=== PATIENT | female | born 1935 | race Caucasian/White ===

== ENCOUNTER 2020-10-07 11:21 | Outpatient (CLI) | payer MEDICARE | END 2020-10-07 11:22 | disposition home or self-care (01) | LOC: CT 11:21 | PROVIDERS: ATTEND Physician Assistant | DX: I61.9 Nontraumatic intracerebral hemorrhage, unspecified (principal); G93.89 Other specified disorders of brain | CPT/HCPCS: 70450 ==

== ENCOUNTER 2021-04-19 09:22 | Inpatient (IN) | payer MEDICARE ==
[2021-04-19 10:10] LABS: #Basophils 0.1 thou/uL (0.0-0.2); #Eosinphils 0.4 thou/uL (0.0-0.7); #Lymphocytes 1.4 thou/uL (1.20-3.40); #Monocytes 0.5 thou/uL (0.11-0.59); #Neutrophils 3.7 thou/uL (1.40-6.50); %Eosinophils 5.8 % (0.0-10.0); %Lymphocytes 23.4 % (21.0-51.0); %Monocytes 8.5 % (0.0-10.0); %Neutrophils 61.3 % (42.0-75.0); Hemoglobin 10.4 g/dL (12.0-16.0); Mean Corpuscular HGB CONC 32.9 g/dL (32.0-36.0); Mean Corpuscular Hemoglobin 29.3 pg (27.0-31.0); Mean Corpuscular Volume 89.1 fL (78.0-98.0); Mean Platelet Volume 7.8 fL (7.4-10.4); Platelet Count 169 thou/uL (130-400); RBC Distribution Width 14.6 % (11.5-14.5); Red Blood Cell (RBC) Count 3.56 mill/uL (4.20-5.40)
[2021-04-19 11:21] LABS: SARS-CoV-2 NAA Rapid Test Not Detected (NotDetected)
[2021-04-19 11:43] LABS: Anion Gap 13 mmol/L (10-20); BUN (Urea Nitrogen) 14 mg/dL (9.8-20.1); Calc. Creatinine Clearance 0 mL/min (70-130); Calcium 8.6 mg/dL (7.8-10.44); Carbon Dioxide 22 mmol/L (23-31); Chloride 106 mmol/L (98-107); Glucose 89 mg/dL (83-110); Potassium 4.2 mmol/L (3.5-5.1); Sodium 137 mmol/L (136-145)
[2021-04-19 11:44] LABS: ALT (SGPT) 11 U/L (8-55); AST (SGOT) 20 U/L (5-34); Albumin 2.9 g/dL (3.4-4.8); Alkaline Phosphatase 97 U/L (40-110); Bilirubin, Total 0.4 mg/dL (0.2-1.2); Globulin 3.6 g/dL (2.4-3.5); Protein, Total 6.5 g/dL (5.8-8.1)
[2021-04-19] MEDS ORDERED: Furosemide 40 MG/4 ML VIAL ONE (13:58)
[2021-04-19] MEDS ORDERED: Ondansetron PF 4 MG/2 ML Vial IVP PRN (14:40)
[2021-04-19] MEDS: Heparin 5,000 UNITS/ML VIAL SC SCH ×2 (18:04→21:15)
[2021-04-19] MEDS: Ampicillin/Sulbactam 3 GM in Sodium Chloride 0.9% 100 ML IVPB SCH ×2 (18:05→23:34)
[2021-04-19 18:18] LABS: Troponin I 0.038 ng/mL (< 0.028)
[2021-04-19 18:29] VITALS: BMI 25.0
[2021-04-19] MEDS ORDERED: hydrALAZINE 10 MG TAB PO PRN (19:31)
[2021-04-19 20:01] LABS: Bacteria/HPF None Seen HPF (None Seen); Bilirubin Negative (Negative); Blood, Urine Negative (Negative); Clarity Clear (Clear); Glucose, Urine (Dipstick) Normal (Negative); Ketone, Urine Negative (Negative); Leukocyte Negative Leu/uL (Negative); Nitrite Negative (Negative); Protein, Urine (Dipstick) Negative (Neg-Trace); RBC/HPF 0-3 HPF (0-3); Specific Gravity, Urine 1.005 (1.002-1.036); Squamous Epithelial 0-3 HPF (0-3); Urobilinogen Normal mg/dL (Less than 2); WBC/HPF 0-3 HPF (0-3)
[2021-04-19 20:12] LABS: Urine Culture Reflex No No
[2021-04-19] MEDS: Furosemide 40 MG/4 ML VIAL SLOW IVP SCH (21:15)
[2021-04-20] MEDS: Ampicillin/Sulbactam 3 GM in Sodium Chloride 0.9% 100 ML IVPB SCH ×4 (04:46→20:48)
[2021-04-20 05:32] LABS: #Eosinphils 0.4 thou/uL (0.0-0.7); #Lymphocytes 1.2 thou/uL (1.20-3.40); #Monocytes 0.6 thou/uL (0.11-0.59); #Neutrophils 4.5 thou/uL (1.40-6.50); %Basophils 0.5 % (0.0-1.0); %Eosinophils 5.7 % (0.0-10.0); %Monocytes 9.4 % (0.0-10.0); %Neutrophils 66.5 % (42.0-75.0); Hemoglobin 10.6 g/dL (12.0-16.0); Mean Corpuscular HGB CONC 31.8 g/dL (32.0-36.0); Mean Corpuscular Hemoglobin 28.2 pg (27.0-31.0); Mean Corpuscular Volume 88.7 fL (78.0-98.0); Mean Platelet Volume 7.3 fL (7.4-10.4); Platelet Count 235 thou/uL (130-400); RBC Distribution Width 14.5 % (11.5-14.5); Red Blood Cell (RBC) Count 3.76 mill/uL (4.20-5.40); White Blood Cell (WBC) Count 6.8 thou/uL (4.8-10.8)
[2021-04-20 05:58] LABS: Anion Gap 14 mmol/L (10-20); BUN (Urea Nitrogen) 13 mg/dL (9.8-20.1); Calc. Creatinine Clearance 37 mL/min (70-130); Carbon Dioxide 30 mmol/L (23-31); Chloride 98 mmol/L (98-107); Sodium 139 mmol/L (136-145)
[2021-04-20 05:59] LABS: Calcium 8.9 mg/dL (7.8-10.44); Glucose 80 mg/dL (83-110)
[2021-04-20] MEDS ORDERED: Potassium Chloride 20 MEQ TAB PO SCH (08:00)
[2021-04-20] MEDS ORDERED: Hydrochlorothiazide 25 MG TAB PO SCH (09:00)
[2021-04-20] MEDS: Losartan 25 MG TAB PO SCH (09:09)
[2021-04-20] MEDS: Amlodipine 5 MG TAB PO SCH (09:10)
[2021-04-20] MEDS: Heparin 5,000 UNITS/ML VIAL SC SCH ×3 (09:10→20:46)
[2021-04-20] MEDS: Venlafaxine HCl XR 150 MG CAP PO SCH (09:10)
[2021-04-20] MEDS: Furosemide 40 MG/4 ML VIAL SLOW IVP SCH ×2 (09:10→20:50)
[2021-04-20] MEDS ORDERED: Labetalol HCl 100 MG/20 ML VIAL ONE (09:34)
[2021-04-20] MEDS ORDERED: Melatonin 3 MG TAB PO PRN (11:18)
[2021-04-20] MEDS ORDERED: Polyethylene Glycol 3350 17 GM Packet PO PRN (11:18)
[2021-04-20] MEDS: Sucralfate 1 GM TAB PO SCH ×3 (11:58→20:48)
[2021-04-20] MEDS: Simethicone Chewable 80 MG TAB PO SCH ×2 (16:12→20:47)
[2021-04-21] MEDS: Ampicillin/Sulbactam 3 GM in Sodium Chloride 0.9% 100 ML IVPB SCH ×2 (03:31→10:07)
[2021-04-21] MEDS: Furosemide 40 MG/4 ML VIAL SLOW IVP SCH ×2 (10:07→21:11)
[2021-04-21] MEDS: Aspirin 81 mg Enteric Coated Tablet PO SCH (10:08)
[2021-04-21] MEDS: Losartan 25 MG TAB PO SCH (10:08)
[2021-04-21] MEDS: Amlodipine 5 MG TAB PO SCH (10:08)
[2021-04-21] MEDS: Venlafaxine HCl XR 150 MG CAP PO SCH (10:08)
[2021-04-21] MEDS: Simethicone Chewable 80 MG TAB PO SCH ×3 (10:09→21:11)
[2021-04-21] MEDS: Atorvastatin Calcium 40 MG TAB PO SCH (10:09)
[2021-04-21] MEDS: Heparin 5,000 UNITS/ML VIAL SC SCH ×3 (10:09→21:12)
[2021-04-21] MEDS: Sucralfate 1 GM TAB PO SCH ×4 (10:09→21:12)
[2021-04-21 12:03] LABS: #Basophils 0.1 thou/uL (0.0-0.2); #Eosinphils 0.2 thou/uL (0.0-0.7); #Lymphocytes 1.5 thou/uL (1.20-3.40); #Monocytes 0.7 thou/uL (0.11-0.59); #Neutrophils 4.9 thou/uL (1.40-6.50); %Basophils 0.8 % (0.0-1.0); %Eosinophils 3.3 % (0.0-10.0); %Lymphocytes 20.3 % (21.0-51.0); %Monocytes 8.8 % (0.0-10.0); %Neutrophils 66.9 % (42.0-75.0); Hemoglobin 11.8 g/dL (12.0-16.0); Mean Corpuscular Hemoglobin 30.2 pg (27.0-31.0); Mean Corpuscular Volume 88.7 fL (78.0-98.0); Mean Platelet Volume 7.2 fL (7.4-10.4); Platelet Count 231 thou/uL (130-400); RBC Distribution Width 14.4 % (11.5-14.5); Red Blood Cell (RBC) Count 3.91 mill/uL (4.20-5.40); White Blood Cell (WBC) Count 7.4 thou/uL (4.8-10.8)
[2021-04-21] MEDS ORDERED: Amiodarone 150 MG, Admixture Fee 1 EACH in Dextrose 5% in Water 100 ML IVPB SCH (12:15)
[2021-04-21 12:20] LABS: Anion Gap 15 mmol/L (10-20); BUN (Urea Nitrogen) 17 mg/dL (9.8-20.1); Calc. Creatinine Clearance 37 mL/min (70-130); Calcium 8.7 mg/dL (7.8-10.44); Carbon Dioxide 32 mmol/L (23-31); Chloride 96 mmol/L (98-107); Glucose 104 mg/dL (83-110); Potassium 3.2 mmol/L (3.5-5.1); Sodium 140 mmol/L (136-145)
[2021-04-21] MEDS: Amiodarone 450 MG, Admixture Fee 1 EACH in Dextrose 5% in Water 250 ML IVPB SCH ×2 (13:03→21:30)
[2021-04-21] MEDS ORDERED: Acetaminophen 325 MG TAB PO PRN (22:39)
[2021-04-22 04:46] LABS: #Basophils 0.1 thou/uL (0.0-0.2); #Eosinphils 0.4 thou/uL (0.0-0.7); #Lymphocytes 1.9 thou/uL (1.20-3.40); #Monocytes 0.6 thou/uL (0.11-0.59); #Neutrophils 3.8 thou/uL (1.40-6.50); %Basophils 0.9 % (0.0-1.0); %Eosinophils 6.1 % (0.0-10.0); %Lymphocytes 27.9 % (21.0-51.0); %Monocytes 8.2 % (0.0-10.0); %Neutrophils 56.8 % (42.0-75.0); Hemoglobin 10.4 g/dL (12.0-16.0); Mean Corpuscular HGB CONC 33.5 g/dL (32.0-36.0); Mean Corpuscular Hemoglobin 29.5 pg (27.0-31.0); Mean Corpuscular Volume 88.2 fL (78.0-98.0); Mean Platelet Volume 7.3 fL (7.4-10.4); Platelet Count 211 thou/uL (130-400); RBC Distribution Width 14.3 % (11.5-14.5); Red Blood Cell (RBC) Count 3.51 mill/uL (4.20-5.40); White Blood Cell (WBC) Count 6.7 thou/uL (4.8-10.8)
[2021-04-22 04:57] LABS: Anion Gap 13 mmol/L (10-20); BUN (Urea Nitrogen) 21 mg/dL (9.8-20.1); Calc. Creatinine Clearance 30 mL/min (70-130); Calcium 8.8 mg/dL (7.8-10.44); Carbon Dioxide 32 mmol/L (23-31); Chloride 94 mmol/L (98-107); Glucose 105 mg/dL (83-110); Sodium 136 mmol/L (136-145)
[2021-04-22 05:00] LABS: Potassium 2.7 mmol/L (3.5-5.1)
[2021-04-22] MEDS ORDERED: Electrolyte Replacement Protocol FS PRN (06:00)
[2021-04-22] MEDS: Potassium Chloride 20 MEQ TAB PO SCH ×2 (06:04→09:16)
[2021-04-22] MEDS: Simethicone Chewable 80 MG TAB PO SCH ×3 (09:16→20:06)
[2021-04-22] MEDS: Aspirin 81 mg Enteric Coated Tablet PO SCH (09:16)
[2021-04-22] MEDS: Atorvastatin Calcium 40 MG TAB PO SCH (09:16)
[2021-04-22] MEDS: Amlodipine 5 MG TAB PO SCH (09:17)
[2021-04-22] MEDS: Heparin 5,000 UNITS/ML VIAL SC SCH ×3 (09:17→20:05)
[2021-04-22] MEDS: Sucralfate 1 GM TAB PO SCH ×4 (09:17→20:06)
[2021-04-22] MEDS: Venlafaxine HCl XR 150 MG CAP PO SCH (09:17)
[2021-04-22] MEDS: Amiodarone 450 MG, Admixture Fee 1 EACH in Dextrose 5% in Water 250 ML IVPB SCH (11:19)
[2021-04-22] MEDS ORDERED: FLU VACC QS2021-22(65YR UP)/PF 240 MCG/0.7 ML SYRINGE IM ONE (18:45)
[2021-04-22] MEDS ORDERED: Amiodarone 200 MG TAB PO SCH (19:15)
[2021-04-22] MEDS: Furosemide 40 MG/4 ML VIAL SLOW IVP SCH (20:07)
[2021-04-23 04:57] LABS: #Eosinphils 0.4 thou/uL (0.0-0.7); #Lymphocytes 1.8 thou/uL (1.20-3.40); #Monocytes 0.5 thou/uL (0.11-0.59); #Neutrophils 3.6 thou/uL (1.40-6.50); %Basophils 0.4 % (0.0-1.0); %Eosinophils 6.6 % (0.0-10.0); %Lymphocytes 28.7 % (21.0-51.0); %Monocytes 8.5 % (0.0-10.0); %Neutrophils 55.8 % (42.0-75.0); Mean Corpuscular HGB CONC 33.1 g/dL (32.0-36.0); Mean Corpuscular Hemoglobin 29.5 pg (27.0-31.0); Mean Platelet Volume 7.4 fL (7.4-10.4); Platelet Count 210 thou/uL (130-400); RBC Distribution Width 14.4 % (11.5-14.5); White Blood Cell (WBC) Count 6.4 thou/uL (4.8-10.8)
[2021-04-23 05:10] LABS: Anion Gap 11 mmol/L (10-20); BUN (Urea Nitrogen) 24 mg/dL (9.8-20.1); Calc. Creatinine Clearance 26 mL/min (70-130); Calcium 9.1 mg/dL (7.8-10.44); Carbon Dioxide 33 mmol/L (23-31); Chloride 96 mmol/L (98-107); Glucose 89 mg/dL (83-110); Potassium 3.3 mmol/L (3.5-5.1); Sodium 137 mmol/L (136-145)
[2021-04-23] MEDS ORDERED: Potassium Chloride 20 MEQ TAB PO SCH (07:00)
[2021-04-23] MEDS: Venlafaxine HCl XR 150 MG CAP PO SCH (08:41)
[2021-04-23] MEDS: Furosemide 40 MG/4 ML VIAL SLOW IVP SCH (08:41)
[2021-04-23] MEDS: Simethicone Chewable 80 MG TAB PO SCH ×3 (08:41→20:43)
[2021-04-23] MEDS: Aspirin 81 mg Enteric Coated Tablet PO SCH (08:41)
[2021-04-23] MEDS: Heparin 5,000 UNITS/ML VIAL SC SCH ×3 (08:43→20:43)
[2021-04-23] MEDS: Atorvastatin Calcium 40 MG TAB PO SCH (08:43)
[2021-04-23] MEDS: Amiodarone 200 MG TAB PO SCH ×2 (08:43→20:43)
[2021-04-23] MEDS: Sucralfate 1 GM TAB PO SCH ×4 (08:43→20:43)
[2021-04-24 08:09] LABS: #Eosinphils 0.4 thou/uL (0.0-0.7); #Lymphocytes 1.4 thou/uL (1.20-3.40); #Monocytes 0.5 thou/uL (0.11-0.59); #Neutrophils 4.7 thou/uL (1.40-6.50); %Basophils 0.2 % (0.0-1.0); %Eosinophils 5.2 % (0.0-10.0); %Lymphocytes 19.7 % (21.0-51.0); %Monocytes 7.4 % (0.0-10.0); %Neutrophils 67.5 % (42.0-75.0); Hemoglobin 10.4 g/dL (12.0-16.0); Mean Corpuscular HGB CONC 32.1 g/dL (32.0-36.0); Mean Corpuscular Hemoglobin 28.4 pg (27.0-31.0); Mean Corpuscular Volume 88.6 fL (78.0-98.0); Mean Platelet Volume 7.6 fL (7.4-10.4); Platelet Count 197 thou/uL (130-400); RBC Distribution Width 14.3 % (11.5-14.5); Red Blood Cell (RBC) Count 3.65 mill/uL (4.20-5.40)
[2021-04-24] MEDS: Amiodarone 200 MG TAB PO SCH (08:28)
[2021-04-24] MEDS: Simethicone Chewable 80 MG TAB PO SCH ×2 (08:28→16:00)
[2021-04-24] MEDS: Atorvastatin Calcium 40 MG TAB PO SCH (08:28)
[2021-04-24] MEDS: Aspirin 81 mg Enteric Coated Tablet PO SCH (08:28)
[2021-04-24] MEDS: Sucralfate 1 GM TAB PO SCH ×3 (08:28→16:01)
[2021-04-24] MEDS: Venlafaxine HCl XR 150 MG CAP PO SCH (08:28)
[2021-04-24 08:29] LABS: Anion Gap 12 mmol/L (10-20); BUN (Urea Nitrogen) 28 mg/dL (9.8-20.1); Calc. Creatinine Clearance 24 mL/min (70-130); Calcium 9.4 mg/dL (7.8-10.44); Carbon Dioxide 30 mmol/L (23-31); Chloride 96 mmol/L (98-107); Glucose 85 mg/dL (83-110); Potassium 3.5 mmol/L (3.5-5.1); Sodium 134 mmol/L (136-145)
[2021-04-24] MEDS: Heparin 5,000 UNITS/ML VIAL SC SCH ×2 (08:29→16:00)
[2021-04-24] MEDS ORDERED: Potassium Chloride 20 MEQ TAB PO SCH (09:00)
[2021-04-24 16:27] VITALS: BP 111/57; TEMP 98.3
== END 2021-04-24 18:21 | DRG 291 ==
LOC: ERS 09:22 → 2NO 14:35
PROVIDERS: ADMIT Internal Medicine; ATTEND Internal Medicine
DX: I13.0 Hypertensive heart and chronic kidney disease with heart failure and stage 1 through stage 4 chronic kidney disease, or unspecified chronic kidney disease (principal); J96.21 Acute and chronic respiratory failure with hypoxia; Z66 Do not resuscitate; I50.31 Acute diastolic (congestive) heart failure; I69.354 Hemiplegia and hemiparesis following cerebral infarction affecting left non-dominant side; N39.0 Urinary tract infection, site not specified; Z20.822 Contact with and (suspected) exposure to COVID-19; F41.9 Anxiety disorder, unspecified; E78.5 Hyperlipidemia, unspecified; I73.9 Peripheral vascular disease, unspecified; I48.0 Paroxysmal atrial fibrillation; N18.30 Chronic kidney disease, stage 3 unspecified; Z96.659 Presence of unspecified artificial knee joint; E87.6 Hypokalemia; I95.9 Hypotension, unspecified; Z89.422 Acquired absence of other left toe(s); Z90.710 Acquired absence of both cervix and uterus; Z79.82 Long term (current) use of aspirin; Z79.899 Other long term (current) drug therapy; Z89.421 Acquired absence of other right toe(s); Z98.890 Other specified postprocedural states
CPT/HCPCS: 0240U; 36415; 71045; 80048; 80053; 81001; 83880; 84145; 84484; 85025; 90471; 90662; 93005; 93306; 96374; G0008; J0282; J0295; J1644; J1940; J3490; J7070

== ENCOUNTER 2021-06-23 08:34 | Inpatient (IN) | payer MEDICARE ==
[2021-06-23] MEDS ORDERED: Furosemide 40 MG/4 ML VIAL ONE (09:02)
[2021-06-23 09:43] LABS: #Eosinphils 0.2 thou/uL (0.0-0.7); #Lymphocytes 0.8 thou/uL (1.20-3.40); #Monocytes 0.4 thou/uL (0.11-0.59); #Neutrophils 5.9 thou/uL (1.40-6.50); %Basophils 0.3 % (0.0-1.0); %Eosinophils 2.2 % (0.0-10.0); %Lymphocytes 11.1 % (21.0-51.0); %Monocytes 5.2 % (0.0-10.0); %Neutrophils 81.2 % (42.0-75.0); Hemoglobin 9.8 g/dL (12.0-16.0); Mean Corpuscular HGB CONC 31.1 g/dL (32.0-36.0); Mean Corpuscular Hemoglobin 28.3 pg (27.0-31.0); Mean Corpuscular Volume 91.2 fL (78.0-98.0); Mean Platelet Volume 7.6 fL (7.4-10.4); Platelet Count 189 thou/uL (130-400); Red Blood Cell (RBC) Count 3.45 mill/uL (4.20-5.40); White Blood Cell (WBC) Count 7.2 thou/uL (4.8-10.8)
[2021-06-23 09:53] LABS: ALT (SGPT) Less than 7 U/L (8-55); AST (SGOT) 13 U/L (5-34); Albumin 3.5 g/dL (3.4-4.8); Alkaline Phosphatase 91 U/L (40-110); Anion Gap 13 mmol/L (10-20); BUN (Urea Nitrogen) 17 mg/dL (9.8-20.1); Bilirubin, Total 0.5 mg/dL (0.2-1.2); CK (CPK) 23 U/L (29-168); Calc. Creatinine Clearance 0 mL/min (70-130); Calcium 8.8 mg/dL (7.8-10.44); Carbon Dioxide 28 mmol/L (23-31); Chloride 103 mmol/L (98-107); Globulin 3.1 g/dL (2.4-3.5); Glucose 102 mg/dL (83-110); Lipase 19 U/L (8-78); Potassium 3.7 mmol/L (3.5-5.1); Protein, Total 6.6 g/dL (5.8-8.1); Sodium 140 mmol/L (136-145)
[2021-06-23 09:56] LABS: CKMB 0.7 ng/mL (0-6.6)
[2021-06-23 10:15] LABS: SARS-CoV-2 NAA Rapid Test Not Detected (NotDetected)
[2021-06-23 11:04] LABS: Bacteria/HPF 4+ HPF (None Seen); Bilirubin Negative (Negative); Blood, Urine Negative (Negative); Clarity Clear (Clear); Glucose, Urine (Dipstick) Normal (Negative); Ketone, Urine Negative (Negative); Leukocyte 75 Leu/uL (Negative); Nitrite 1+ (Negative); Protein, Urine (Dipstick) Negative (Neg-Trace); RBC/HPF 0-3 HPF (0-3); Specific Gravity, Urine 1.009 (1.002-1.036); Urobilinogen Normal mg/dL (Less than 2); pH, Urine 5.5 (5.0-9.0)
[2021-06-23] MEDS ORDERED: Iopamidol-370 76% 500 ML 1 ML ONE (11:25)
[2021-06-23] MEDS ORDERED: cefTRIAXone\\ROCEPHIN 1 GM VIAL ONE (12:18)
[2021-06-23] MEDS ORDERED: Melatonin 3 MG TAB PO PRN (12:39)
[2021-06-23] MEDS ORDERED: hydrALAZINE 10 MG TAB PO PRN (12:39)
[2021-06-23] MEDS ORDERED: Polyethylene Glycol 3350 17 GM Packet PO PRN (12:39)
[2021-06-23] MEDS ORDERED: Ondansetron PF 4 MG/2 ML Vial IVP PRN (12:46)
[2021-06-23] MEDS ORDERED: Acetaminophen 500 MG TAB PO SCH (13:15)
[2021-06-23] MEDS ORDERED: Furosemide 40 MG/4 ML VIAL SLOW IVP SCH (14:00)
[2021-06-23 14:18] LABS: Troponin I 0.034 ng/mL (< 0.028)
[2021-06-23] MEDS: Sucralfate 1 GM TAB PO SCH ×2 (17:44→21:33)
[2021-06-23] MEDS: Acetaminophen 500 MG TAB PO SCH ×2 (17:44→21:33)
[2021-06-23] MEDS: Simethicone Chewable 80 MG TAB PO SCH ×2 (17:45→21:34)
[2021-06-23] MEDS: Amiodarone 200 MG TAB PO SCH (21:34)
[2021-06-24] MEDS ORDERED: Sodium Chloride 0.9% 500 ML IV SCH (01:45)
[2021-06-24 04:25] LABS: Hemoglobin 10.9 g/dL (12.0-16.0); Mean Corpuscular Hemoglobin 28.8 pg (27.0-31.0); Mean Corpuscular Volume 90.1 fL (78.0-98.0); Mean Platelet Volume 7.5 fL (7.4-10.4); Platelet Count 209 thou/uL (130-400); RBC Distribution Width 13.9 % (11.5-14.5); Red Blood Cell (RBC) Count 3.78 mill/uL (4.20-5.40); White Blood Cell (WBC) Count 14.8 thou/uL (4.8-10.8)
[2021-06-24] MEDS: Acetaminophen 500 MG TAB PO SCH ×6 (04:28→20:30)
[2021-06-24 04:39] LABS: Anion Gap 14 mmol/L (10-20); BUN (Urea Nitrogen) 19 mg/dL (9.8-20.1); Calc. Creatinine Clearance 25 mL/min (70-130); Calcium 8.5 mg/dL (7.8-10.44); Carbon Dioxide 27 mmol/L (23-31); Chloride 100 mmol/L (98-107); Glucose 80 mg/dL (83-110); Sodium 138 mmol/L (136-145)
[2021-06-24] MEDS ORDERED: Furosemide 40 MG/4 ML VIAL SLOW IVP SCH (06:00)
[2021-06-24] MEDS ORDERED: Potassium Chloride 20 MEQ TAB PO SCH (06:00)
[2021-06-24 06:14] LABS: Band 13 % (5-11); Eosinophils 3 % (0-10); Lymphocytes 5 % (21-51); MDiff Complete? YES; Neutrophil 79 % (42-75)
[2021-06-24] MEDS ORDERED: Potassium Bicarbonate/Cit Ac 25 MEQ TAB PO SCH (08:00)
[2021-06-24 08:10] LABS: Magnesium 1.6 mg/dL (1.6-2.6)
[2021-06-24] MEDS ORDERED: Amlodipine 5 MG TAB PO SCH (09:00)
[2021-06-24] MEDS ORDERED: Losartan 25 MG TAB PO SCH (09:00)
[2021-06-24] MEDS: Venlafaxine HCl XR 150 MG CAP PO SCH (09:08)
[2021-06-24] MEDS: Aspirin 81 mg Enteric Coated Tablet PO SCH (09:09)
[2021-06-24] MEDS: Atorvastatin Calcium 40 MG TAB PO SCH (09:09)
[2021-06-24] MEDS: Sucralfate 1 GM TAB PO SCH ×4 (09:09→20:32)
[2021-06-24] MEDS: Docusate 100 MG CAP PO SCH (09:09)
[2021-06-24] MEDS: Simethicone Chewable 80 MG TAB PO SCH ×3 (09:09→20:30)
[2021-06-24] MEDS: Senokot S 8.6-50 MG TAB PO SCH (09:09)
[2021-06-24] MEDS: Amiodarone 200 MG TAB PO SCH ×2 (09:10→20:31)
[2021-06-24] MEDS: Cholecalciferol 1,000 UNITS (25 MCG) TAB PO SCH (09:10)
[2021-06-24] MEDS: cefTRIAXone\\ROCEPHIN 1 GM in Sodium Chloride 0.9% 100 ML IVPB SCH (11:34)
[2021-06-25] MEDS: Acetaminophen 500 MG TAB PO SCH ×6 (01:26→21:04)
[2021-06-25 04:38] LABS: Hemoglobin 9.6 g/dL (12.0-16.0); Mean Corpuscular HGB CONC 31.2 g/dL (32.0-36.0); Mean Corpuscular Hemoglobin 28.1 pg (27.0-31.0); Mean Corpuscular Volume 90.1 fL (78.0-98.0); Mean Platelet Volume 7.8 fL (7.4-10.4); Platelet Count 187 thou/uL (130-400); Red Blood Cell (RBC) Count 3.42 mill/uL (4.20-5.40); White Blood Cell (WBC) Count 18.1 thou/uL (4.8-10.8)
[2021-06-25 05:17] LABS: Anion Gap 16 mmol/L (10-20); BUN (Urea Nitrogen) 26 mg/dL (9.8-20.1); Calc. Creatinine Clearance 23 mL/min (70-130); Calcium 8.6 mg/dL (7.8-10.44); Carbon Dioxide 26 mmol/L (23-31); Chloride 101 mmol/L (98-107); Glucose 87 mg/dL (83-110); Potassium 3.8 mmol/L (3.5-5.1); Sodium 139 mmol/L (136-145)
[2021-06-25 05:18] LABS: Band 8 % (5-11); Eosinophils 1 % (0-10); Lymphocytes 3 % (21-51); MDiff Complete? YES; Monocytes 2 % (0-10); Neutrophil 86 % (42-75)
[2021-06-25] MEDS: Senokot S 8.6-50 MG TAB PO SCH (08:58)
[2021-06-25] MEDS: Amiodarone 200 MG TAB PO SCH ×2 (08:59→21:03)
[2021-06-25] MEDS: Cholecalciferol 1,000 UNITS (25 MCG) TAB PO SCH (08:59)
[2021-06-25] MEDS: Sucralfate 1 GM TAB PO SCH ×4 (08:59→21:03)
[2021-06-25] MEDS: Simethicone Chewable 80 MG TAB PO SCH ×3 (09:00→21:03)
[2021-06-25] MEDS: Furosemide 20 MG/2 ML VIAL SLOW IVP SCH (09:00)
[2021-06-25] MEDS: Atorvastatin Calcium 40 MG TAB PO SCH (09:00)
[2021-06-25] MEDS: Aspirin 81 mg Enteric Coated Tablet PO SCH (09:00)
[2021-06-25] MEDS: Docusate 100 MG CAP PO SCH (09:00)
[2021-06-25] MEDS: Venlafaxine HCl XR 150 MG CAP PO SCH (09:01)
[2021-06-25] MEDS: cefTRIAXone\\ROCEPHIN 1 GM in Sodium Chloride 0.9% 100 ML IVPB SCH (11:50)
[2021-06-26] MEDS: Acetaminophen 500 MG TAB PO SCH ×6 (02:23→21:12)
[2021-06-26] MEDS: Venlafaxine HCl XR 150 MG CAP PO SCH (10:21)
[2021-06-26] MEDS: Docusate 100 MG CAP PO SCH (10:21)
[2021-06-26] MEDS: Sucralfate 1 GM TAB PO SCH ×4 (10:21→21:13)
[2021-06-26] MEDS: Cholecalciferol 1,000 UNITS (25 MCG) TAB PO SCH (10:22)
[2021-06-26] MEDS: Atorvastatin Calcium 40 MG TAB PO SCH (10:22)
[2021-06-26] MEDS: Aspirin 81 mg Enteric Coated Tablet PO SCH (10:22)
[2021-06-26] MEDS: Amiodarone 200 MG TAB PO SCH ×2 (10:22→21:13)
[2021-06-26] MEDS: Senokot S 8.6-50 MG TAB PO SCH (10:22)
[2021-06-26] MEDS: Furosemide 20 MG/2 ML VIAL SLOW IVP SCH (10:23)
[2021-06-26] MEDS: Simethicone Chewable 80 MG TAB PO SCH ×3 (10:23→21:19)
[2021-06-26] MEDS: cefTRIAXone\\ROCEPHIN 1 GM in Sodium Chloride 0.9% 100 ML IVPB SCH (12:09)
[2021-06-27] MEDS: Acetaminophen 500 MG TAB PO SCH ×6 (01:00→20:38)
[2021-06-27 05:42] LABS: Anion Gap 11 mmol/L (10-20); BUN (Urea Nitrogen) 24 mg/dL (9.8-20.1); Calc. Creatinine Clearance 29 mL/min (70-130); Calcium 8.7 mg/dL (7.8-10.44); Carbon Dioxide 31 mmol/L (23-31); Chloride 100 mmol/L (98-107); Glucose 89 mg/dL (83-110); Potassium 3.4 mmol/L (3.5-5.1); Sodium 139 mmol/L (136-145)
[2021-06-27 06:17] LABS: #Eosinphils 0.6 thou/uL (0.0-0.7); #Lymphocytes 0.9 thou/uL (1.20-3.40); #Monocytes 0.4 thou/uL (0.11-0.59); #Neutrophils 6.8 thou/uL (1.40-6.50); %Basophils 0.1 % (0.0-1.0); %Eosinophils 7.1 % (0.0-10.0); %Lymphocytes 10.1 % (21.0-51.0); %Neutrophils 77.8 % (42.0-75.0); Hemoglobin 9.4 g/dL (12.0-16.0); Mean Corpuscular HGB CONC 31.5 g/dL (32.0-36.0); Mean Corpuscular Hemoglobin 28.5 pg (27.0-31.0); Mean Corpuscular Volume 90.6 fL (78.0-98.0); Mean Platelet Volume 7.8 fL (7.4-10.4); Platelet Count 178 thou/uL (130-400); RBC Distribution Width 14.2 % (11.5-14.5); Red Blood Cell (RBC) Count 3.28 mill/uL (4.20-5.40); White Blood Cell (WBC) Count 8.7 thou/uL (4.8-10.8)
[2021-06-27] MEDS: Sucralfate 1 GM TAB PO SCH ×4 (07:30→20:39)
[2021-06-27] MEDS ORDERED: Potassium Bicarbonate/Cit Ac 25 MEQ TAB PO SCH (08:00)
[2021-06-27] MEDS: Cholecalciferol 1,000 UNITS (25 MCG) TAB PO SCH (10:23)
[2021-06-27] MEDS: Docusate 100 MG CAP PO SCH (10:23)
[2021-06-27] MEDS: Simethicone Chewable 80 MG TAB PO SCH ×3 (10:24→20:39)
[2021-06-27] MEDS: Amiodarone 200 MG TAB PO SCH ×2 (10:24→20:38)
[2021-06-27] MEDS: Atorvastatin Calcium 40 MG TAB PO SCH (10:24)
[2021-06-27] MEDS: Senokot S 8.6-50 MG TAB PO SCH (10:24)
[2021-06-27] MEDS: Venlafaxine HCl XR 150 MG CAP PO SCH (10:25)
[2021-06-27] MEDS: Furosemide 20 MG/2 ML VIAL SLOW IVP SCH (10:25)
[2021-06-27] MEDS: Ciprofloxacin Lactate/D5W 200 MG in Premix Bag 1 BAG IVPB SCH ×2 (10:26→20:39)
[2021-06-28] MEDS: Acetaminophen 500 MG TAB PO SCH ×6 (01:33→20:17)
[2021-06-28 05:41] LABS: #Eosinphils 0.5 thou/uL (0.0-0.7); #Lymphocytes 1.5 thou/uL (1.20-3.40); #Monocytes 0.6 thou/uL (0.11-0.59); #Neutrophils 4.5 thou/uL (1.40-6.50); %Eosinophils 7.5 % (0.0-10.0); %Lymphocytes 21.2 % (21.0-51.0); %Monocytes 8.4 % (0.0-10.0); %Neutrophils 62.9 % (42.0-75.0); Mean Corpuscular HGB CONC 31.6 g/dL (32.0-36.0); Mean Corpuscular Hemoglobin 28.5 pg (27.0-31.0); Mean Corpuscular Volume 90.2 fL (78.0-98.0); Mean Platelet Volume 8.2 fL (7.4-10.4); Platelet Count 190 thou/uL (130-400); Red Blood Cell (RBC) Count 3.15 mill/uL (4.20-5.40); White Blood Cell (WBC) Count 7.2 thou/uL (4.8-10.8)
[2021-06-28 06:06] LABS: Anion Gap 11 mmol/L (10-20); BUN (Urea Nitrogen) 22 mg/dL (9.8-20.1); Calc. Creatinine Clearance 34 mL/min (70-130); Calcium 8.5 mg/dL (7.8-10.44); Carbon Dioxide 31 mmol/L (23-31); Chloride 99 mmol/L (98-107); Glucose 84 mg/dL (83-110); Potassium 3.3 mmol/L (3.5-5.1); Sodium 138 mmol/L (136-145)
[2021-06-28] MEDS ORDERED: PROPOFOL 200 MG/20 ML VIAL ONE (09:33)
[2021-06-28] MEDS ORDERED: Potassium Chloride 20 MEQ TAB PO SCH (10:00)
[2021-06-28] MEDS ORDERED: Apixaban 2.5 MG TAB PO SCH (10:00)
[2021-06-28] MEDS: Sucralfate 1 GM TAB PO SCH ×4 (11:01→20:20)
[2021-06-28] MEDS: Simethicone Chewable 80 MG TAB PO SCH ×3 (11:01→20:17)
[2021-06-28] MEDS: Venlafaxine HCl XR 150 MG CAP PO SCH (11:01)
[2021-06-28] MEDS: Docusate 100 MG CAP PO SCH (11:01)
[2021-06-28] MEDS: Atorvastatin Calcium 40 MG TAB PO SCH (11:01)
[2021-06-28] MEDS: Cholecalciferol 1,000 UNITS (25 MCG) TAB PO SCH (11:02)
[2021-06-28] MEDS: Ciprofloxacin Lactate/D5W 200 MG in Premix Bag 1 BAG IVPB SCH ×2 (11:02→20:20)
[2021-06-28] MEDS: Senokot S 8.6-50 MG TAB PO SCH (11:02)
[2021-06-28] MEDS: Amiodarone 200 MG TAB PO SCH ×2 (11:02→20:20)
[2021-06-28] MEDS: Furosemide 20 MG/2 ML VIAL SLOW IVP SCH (11:36)
[2021-06-28] MEDS ORDERED: Furosemide 20 MG/2 ML VIAL SLOW IVP SCH (12:45)
[2021-06-28] MEDS: Apixaban 2.5 MG TAB PO SCH (20:19)
[2021-06-29] MEDS: Acetaminophen 500 MG TAB PO SCH ×6 (04:26→21:12)
[2021-06-29 05:33] LABS: #Eosinphils 0.4 thou/uL (0.0-0.7); #Lymphocytes 2.3 thou/uL (1.20-3.40); #Monocytes 0.6 thou/uL (0.11-0.59); #Neutrophils 4.8 thou/uL (1.40-6.50); %Eosinophils 5.2 % (0.0-10.0); %Lymphocytes 28.7 % (21.0-51.0); %Monocytes 7.6 % (0.0-10.0); %Neutrophils 58.5 % (42.0-75.0); Hemoglobin 9.9 g/dL (12.0-16.0); Mean Corpuscular Volume 90.3 fL (78.0-98.0); Mean Platelet Volume 7.8 fL (7.4-10.4); Platelet Count 208 thou/uL (130-400); RBC Distribution Width 14.2 % (11.5-14.5); Red Blood Cell (RBC) Count 3.55 mill/uL (4.20-5.40); White Blood Cell (WBC) Count 8.2 thou/uL (4.8-10.8)
[2021-06-29 05:44] LABS: Anion Gap 12 mmol/L (10-20); BUN (Urea Nitrogen) 21 mg/dL (9.8-20.1); Calc. Creatinine Clearance 31 mL/min (70-130); Calcium 9.3 mg/dL (7.8-10.44); Carbon Dioxide 32 mmol/L (23-31); Chloride 99 mmol/L (98-107); Glucose 89 mg/dL (83-110); Potassium 3.9 mmol/L (3.5-5.1); Sodium 139 mmol/L (136-145)
[2021-06-29] MEDS ORDERED: Potassium Chloride 20 MEQ TAB PO SCH (08:30)
[2021-06-29] MEDS: Ciprofloxacin Lactate/D5W 200 MG in Premix Bag 1 BAG IVPB SCH ×2 (09:09→21:11)
[2021-06-29] MEDS: Docusate 100 MG CAP PO SCH (09:10)
[2021-06-29] MEDS: Atorvastatin Calcium 40 MG TAB PO SCH (09:10)
[2021-06-29] MEDS: Amiodarone 200 MG TAB PO SCH ×2 (09:10→21:12)
[2021-06-29] MEDS: Senokot S 8.6-50 MG TAB PO SCH (09:10)
[2021-06-29] MEDS: Venlafaxine HCl XR 150 MG CAP PO SCH (09:10)
[2021-06-29] MEDS: Sucralfate 1 GM TAB PO SCH ×4 (09:10→21:12)
[2021-06-29] MEDS: Apixaban 2.5 MG TAB PO SCH ×2 (09:10→21:15)
[2021-06-29] MEDS: Cholecalciferol 1,000 UNITS (25 MCG) TAB PO SCH (09:10)
[2021-06-29] MEDS: Simethicone Chewable 80 MG TAB PO SCH ×3 (09:10→21:12)
[2021-06-30] MEDS: Acetaminophen 500 MG TAB PO SCH ×6 (01:00→21:12)
[2021-06-30 05:09] LABS: Iron 18 ug/dL (50-170); Iron Binding Capacity, Total 160 mcg/dL (265-497)
[2021-06-30 05:30] LABS: Ferritin 289.27 ng/mL (10-291); Thyroid Stimulating Hormone 1.3042 uIU/mL (0.35-4.94)
[2021-06-30] MEDS ORDERED: Furosemide 20 MG TAB PO SCH (09:00)
[2021-06-30] MEDS: Apixaban 2.5 MG TAB PO SCH ×2 (09:13→21:12)
[2021-06-30] MEDS: Cholecalciferol 1,000 UNITS (25 MCG) TAB PO SCH (09:13)
[2021-06-30] MEDS: Senokot S 8.6-50 MG TAB PO SCH (09:13)
[2021-06-30] MEDS: Potassium Chloride 20 MEQ TAB PO SCH (09:13)
[2021-06-30] MEDS: Amiodarone 200 MG TAB PO SCH (09:13)
[2021-06-30] MEDS: Docusate 100 MG CAP PO SCH (09:13)
[2021-06-30] MEDS: Atorvastatin Calcium 40 MG TAB PO SCH (09:13)
[2021-06-30] MEDS: Simethicone Chewable 80 MG TAB PO SCH ×3 (09:14→21:11)
[2021-06-30] MEDS: Venlafaxine HCl XR 150 MG CAP PO SCH (09:14)
[2021-06-30] MEDS: Sucralfate 1 GM TAB PO SCH ×4 (09:14→21:12)
[2021-06-30] MEDS: Ciprofloxacin Lactate/D5W 200 MG in Premix Bag 1 BAG IVPB SCH ×2 (09:17→21:13)
[2021-06-30] MEDS ORDERED: Amiodarone 200 MG TAB PO SCH ×2 (09:24→09:30)
[2021-06-30] MEDS ORDERED: Furosemide 20 MG/2 ML VIAL SLOW IVP SCH (09:30)
[2021-06-30] MEDS ORDERED: Potassium Chloride 20 MEQ TAB PO SCH (12:00)
[2021-06-30] MEDS: Furosemide 20 MG/2 ML VIAL SLOW IVP SCH (14:07)
[2021-06-30] MEDS ORDERED: Folic Acid 1 MG TAB PO SCH (14:15)
[2021-06-30] MEDS: Spironolactone 25 MG TAB PO SCH (16:05)
[2021-07-01] MEDS: Acetaminophen 500 MG TAB PO SCH ×6 (03:39→20:38)
[2021-07-01 05:09] LABS: Anion Gap 12 mmol/L (10-20); BUN (Urea Nitrogen) 17 mg/dL (9.8-20.1); Calc. Creatinine Clearance 32 mL/min (70-130); Calcium 8.7 mg/dL (7.8-10.44); Carbon Dioxide 29 mmol/L (23-31); Chloride 100 mmol/L (98-107); Glucose 81 mg/dL (83-110); Sodium 137 mmol/L (136-145)
[2021-07-01] MEDS: Furosemide 20 MG/2 ML VIAL SLOW IVP SCH (05:28)
[2021-07-01] MEDS: Potassium Chloride 20 MEQ TAB PO SCH (08:32)
[2021-07-01] MEDS: Venlafaxine HCl XR 150 MG CAP PO SCH (08:32)
[2021-07-01] MEDS: Cholecalciferol 1,000 UNITS (25 MCG) TAB PO SCH (08:32)
[2021-07-01] MEDS: Simethicone Chewable 80 MG TAB PO SCH ×3 (08:32→20:38)
[2021-07-01] MEDS: Atorvastatin Calcium 40 MG TAB PO SCH (08:32)
[2021-07-01] MEDS: Folic Acid 1 MG TAB PO SCH (08:33)
[2021-07-01] MEDS: Sucralfate 1 GM TAB PO SCH ×4 (08:33→20:38)
[2021-07-01] MEDS: Spironolactone 25 MG TAB PO SCH ×2 (08:33→16:14)
[2021-07-01] MEDS: Docusate 100 MG CAP PO SCH (08:34)
[2021-07-01] MEDS: Ciprofloxacin Lactate/D5W 200 MG in Premix Bag 1 BAG IVPB SCH ×2 (08:34→20:37)
[2021-07-01] MEDS: Senokot S 8.6-50 MG TAB PO SCH (08:34)
[2021-07-01] MEDS ORDERED: Furosemide 40 MG/4 ML VIAL SLOW IVP SCH (09:00)
[2021-07-01] MEDS ORDERED: Amiodarone 200 MG TAB PO SCH (09:00)
[2021-07-01] MEDS ORDERED: Ferrous Sulfate 325 MG TAB PO SCH ×2 (09:30)
[2021-07-01] MEDS: Amiodarone 200 MG TAB PO SCH ×2 (09:40→20:38)
[2021-07-01] MEDS: Furosemide 40 MG/4 ML VIAL SLOW IVP SCH (13:24)
[2021-07-01] MEDS ORDERED: Furosemide 20 MG/2 ML VIAL SLOW IVP SCH (14:00)
[2021-07-01] MEDS: Ferrous Sulfate 325 MG TAB PO SCH (16:13)
[2021-07-01 23:07] LABS: SARS-CoV-2 PCR by NAA Not Detected (NotDetected)
[2021-07-02] MEDS: Acetaminophen 500 MG TAB PO SCH ×6 (01:22→21:22)
[2021-07-02 05:24] LABS: Anion Gap 17 mmol/L (10-20); BUN (Urea Nitrogen) 18 mg/dL (9.8-20.1); Calc. Creatinine Clearance 29 mL/min (70-130); Calcium 8.8 mg/dL (7.8-10.44); Carbon Dioxide 23 mmol/L (23-31); Chloride 98 mmol/L (98-107); Glucose 82 mg/dL (83-110); Potassium 3.9 mmol/L (3.5-5.1); Sodium 134 mmol/L (136-145)
[2021-07-02] MEDS: Furosemide 40 MG/4 ML VIAL SLOW IVP SCH ×2 (06:12→14:43)
[2021-07-02] MEDS: Ciprofloxacin Lactate/D5W 200 MG in Premix Bag 1 BAG IVPB SCH ×2 (08:50→21:22)
[2021-07-02] MEDS: Senokot S 8.6-50 MG TAB PO SCH (08:51)
[2021-07-02] MEDS: Venlafaxine HCl XR 150 MG CAP PO SCH (08:51)
[2021-07-02] MEDS: Folic Acid 1 MG TAB PO SCH (08:52)
[2021-07-02] MEDS: Simethicone Chewable 80 MG TAB PO SCH ×3 (08:52→21:22)
[2021-07-02] MEDS: Docusate 100 MG CAP PO SCH (08:52)
[2021-07-02] MEDS: Ferrous Sulfate 325 MG TAB PO SCH ×2 (08:52→17:43)
[2021-07-02] MEDS: Spironolactone 25 MG TAB PO SCH ×2 (08:53→17:43)
[2021-07-02] MEDS: Amiodarone 200 MG TAB PO SCH ×2 (08:53→21:22)
[2021-07-02] MEDS: Atorvastatin Calcium 40 MG TAB PO SCH (08:53)
[2021-07-02] MEDS: Sucralfate 1 GM TAB PO SCH ×4 (08:53→21:22)
[2021-07-02] MEDS: Cholecalciferol 1,000 UNITS (25 MCG) TAB PO SCH (08:53)
[2021-07-02] MEDS: Potassium Chloride 20 MEQ TAB PO SCH (08:53)
[2021-07-03] MEDS ORDERED: Norepinephrine 8 MG/0.9% NS 250 ML ONE (02:15)
[2021-07-03] MEDS: Norepinephrine 8 MG/0.9% NS 250 ML IVPB SCH (02:30)
[2021-07-03] MEDS: Acetaminophen 500 MG TAB PO SCH ×6 (02:53→20:51)
[2021-07-03 04:25] LABS: Anion Gap 15 mmol/L (10-20); BUN (Urea Nitrogen) 26 mg/dL (9.8-20.1); Calc. Creatinine Clearance 23 mL/min (70-130); Calcium 8.9 mg/dL (7.8-10.44); Carbon Dioxide 28 mmol/L (23-31); Chloride 99 mmol/L (98-107); Glucose 90 mg/dL (83-110); Potassium 3.8 mmol/L (3.5-5.1); Sodium 138 mmol/L (136-145)
[2021-07-03] MEDS: Furosemide 40 MG/4 ML VIAL SLOW IVP SCH (06:23)
[2021-07-03] MEDS: Sucralfate 1 GM TAB PO SCH ×4 (08:05→20:51)
[2021-07-03] MEDS: Ferrous Sulfate 325 MG TAB PO SCH ×2 (08:05→18:07)
[2021-07-03] MEDS: Potassium Chloride 20 MEQ TAB PO SCH (08:05)
[2021-07-03] MEDS: Amiodarone 200 MG TAB PO SCH (08:50)
[2021-07-03] MEDS: Spironolactone 25 MG TAB PO SCH (08:50)
[2021-07-03] MEDS ORDERED: Sodium Chloride 0.9% 500 ML IV SCH (09:15)
[2021-07-03] MEDS: Folic Acid 1 MG TAB PO SCH (09:59)
[2021-07-03] MEDS: Docusate 100 MG CAP PO SCH (09:59)
[2021-07-03] MEDS: Atorvastatin Calcium 40 MG TAB PO SCH (09:59)
[2021-07-03] MEDS: Senokot S 8.6-50 MG TAB PO SCH (09:59)
[2021-07-03] MEDS: Simethicone Chewable 80 MG TAB PO SCH ×3 (10:01→20:52)
[2021-07-03] MEDS: Ciprofloxacin Lactate/D5W 200 MG in Premix Bag 1 BAG IVPB SCH (10:05)
[2021-07-03] MEDS: Cholecalciferol 1,000 UNITS (25 MCG) TAB PO SCH (10:05)
[2021-07-03] MEDS: Venlafaxine HCl XR 150 MG CAP PO SCH (10:16)
[2021-07-04] MEDS: Norepinephrine 8 MG/0.9% NS 250 ML IVPB SCH (00:11)
[2021-07-04] MEDS: Acetaminophen 500 MG TAB PO SCH ×6 (01:52→20:09)
[2021-07-04 03:49] LABS: Anion Gap 15 mmol/L (10-20); BUN (Urea Nitrogen) 22 mg/dL (9.8-20.1); Calc. Creatinine Clearance 25 mL/min (70-130); Calcium 8.6 mg/dL (7.8-10.44); Carbon Dioxide 22 mmol/L (23-31); Chloride 100 mmol/L (98-107); Glucose 81 mg/dL (83-110); Potassium 4.2 mmol/L (3.5-5.1); Sodium 133 mmol/L (136-145)
[2021-07-04] MEDS: Simethicone Chewable 80 MG TAB PO SCH ×3 (09:58→20:09)
[2021-07-04] MEDS: Ferrous Sulfate 325 MG TAB PO SCH ×2 (09:58→15:29)
[2021-07-04] MEDS: Docusate 100 MG CAP PO SCH (09:59)
[2021-07-04] MEDS: Senokot S 8.6-50 MG TAB PO SCH (09:59)
[2021-07-04] MEDS: Folic Acid 1 MG TAB PO SCH (09:59)
[2021-07-04] MEDS: Atorvastatin Calcium 40 MG TAB PO SCH (09:59)
[2021-07-04] MEDS: Venlafaxine HCl XR 150 MG CAP PO SCH (10:00)
[2021-07-04] MEDS: Sucralfate 1 GM TAB PO SCH ×4 (10:03→20:09)
[2021-07-04] MEDS: Cholecalciferol 1,000 UNITS (25 MCG) TAB PO SCH (10:03)
[2021-07-05] MEDS: Acetaminophen 500 MG TAB PO SCH ×6 (01:28→20:32)
[2021-07-05] MEDS: Sucralfate 1 GM TAB PO SCH ×4 (07:25→20:33)
[2021-07-05] MEDS: Atorvastatin Calcium 40 MG TAB PO SCH (07:49)
[2021-07-05] MEDS: Senokot S 8.6-50 MG TAB PO SCH (07:49)
[2021-07-05] MEDS: Folic Acid 1 MG TAB PO SCH (07:50)
[2021-07-05] MEDS: Venlafaxine HCl XR 150 MG CAP PO SCH (07:50)
[2021-07-05] MEDS: Ferrous Sulfate 325 MG TAB PO SCH ×2 (07:50→16:58)
[2021-07-05] MEDS: Docusate 100 MG CAP PO SCH (07:50)
[2021-07-05] MEDS: Simethicone Chewable 80 MG TAB PO SCH ×3 (07:50→20:32)
[2021-07-05] MEDS: Cholecalciferol 1,000 UNITS (25 MCG) TAB PO SCH (07:51)
[2021-07-06] MEDS: Acetaminophen 500 MG TAB PO SCH ×6 (03:16→21:33)
[2021-07-06] MEDS: Simethicone Chewable 80 MG TAB PO SCH ×3 (10:01→21:35)
[2021-07-06] MEDS: Docusate 100 MG CAP PO SCH (10:02)
[2021-07-06] MEDS: Cholecalciferol 1,000 UNITS (25 MCG) TAB PO SCH (10:02)
[2021-07-06] MEDS: Venlafaxine HCl XR 150 MG CAP PO SCH (10:03)
[2021-07-06] MEDS: Sucralfate 1 GM TAB PO SCH ×4 (10:03→21:35)
[2021-07-06] MEDS: Folic Acid 1 MG TAB PO SCH (10:03)
[2021-07-06] MEDS: Ferrous Sulfate 325 MG TAB PO SCH ×2 (10:03→17:27)
[2021-07-06] MEDS: Atorvastatin Calcium 40 MG TAB PO SCH (10:03)
[2021-07-06] MEDS: Senokot S 8.6-50 MG TAB PO SCH (10:04)
[2021-07-06 12:51] VITALS: BMI 20.8
[2021-07-07] MEDS: Acetaminophen 500 MG TAB PO SCH ×6 (01:36→20:01)
[2021-07-07] MEDS ORDERED: Furosemide 40 MG TAB PO SCH (07:30)
[2021-07-07] MEDS ORDERED: Potassium Chloride 20 MEQ TAB PO SCH (08:00)
[2021-07-07] MEDS: Folic Acid 1 MG TAB PO SCH (09:15)
[2021-07-07] MEDS: Cholecalciferol 1,000 UNITS (25 MCG) TAB PO SCH (09:15)
[2021-07-07] MEDS: Atorvastatin Calcium 40 MG TAB PO SCH (09:15)
[2021-07-07] MEDS: Venlafaxine HCl XR 150 MG CAP PO SCH (09:15)
[2021-07-07] MEDS: Sucralfate 1 GM TAB PO SCH ×4 (09:15→20:01)
[2021-07-07] MEDS: Simethicone Chewable 80 MG TAB PO SCH ×3 (09:16→20:01)
[2021-07-07] MEDS: Ferrous Sulfate 325 MG TAB PO SCH ×2 (09:16→16:36)
[2021-07-07] MEDS: Docusate 100 MG CAP PO SCH (10:24)
[2021-07-07] MEDS: Senokot S 8.6-50 MG TAB PO SCH (10:24)
[2021-07-07 20:11] VITALS: BP 143/64; TEMP 97.4
== END 2021-07-07 21:01 | DRG 291 ==
LOC: ERS 08:34 → ERHOLD 12:03 → 2NO 15:15 → CCU 07-03 02:25 → 2NO 07-05 16:05
PROVIDERS: ADMIT Internal Medicine; ATTEND Family Medicine
PROC: 5A2204Z Restoration of Cardiac Rhythm, Single (ICD-10-PCS; principal; 2021-06-28)
PROC: B24BZZ4 Ultrasonography of Heart with Aorta, Transesophageal (ICD-10-PCS; 2021-06-28)
PROC: 3E033XZ Introduction of Vasopressor into Peripheral Vein, Percutaneous Approach (ICD-10-PCS; 2021-07-03)
DX: I13.0 Hypertensive heart and chronic kidney disease with heart failure and stage 1 through stage 4 chronic kidney disease, or unspecified chronic kidney disease (principal); Z20.822 Contact with and (suspected) exposure to COVID-19; Z66 Do not resuscitate; I50.33 Acute on chronic diastolic (congestive) heart failure; J96.21 Acute and chronic respiratory failure with hypoxia; R57.1 Hypovolemic shock; N39.0 Urinary tract infection, site not specified; Q21.1 Atrial septal defect; J98.11 Atelectasis; I96 Gangrene, not elsewhere classified; I24.8 Other forms of acute ischemic heart disease; I48.21 Permanent atrial fibrillation; I08.3 Combined rheumatic disorders of mitral, aortic and tricuspid valves; B96.1 Klebsiella pneumoniae [K. pneumoniae] as the cause of diseases classified elsewhere; B96.20 Unspecified Escherichia coli [E. coli] as the cause of diseases classified elsewhere; B96.89 Other specified bacterial agents as the cause of diseases classified elsewhere; D50.9 Iron deficiency anemia, unspecified; N18.30 Chronic kidney disease, stage 3 unspecified; Z96.659 Presence of unspecified artificial knee joint; E87.6 Hypokalemia; E78.5 Hyperlipidemia, unspecified; I27.20 Pulmonary hypertension, unspecified; R77.8 Other specified abnormalities of plasma proteins; E83.42 Hypomagnesemia; Z79.899 Other long term (current) drug therapy; Z79.82 Long term (current) use of aspirin; Z86.73 Personal history of transient ischemic attack (TIA), and cerebral infarction without residual deficits; Z98.890 Other specified postprocedural states; Z90.710 Acquired absence of both cervix and uterus; Z89.422 Acquired absence of other left toe(s); Z89.421 Acquired absence of other right toe(s); Z99.81 Dependence on supplemental oxygen
CPT/HCPCS: 36415; 71045; 71275; 80048; 80053; 81003; 81015; 82550; 82553; 82607; 82728; 82746; 83540; 83550; 83605; 83690; 83735; 83880; 84443; 84484; 85025; 85379; 87040; 87077; 87086; 87186; 92960; 93005; 93010; 93306; 93312; 96365; 96375; J0696; J0744; J1940; J2704; J3490; J7030; Q9967; U0002; U0003; U0005

== ENCOUNTER 2021-08-10 16:33 | Emergency (ER) | payer MEDICARE ==
[2021-08-10 17:27] LABS: #Eosinphils 0.1 thou/uL (0.0-0.7); #Lymphocytes 1.1 thou/uL (1.20-3.40); #Monocytes 0.7 thou/uL (0.11-0.59); %Basophils 0.2 % (0.0-1.0); %Lymphocytes 15.7 % (21.0-51.0); %Neutrophils 72.1 % (42.0-75.0); Hemoglobin 10.5 g/dL (12.0-16.0); Mean Corpuscular Hemoglobin 28.5 pg (27.0-31.0); Mean Corpuscular Volume 89.1 fL (78.0-98.0); Platelet Count 215 thou/uL (130-400); RBC Distribution Width 14.7 % (11.5-14.5); Red Blood Cell (RBC) Count 3.68 mill/uL (4.20-5.40)
[2021-08-10 17:51] LABS: ALT (SGPT) 11 U/L (8-55); AST (SGOT) 18 U/L (5-34); Albumin 3.6 g/dL (3.4-4.8); Alkaline Phosphatase 90 U/L (40-110); Anion Gap 16 mmol/L (10-20); BUN (Urea Nitrogen) 22 mg/dL (9.8-20.1); Bilirubin, Total 0.5 mg/dL (0.2-1.2); CK (CPK) 19 U/L (29-168); Calc. Creatinine Clearance 0 mL/min (70-130); Calcium 8.9 mg/dL (7.8-10.44); Carbon Dioxide 27 mmol/L (23-31); Chloride 98 mmol/L (98-107); Globulin 3.5 g/dL (2.4-3.5); Glucose 81 mg/dL (83-110); Lipase 13 U/L (8-78); Magnesium 2.1 mg/dL (1.6-2.6); Potassium 4.1 mmol/L (3.5-5.1); Protein, Total 7.1 g/dL (5.8-8.1); Sodium 137 mmol/L (136-145)
[2021-08-10 21:17] LABS: Bilirubin Negative (Negative); Blood, Urine 3+ (Negative); Clarity Clear (Clear); Glucose, Urine (Dipstick) Normal (Negative); Ketone, Urine Negative (Negative); Leukocyte 500 Leu/uL (Negative); Nitrite 2+ (Negative); Protein, Urine (Dipstick) 20 mg/dL (Neg-Trace); Specific Gravity, Urine 1.046 (1.002-1.036); Urobilinogen Normal mg/dL (Less than 2)
[2021-08-10 21:27] LABS: Bacteria/HPF 3+ HPF (None Seen)
[2021-08-10] MEDS ORDERED: cefTRIAXone\\ROCEPHIN 1 GM VIAL ONE (21:43)
== END 2021-08-10 22:57 | disposition home or self-care (01) ==
LOC: ERS 16:33
DX: I11.0 Hypertensive heart disease with heart failure (principal); I50.9 Heart failure, unspecified; N39.0 Urinary tract infection, site not specified; R11.2 Nausea with vomiting, unspecified; J90 Pleural effusion, not elsewhere classified; I48.91 Unspecified atrial fibrillation; I71.4 Abdominal aortic aneurysm, without rupture; Z86.73 Personal history of transient ischemic attack (TIA), and cerebral infarction without residual deficits; Z79.899 Other long term (current) drug therapy
CPT/HCPCS: 36415; 51701; 71045; 71275; 74174; 80053; 81003; 81015; 82550; 83690; 83735; 83880; 84484; 85025; 87086; 93005; 96365; J0696

== ENCOUNTER 2021-11-03 10:27 | Emergency (ER) | payer MEDICARE | END 2021-11-03 19:14 | LOC: ERS 10:27 | DX: R06.00 Dyspnea, unspecified (principal); I10 Essential (primary) hypertension; I48.91 Unspecified atrial fibrillation; Z79.899 Other long term (current) drug therapy | CPT/HCPCS: 99284 ==

== ENCOUNTER 2022-06-07 12:13 | Inpatient (IN) | payer MEDICARE ==
[2022-06-07 13:10] LABS: Bacteria/HPF 4+ HPF (None Seen); Bilirubin Negative (Negative); Blood, Urine Negative (Negative); Clarity Clear (Clear); Glucose, Urine (Dipstick) Normal (Negative); Ketone, Urine Negative (Negative); Leukocyte 75 Leu/uL (Negative); Nitrite Negative (Negative); Protein, Urine (Dipstick) 70 mg/dL (Neg-Trace); RBC/HPF 0-3 HPF (0-3); Specific Gravity, Urine 1.025 (1.002-1.036); Squamous Epithelial 0-3 HPF (0-3); Urobilinogen Normal mg/dL (Less than 2); pH, Urine 5.5 (5.0-9.0)
[2022-06-07 13:21] LABS: #Basophils 0.1 thou/uL (0.0-0.2); #Eosinphils 0.2 thou/uL (0.0-0.7); #Monocytes 0.5 thou/uL (0.11-0.59); #Neutrophils 7.1 thou/uL (1.40-6.50); %Basophils 0.7 % (0.0-1.0); %Eosinophils 1.7 % (0.0-10.0); %Lymphocytes 11.6 % (21.0-51.0); %Monocytes 5.5 % (0.0-10.0); %Neutrophils 80.5 % (42.0-75.0); Hemoglobin 11.5 g/dL (12.0-16.0); Mean Corpuscular HGB CONC 30.8 g/dL (32.0-36.0); Mean Corpuscular Hemoglobin 28.7 pg (27.0-31.0); Mean Corpuscular Volume 93.3 fl (78.0-98.0); Mean Platelet Volume 7.9 fL (7.4-10.4); Platelet Count 237 10x3/uL (130-400); RBC Distribution Width 16.4 % (11.5-14.5); White Blood Cell (WBC) Count 8.8 10x3/uL (4.8-10.8)
[2022-06-07 13:37] LABS: ALT (SGPT) 9 U/L (8-55); AST (SGOT) 16 U/L (5-34); Alkaline Phosphatase 88 U/L (40-110); Anion Gap 12 mmol/L (10-20); BUN (Urea Nitrogen) 17 mg/dL (9.8-20.1); Bilirubin, Total 0.6 mg/dL (0.2-1.2); Calc. Creatinine Clearance 0 mL/min (70-130); Calcium 9.5 mg/dL (7.8-10.44); Carbon Dioxide 22 mmol/L (23-31); Chloride 106 mmol/L (98-107); Estimated GFR 65; Globulin 3.9 g/dL (2.4-3.5); Glucose 99 mg/dL (83-110); Lipase 20 U/L (8-78); Potassium 4.3 mmol/L (3.5-5.1); Protein, Total 6.9 g/dL (5.8-8.1); Sodium 136 mmol/L (136-145)
[2022-06-07] MEDS ORDERED: Ondansetron PF 4 MG/2 ML Vial ONE (13:46)
[2022-06-07] MEDS ORDERED: cefTRIAXone\\ROCEPHIN 1 GM VIAL ONE (13:46)
[2022-06-07] MEDS ORDERED: Calcium Carbonate 500 MG ChewTAB PO PRN (13:54)
[2022-06-07] MEDS ORDERED: Senokot S 8.6-50 MG TAB PO PRN (13:54)
[2022-06-07] MEDS ORDERED: Acetaminophen 325 MG TAB PO PRN (13:54)
[2022-06-07] MEDS ORDERED: hydrALAZINE 10 MG TAB PO PRN (13:58)
[2022-06-07] MEDS ORDERED: Iopamidol-370 76% 500 ML 1 ML ONE (14:42)
[2022-06-07] MEDS: Simethicone Chewable 80 MG TAB PO SCH ×2 (15:00→20:18)
[2022-06-07] MEDS: Heparin 5,000 UNITS/ML VIAL SC SCH ×2 (15:00→20:19)
[2022-06-07] MEDS ORDERED: Bisacodyl 5 MG TAB PO PRN (15:17)
[2022-06-07] MEDS: Sucralfate 1 GM TAB PO SCH ×2 (17:00→20:17)
[2022-06-07 17:10] VITALS: BMI 19.7
[2022-06-07] MEDS: Sodium Chloride 0.9% 1,000 ML IV SCH (18:13)
[2022-06-07] MEDS: QUEtiapine 25 MG TAB PO SCH (20:17)
[2022-06-07] MEDS: Venlafaxine HCl XR 150 MG CAP PO SCH (20:18)
[2022-06-07] MEDS: Ondansetron ODT 4 MG TAB PO PRN (20:34)
[2022-06-08] MEDS: Sodium Chloride 0.9% 1,000 ML IV SCH ×2 (02:14→12:20)
[2022-06-08 07:18] LABS: #Eosinphils 0.3 thou/uL (0.0-0.7); #Lymphocytes 0.5 thou/uL (1.20-3.40); #Monocytes 0.3 thou/uL (0.11-0.59); #Neutrophils 15.2 thou/uL (1.40-6.50); %Basophils 0.1 % (0.0-1.0); %Eosinophils 1.8 % (0.0-10.0); %Lymphocytes 3.3 % (21.0-51.0); %Monocytes 2.1 % (0.0-10.0); %Neutrophils 92.8 % (42.0-75.0); Hemoglobin 10.1 g/dL (12.0-16.0); Mean Corpuscular HGB CONC 30.4 g/dL (32.0-36.0); Mean Corpuscular Hemoglobin 28.7 pg (27.0-31.0); Mean Corpuscular Volume 94.4 fl (78.0-98.0); Platelet Count 177 10x3/uL (130-400); RBC Distribution Width 16.1 % (11.5-14.5); Red Blood Cell (RBC) Count 3.53 mill/uL (4.20-5.40); White Blood Cell (WBC) Count 16.4 10x3/uL (4.8-10.8)
[2022-06-08 07:40] LABS: ALT (SGPT) Less than 7 U/L (8-55); AST (SGOT) 12 U/L (5-34); Albumin 2.6 g/dL (3.4-4.8); Alkaline Phosphatase 70 U/L (40-110); Anion Gap 10 mmol/L (10-20); BUN (Urea Nitrogen) 14 mg/dL (9.8-20.1); Bilirubin, Total 0.5 mg/dL (0.2-1.2); Calc. Creatinine Clearance 44 mL/min (70-130); Calcium 8.4 mg/dL (7.8-10.44); Carbon Dioxide 22 mmol/L (23-31); Chloride 110 mmol/L (98-107); Estimated GFR 74; Globulin 3.2 g/dL (2.4-3.5); Glucose 76 mg/dL (83-110); Potassium 4.2 mmol/L (3.5-5.1); Protein, Total 5.8 g/dL (5.8-8.1); Sodium 138 mmol/L (136-145)
[2022-06-08] MEDS: Simethicone Chewable 80 MG TAB PO SCH ×3 (11:11→22:00)
[2022-06-08] MEDS: Heparin 5,000 UNITS/ML VIAL SC SCH ×3 (11:12→21:59)
[2022-06-08] MEDS: Sucralfate 1 GM TAB PO SCH ×4 (11:12→22:00)
[2022-06-08] MEDS: Amiodarone 200 MG TAB PO SCH (11:12)
[2022-06-08] MEDS: cefTRIAXone\\ROCEPHIN 1 GM in Sodium Chloride 0.9% 100 ML IVPB SCH (15:19)
[2022-06-08] MEDS: Atorvastatin Calcium 40 MG TAB PO SCH (21:58)
[2022-06-08] MEDS: QUEtiapine 25 MG TAB PO SCH (21:59)
[2022-06-08] MEDS: Venlafaxine HCl XR 150 MG CAP PO SCH (22:00)
[2022-06-09 06:22] LABS: #Eosinphils 0.3 thou/uL (0.0-0.7); #Monocytes 0.4 thou/uL (0.11-0.59); #Neutrophils 10.9 thou/uL (1.40-6.50); %Basophils 0.2 % (0.0-1.0); %Eosinophils 2.5 % (0.0-10.0); %Lymphocytes 7.9 % (21.0-51.0); %Monocytes 3.5 % (0.0-10.0); %Neutrophils 85.9 % (42.0-75.0); Hemoglobin 9.4 g/dL (12.0-16.0); Mean Corpuscular Hemoglobin 28.7 pg (27.0-31.0); Mean Corpuscular Volume 95.7 fl (78.0-98.0); Mean Platelet Volume 8.3 fL (7.4-10.4); Platelet Count 158 10x3/uL (130-400); RBC Distribution Width 16.3 % (11.5-14.5); Red Blood Cell (RBC) Count 3.27 mill/uL (4.20-5.40); White Blood Cell (WBC) Count 12.7 10x3/uL (4.8-10.8)
[2022-06-09 06:43] LABS: Anion Gap 12 mmol/L (10-20); BUN (Urea Nitrogen) 14 mg/dL (9.8-20.1); Calc. Creatinine Clearance 47 mL/min (70-130); Calcium 8.4 mg/dL (7.8-10.44); Carbon Dioxide 20 mmol/L (23-31); Chloride 112 mmol/L (98-107); Estimated GFR 80; Glucose 68 mg/dL (83-110); Potassium 3.9 mmol/L (3.5-5.1); Sodium 140 mmol/L (136-145)
[2022-06-09] MEDS: Simethicone Chewable 80 MG TAB PO SCH ×3 (08:56→21:36)
[2022-06-09] MEDS: Heparin 5,000 UNITS/ML VIAL SC SCH ×3 (08:56→21:35)
[2022-06-09] MEDS: Amiodarone 200 MG TAB PO SCH (08:56)
[2022-06-09] MEDS: Sucralfate 1 GM TAB PO SCH ×4 (08:56→21:36)
[2022-06-09] MEDS ORDERED: Ketotifen Fumarate 0.025% Ophth Soln 5 ml Bottle R EYE SCH (13:00)
[2022-06-09] MEDS: cefTRIAXone\\ROCEPHIN 1 GM in Sodium Chloride 0.9% 100 ML IVPB SCH (13:13)
[2022-06-09] MEDS: Ketotifen Fumarate 0.025% Ophth Soln 5 ml Bottle R EYE SCH (21:34)
[2022-06-09] MEDS: Atorvastatin Calcium 40 MG TAB PO SCH (21:35)
[2022-06-09] MEDS: QUEtiapine 25 MG TAB PO SCH (21:36)
[2022-06-09] MEDS: Venlafaxine HCl XR 150 MG CAP PO SCH (21:37)
[2022-06-10 06:40] LABS: #Eosinphils 0.2 thou/uL (0.0-0.7); #Lymphocytes 0.9 thou/uL (1.20-3.40); #Monocytes 0.6 thou/uL (0.11-0.59); #Neutrophils 8.1 thou/uL (1.40-6.50); %Basophils 0.2 % (0.0-1.0); %Eosinophils 2.6 % (0.0-10.0); %Monocytes 5.7 % (0.0-10.0); %Neutrophils 82.5 % (42.0-75.0); Hemoglobin 9.7 g/dL (12.0-16.0); Mean Corpuscular HGB CONC 30.7 g/dL (32.0-36.0); Mean Corpuscular Hemoglobin 29.1 pg (27.0-31.0); Mean Corpuscular Volume 94.9 fl (78.0-98.0); Mean Platelet Volume 8.4 fL (7.4-10.4); Platelet Count 169 10x3/uL (130-400); RBC Distribution Width 16.3 % (11.5-14.5); Red Blood Cell (RBC) Count 3.34 mill/uL (4.20-5.40); White Blood Cell (WBC) Count 9.8 10x3/uL (4.8-10.8)
[2022-06-10 06:54] LABS: Anion Gap 13 mmol/L (10-20); BUN (Urea Nitrogen) 13 mg/dL (9.8-20.1); Calc. Creatinine Clearance 48 mL/min (70-130); Calcium 8.6 mg/dL (7.8-10.44); Carbon Dioxide 19 mmol/L (23-31); Chloride 111 mmol/L (98-107); Estimated GFR 82; Glucose 71 mg/dL (83-110); Potassium 3.8 mmol/L (3.5-5.1); Sodium 139 mmol/L (136-145)
[2022-06-10] MEDS: Amiodarone 200 MG TAB PO SCH (09:36)
[2022-06-10] MEDS: Simethicone Chewable 80 MG TAB PO SCH ×3 (09:36→20:24)
[2022-06-10] MEDS: Sucralfate 1 GM TAB PO SCH ×4 (09:37→20:24)
[2022-06-10] MEDS: Heparin 5,000 UNITS/ML VIAL SC SCH ×3 (09:37→20:24)
[2022-06-10] MEDS: Ketotifen Fumarate 0.025% Ophth Soln 5 ml Bottle R EYE SCH ×2 (09:38→20:25)
[2022-06-10] MEDS: Cefdinir 300 MG CAP PO SCH (20:24)
[2022-06-10] MEDS: Venlafaxine HCl XR 150 MG CAP PO SCH (20:24)
[2022-06-10] MEDS: QUEtiapine 25 MG TAB PO SCH (20:24)
[2022-06-10] MEDS: Atorvastatin Calcium 40 MG TAB PO SCH (20:24)
[2022-06-10] MEDS ORDERED: Cefpodoxime 200 MG TAB PO SCH (21:00)
[2022-06-11 06:05] LABS: #Eosinphils 0.2 thou/uL (0.0-0.7); #Lymphocytes 0.7 thou/uL (1.20-3.40); #Monocytes 0.4 thou/uL (0.11-0.59); #Neutrophils 5.3 thou/uL (1.40-6.50); %Basophils 0.1 % (0.0-1.0); %Eosinophils 3.3 % (0.0-10.0); %Lymphocytes 10.6 % (21.0-51.0); %Monocytes 5.7 % (0.0-10.0); %Neutrophils 80.2 % (42.0-75.0); Mean Corpuscular HGB CONC 30.2 g/dL (32.0-36.0); Mean Corpuscular Hemoglobin 28.7 pg (27.0-31.0); Mean Corpuscular Volume 94.9 fl (78.0-98.0); Mean Platelet Volume 8.1 fL (7.4-10.4); Platelet Count 182 10x3/uL (130-400); RBC Distribution Width 16.5 % (11.5-14.5); Red Blood Cell (RBC) Count 3.84 mill/uL (4.20-5.40); White Blood Cell (WBC) Count 6.6 10x3/uL (4.8-10.8)
[2022-06-11 06:35] LABS: Anion Gap 13 mmol/L (10-20); BUN (Urea Nitrogen) 12 mg/dL (9.8-20.1); Calc. Creatinine Clearance 49 mL/min (70-130); Carbon Dioxide 19 mmol/L (23-31); Chloride 110 mmol/L (98-107); Estimated GFR 83; Glucose 68 mg/dL (83-110); Potassium 3.8 mmol/L (3.5-5.1); Sodium 138 mmol/L (136-145)
[2022-06-11 07:57] VITALS: BP 145/87; TEMP 97.8
[2022-06-11] MEDS: Sucralfate 1 GM TAB PO SCH ×2 (08:57→15:12)
[2022-06-11] MEDS: Amiodarone 200 MG TAB PO SCH (08:57)
[2022-06-11] MEDS: Simethicone Chewable 80 MG TAB PO SCH ×2 (08:57→15:12)
[2022-06-11] MEDS: Cefdinir 300 MG CAP PO SCH (08:57)
[2022-06-11] MEDS: Heparin 5,000 UNITS/ML VIAL SC SCH ×2 (08:57→15:12)
[2022-06-11] MEDS: Ketotifen Fumarate 0.025% Ophth Soln 5 ml Bottle R EYE SCH (08:57)
[2022-06-11] MEDS: Ondansetron ODT 4 MG TAB PO PRN (15:13)
== END 2022-06-11 15:31 | DRG 871 ==
LOC: SUATTDRO 12:13 → ERS 12:13 → T4-B 15:58
PROVIDERS: ADMIT Internal Medicine; ATTEND Internal Medicine
DX: A41.9 Sepsis, unspecified organism (principal); J96.21 Acute and chronic respiratory failure with hypoxia; N39.0 Urinary tract infection, site not specified; I50.32 Chronic diastolic (congestive) heart failure; Z20.822 Contact with and (suspected) exposure to COVID-19; F03.90 Unspecified dementia, unspecified severity, without behavioral disturbance, psychotic disturbance, mood disturbance, and anxiety; I11.0 Hypertensive heart disease with heart failure; E78.5 Hyperlipidemia, unspecified; I48.91 Unspecified atrial fibrillation; I35.0 Nonrheumatic aortic (valve) stenosis; K59.00 Constipation, unspecified; I71.40 Abdominal aortic aneurysm, without rupture, unspecified; F41.9 Anxiety disorder, unspecified; Z99.81 Dependence on supplemental oxygen; Z79.899 Other long term (current) drug therapy; Z86.73 Personal history of transient ischemic attack (TIA), and cerebral infarction without residual deficits
CPT/HCPCS: 36415; 51701; 74177; 80048; 80053; 81003; 81015; 83605; 83690; 85025; 87040; 87077; 87086; 87186; 93005; 94760; 96365; 96375; J0696; J1644; J2405; J3490; J7050; Q0162; Q9967; U0003; U0005

== ENCOUNTER 2022-06-17 10:50 | Inpatient (IN) | payer MEDICARE ==
[~2022-06-17 10:50] MED LIST: Iopamidol-370 76% 500 ML 1 ML ONE
[2022-06-17] MEDS ORDERED: Dexamethasone 4 mg/ml Vial ONE (11:08)
[2022-06-17] MEDS ORDERED: Magnesium 2 GM/50 ML BAG (IN WATER) ONE (11:08)
[2022-06-17] MEDS ORDERED: Ipratropium/Albuterol 3 ML NEB ONE (11:14)
[2022-06-17] MEDS ORDERED: Albuterol 2.5 MG/0.5 ML NEB ONE (11:17)
[2022-06-17 11:29] LABS: Actual Bicarbonate (HCO3a) 27.9 mEq/L (22-28); Analyzer IN Cardio ER; Base Excess (BEa) 3.2 mEq/L (-2.0 to +3.0); CO2 Tension 43.1 mmHg (35.0-45.0); Calcium, Ionized (arterial) 1.26 mmol/L (1.12-1.30); Carboxyhemoglobin (COHb) 0.8 gm% (0.0-3.0); Hemoglobin (Hb) 11.6 g/dL (12.0-16.0); O2 Tension (PaO2), arterial 63.5 mmHg (> 60.0); Potassium - ABG Lab 3.55 mmol/L (3.70-5.30); pH, Arterial 7.43 (7.35-7.45)
[2022-06-17 11:30] LABS: Puncture Site RBA
[2022-06-17] MEDS ORDERED: Furosemide 40 MG/4 ML VIAL ONE (11:44)
[2022-06-17] MEDS ORDERED: Nitroglycerin 2% Ointment 1 INCH/1 GM Packet ONE (11:44)
[2022-06-17 11:51] LABS: #Eosinphils 0.2 thou/uL (0.0-0.7); #Lymphocytes 1.3 thou/uL (1.20-3.40); #Monocytes 0.5 thou/uL (0.11-0.59); %Basophils 0.5 % (0.0-1.0); %Eosinophils 1.7 % (0.0-10.0); %Lymphocytes 12.8 % (21.0-51.0); %Monocytes 5.3 % (0.0-10.0); %Neutrophils 79.8 % (42.0-75.0); Hemoglobin 11.2 g/dL (12.0-16.0); Mean Corpuscular HGB CONC 31.3 g/dL (32.0-36.0); Mean Corpuscular Hemoglobin 28.8 pg (27.0-31.0); Mean Corpuscular Volume 91.8 fl (78.0-98.0); Mean Platelet Volume 8.5 fL (7.4-10.4); Platelet Count 196 10x3/uL (130-400); RBC Distribution Width 16.8 % (11.5-14.5); Red Blood Cell (RBC) Count 3.89 mill/uL (4.20-5.40)
[2022-06-17 12:13] LABS: ALT (SGPT) 81 U/L (8-55); AST (SGOT) 69 U/L (5-34); Albumin 2.8 g/dL (3.4-4.8); Alkaline Phosphatase 120 U/L (40-110); Anion Gap 14 mmol/L (10-20); BUN (Urea Nitrogen) 11 mg/dL (9.8-20.1); Bilirubin, Total 0.6 mg/dL (0.2-1.2); CK (CPK) 32 U/L (29-168); Calc. Creatinine Clearance 0 mL/min (70-130); Calcium 9.3 mg/dL (7.8-10.44); Carbon Dioxide 22 mmol/L (23-31); Chloride 106 mmol/L (98-107); Estimated GFR 79; Globulin 3.6 g/dL (2.4-3.5); Glucose 98 mg/dL (83-110); Lipase 16 U/L (8-78); Potassium 3.8 mmol/L (3.5-5.1); Protein, Total 6.4 g/dL (5.8-8.1); Sodium 138 mmol/L (136-145)
[2022-06-17 12:33] LABS: CKMB 1.9 ng/mL (0-6.6)
[2022-06-17 13:12] LABS: SARS-CoV-2 NAA Rapid Test Not Detected (NotDetected)
[2022-06-17 13:38] LABS: Bilirubin Negative (Negative); Blood, Urine Negative (Negative); Clarity Clear (Clear); Glucose, Urine (Dipstick) Normal (Negative); Ketone, Urine Negative (Negative); Leukocyte Negative Leu/uL (Negative); Nitrite Negative (Negative); Protein, Urine (Dipstick) Negative (Neg-Trace); Specific Gravity, Urine 1.014 (1.002-1.036); Urobilinogen Normal mg/dL (Less than 2)
[2022-06-17] MEDS ORDERED: ALPRAZolam 0.25 MG TAB PO PRN (14:22)
[2022-06-17] MEDS ORDERED: Senokot 8.6 MG TAB PO PRN (14:22)
[2022-06-17] MEDS ORDERED: Polyethylene Glycol 3350 17 GM Packet PO PRN (14:22)
[2022-06-17] MEDS ORDERED: Simethicone Chewable 80 MG TAB PO PRN (14:22)
[2022-06-17] MEDS ORDERED: Ipratropium/Albuterol 3 ML NEB NEB PRN (14:38)
[2022-06-17 16:22] LABS: Troponin I 0.106 ng/mL (< 0.028)
[2022-06-17] MEDS: Sucralfate 1 GM TAB PO SCH ×2 (17:32→21:52)
[2022-06-17 17:40] LABS: Troponin I 0.107 ng/mL (< 0.028)
[2022-06-17] MEDS ORDERED: Furosemide 20 MG/2 ML VIAL SLOW IVP SCH (18:00)
[2022-06-17] MEDS: QUEtiapine 25 MG TAB PO SCH (21:51)
[2022-06-17] MEDS: Melatonin 3 MG TAB PO SCH (21:51)
[2022-06-17] MEDS: Atorvastatin Calcium 40 MG TAB PO SCH (21:51)
[2022-06-17] MEDS: Docusate 100 MG CAP PO SCH (21:52)
[2022-06-18 05:18] LABS: ALT (SGPT) 63 U/L (8-55); AST (SGOT) 38 U/L (5-34); Albumin 2.4 g/dL (3.4-4.8); Alkaline Phosphatase 94 U/L (40-110); Anion Gap 6 mmol/L (10-20); BUN (Urea Nitrogen) 12 mg/dL (9.8-20.1); Bilirubin, Total 0.4 mg/dL (0.2-1.2); Calc. Creatinine Clearance 47 mL/min (70-130); Calcium 8.8 mg/dL (7.8-10.44); Carbon Dioxide 28 mmol/L (23-31); Chloride 105 mmol/L (98-107); Estimated GFR 80; Globulin 3.2 g/dL (2.4-3.5); Glucose 104 mg/dL (83-110); Potassium 3.2 mmol/L (3.5-5.1); Protein, Total 5.6 g/dL (5.8-8.1); Sodium 136 mmol/L (136-145)
[2022-06-18] MEDS ORDERED: Furosemide 20 MG/2 ML VIAL SLOW IVP SCH ×2 (06:00→12:45)
[2022-06-18] MEDS ORDERED: Electrolyte Replacement Protocol 1 EACH FS SCH (07:30)
[2022-06-18] MEDS ORDERED: Potassium Chloride 20 MEQ TAB PO SCH (08:00)
[2022-06-18] MEDS: Docusate 100 MG CAP PO SCH ×2 (08:58→22:16)
[2022-06-18] MEDS: Amiodarone 200 MG TAB PO SCH (08:59)
[2022-06-18] MEDS: Potassium Chloride 20 MEQ TAB PO SCH (08:59)
[2022-06-18] MEDS: Sucralfate 1 GM TAB PO SCH ×4 (08:59→22:17)
[2022-06-18] MEDS: Venlafaxine HCl XR 150 MG CAP PO SCH (09:16)
[2022-06-18] MEDS ORDERED: Sodium Chloride 0.9% 1,000 ML IV SCH (12:00)
[2022-06-18] MEDS ORDERED: Empagliflozin 10 MG TAB PO SCH (12:45)
[2022-06-18] MEDS: Sodium Chloride 0.9% 1,000 ML IV SCH (13:44)
[2022-06-18] MEDS ORDERED: Aspirin Chewable 81 MG TAB PO SCH (17:00)
[2022-06-18 21:20] LABS: Troponin I 0.089 ng/mL (< 0.028)
[2022-06-18] MEDS: QUEtiapine 25 MG TAB PO SCH (22:16)
[2022-06-18] MEDS: Melatonin 3 MG TAB PO SCH (22:16)
[2022-06-18] MEDS: Atorvastatin Calcium 40 MG TAB PO SCH (22:16)
[2022-06-19 05:38] LABS: Troponin I 0.096 ng/mL (< 0.028)
[2022-06-19] MEDS: Furosemide 20 MG/2 ML VIAL SLOW IVP SCH ×2 (06:47→16:02)
[2022-06-19] MEDS: Amiodarone 200 MG TAB PO SCH (08:16)
[2022-06-19] MEDS: Sucralfate 1 GM TAB PO SCH ×4 (08:17→21:16)
[2022-06-19] MEDS: Empagliflozin 10 MG TAB PO SCH (08:17)
[2022-06-19] MEDS: Venlafaxine HCl XR 150 MG CAP PO SCH (08:17)
[2022-06-19] MEDS: Docusate 100 MG CAP PO SCH ×2 (08:17→21:17)
[2022-06-19] MEDS: Potassium Chloride 20 MEQ TAB PO SCH (08:17)
[2022-06-19] MEDS: Sodium Chloride 0.9% 1,000 ML IV SCH (08:18)
[2022-06-19] MEDS ORDERED: Aspirin 81 mg Enteric Coated Tablet PO SCH (09:00)
[2022-06-19] MEDS ORDERED: Potassium Chloride 20 MEQ TAB PO SCH (14:45)
[2022-06-19] MEDS: Melatonin 3 MG TAB PO SCH (21:16)
[2022-06-19] MEDS: QUEtiapine 25 MG TAB PO SCH (21:16)
[2022-06-19] MEDS: Atorvastatin Calcium 40 MG TAB PO SCH (21:17)
[2022-06-20] MEDS: Sodium Chloride 0.9% 1,000 ML IV SCH (01:46)
[2022-06-20] MEDS: Furosemide 20 MG/2 ML VIAL SLOW IVP SCH ×2 (05:24→15:10)
[2022-06-20] MEDS: Potassium Chloride 20 MEQ TAB PO SCH (08:52)
[2022-06-20] MEDS: Docusate 100 MG CAP PO SCH ×2 (08:52→20:47)
[2022-06-20] MEDS: Empagliflozin 10 MG TAB PO SCH (08:52)
[2022-06-20] MEDS: Venlafaxine HCl XR 150 MG CAP PO SCH (08:52)
[2022-06-20] MEDS: Sucralfate 1 GM TAB PO SCH ×4 (08:52→20:47)
[2022-06-20] MEDS: Amiodarone 200 MG TAB PO SCH (08:52)
[2022-06-20 09:28] LABS: Anion Gap 11 mmol/L (10-20); BUN (Urea Nitrogen) 11 mg/dL (9.8-20.1); Calc. Creatinine Clearance 49 mL/min (70-130); Calcium 8.6 mg/dL (7.8-10.44); Carbon Dioxide 33 mmol/L (23-31); Chloride 96 mmol/L (98-107); Estimated GFR 83; Glucose 82 mg/dL (83-110); Magnesium 1.7 mg/dL (1.6-2.6); Potassium 3.1 mmol/L (3.5-5.1); Sodium 137 mmol/L (136-145)
[2022-06-20] MEDS ORDERED: Potassium Bicarbonate/Cit Ac 20 MEQ TAB PO SCH (09:45)
[2022-06-20] MEDS ORDERED: Magnesium 2 GM/50 ML(in water) 2 GM in Premix Bag 1 BAG IVPB SCH (10:00)
[2022-06-20] MEDS ORDERED: FLU VACC QS2022-23(65YR UP)/PF 240 MCG/0.7 ML SYRINGE IM ONE (17:15)
[2022-06-20] MEDS: QUEtiapine 25 MG TAB PO SCH (20:47)
[2022-06-20] MEDS: Melatonin 3 MG TAB PO SCH (20:47)
[2022-06-20] MEDS: Atorvastatin Calcium 40 MG TAB PO SCH (20:47)
[2022-06-21] MEDS: Furosemide 20 MG/2 ML VIAL SLOW IVP SCH ×2 (06:00→13:28)
[2022-06-21 06:41] LABS: BUN (Urea Nitrogen) 11 mg/dL (9.8-20.1); Calc. Creatinine Clearance 53 mL/min (70-130); Calcium 8.4 mg/dL (7.8-10.44); Estimated GFR 84; Glucose 84 mg/dL (83-110); Magnesium 2.1 mg/dL (1.6-2.6)
[2022-06-21 06:50] LABS: Anion Gap 12 mmol/L (10-20); Carbon Dioxide 35 mmol/L (23-31); Chloride 93 mmol/L (98-107); Potassium 3.1 mmol/L (3.5-5.1); Sodium 137 mmol/L (136-145)
[2022-06-21] MEDS: Docusate 100 MG CAP PO SCH ×2 (08:29→20:44)
[2022-06-21] MEDS: Sucralfate 1 GM TAB PO SCH ×4 (08:30→20:43)
[2022-06-21] MEDS: Potassium Chloride 20 MEQ TAB PO SCH (08:30)
[2022-06-21] MEDS: Amiodarone 200 MG TAB PO SCH (08:30)
[2022-06-21] MEDS: Empagliflozin 10 MG TAB PO SCH (08:30)
[2022-06-21] MEDS: Venlafaxine HCl XR 150 MG CAP PO SCH (08:30)
[2022-06-21] MEDS ORDERED: Potassium Chloride 20 MEQ TAB PO SCH (09:00)
[2022-06-21 14:16] VITALS: BMI 22.0
[2022-06-21] MEDS: Atorvastatin Calcium 40 MG TAB PO SCH (20:43)
[2022-06-21] MEDS: Melatonin 3 MG TAB PO SCH (20:43)
[2022-06-21] MEDS: QUEtiapine 25 MG TAB PO SCH (20:44)
[2022-06-21] MEDS: Acetaminophen 325 MG TAB PO PRN (20:44)
[2022-06-22] MEDS: Furosemide 20 MG/2 ML VIAL SLOW IVP SCH ×2 (05:15→14:02)
[2022-06-22 07:00] LABS: Hemoglobin 9.6 g/dL (12.0-16.0); Mean Corpuscular HGB CONC 31.3 g/dL (32.0-36.0); Mean Corpuscular Volume 92.7 fl (78.0-98.0); Platelet Count 156 10x3/uL (130-400); RBC Distribution Width 16.3 % (11.5-14.5); Red Blood Cell (RBC) Count 3.33 mill/uL (4.20-5.40)
[2022-06-22 07:15] LABS: BUN (Urea Nitrogen) 12 mg/dL (9.8-20.1); Calc. Creatinine Clearance 49 mL/min (70-130); Calcium 8.4 mg/dL (7.8-10.44); Estimated GFR 84; Glucose 81 mg/dL (83-110)
[2022-06-22 07:24] LABS: Anion Gap 14 mmol/L (10-20); Carbon Dioxide 35 mmol/L (23-31); Chloride 91 mmol/L (98-107); Potassium 3.2 mmol/L (3.5-5.1); Sodium 137 mmol/L (136-145)
[2022-06-22] MEDS: Docusate 100 MG CAP PO SCH ×2 (08:42→20:48)
[2022-06-22] MEDS: Empagliflozin 10 MG TAB PO SCH (08:42)
[2022-06-22] MEDS: Potassium Chloride 20 MEQ TAB PO SCH ×2 (08:42→17:34)
[2022-06-22] MEDS: Amiodarone 200 MG TAB PO SCH (08:42)
[2022-06-22] MEDS: Venlafaxine HCl XR 150 MG CAP PO SCH (08:42)
[2022-06-22] MEDS: Sucralfate 1 GM TAB PO SCH ×4 (08:42→20:49)
[2022-06-22] MEDS ORDERED: Potassium Bicarbonate/Cit Ac 20 MEQ TAB PO SCH (09:00)
[2022-06-22] MEDS: Acetaminophen 325 MG TAB PO PRN (19:36)
[2022-06-22] MEDS: Melatonin 3 MG TAB PO SCH (20:47)
[2022-06-22] MEDS: Atorvastatin Calcium 40 MG TAB PO SCH (20:48)
[2022-06-22] MEDS: QUEtiapine 25 MG TAB PO SCH (20:48)
[2022-06-23] MEDS: Furosemide 20 MG/2 ML VIAL SLOW IVP SCH (06:10)
[2022-06-23 07:24] LABS: BUN (Urea Nitrogen) 14 mg/dL (9.8-20.1); Calc. Creatinine Clearance 46 mL/min (70-130); Calcium 8.2 mg/dL (7.8-10.44); Estimated GFR 80; Glucose 85 mg/dL (83-110); Magnesium 1.9 mg/dL (1.6-2.6)
[2022-06-23 07:33] LABS: Anion Gap 12 mmol/L (10-20); Carbon Dioxide 37 mmol/L (23-31); Chloride 91 mmol/L (98-107); Potassium 3.6 mmol/L (3.5-5.1); Sodium 136 mmol/L (136-145)
[2022-06-23] MEDS: Empagliflozin 10 MG TAB PO SCH (08:32)
[2022-06-23] MEDS: Potassium Chloride 20 MEQ TAB PO SCH ×2 (08:32→17:28)
[2022-06-23] MEDS: Venlafaxine HCl XR 150 MG CAP PO SCH (08:32)
[2022-06-23] MEDS: Sucralfate 1 GM TAB PO SCH ×4 (08:32→20:55)
[2022-06-23] MEDS: Amiodarone 200 MG TAB PO SCH (08:32)
[2022-06-23] MEDS: Docusate 100 MG CAP PO SCH ×2 (08:32→20:55)
[2022-06-23] MEDS: QUEtiapine 25 MG TAB PO SCH (20:55)
[2022-06-23] MEDS: Atorvastatin Calcium 40 MG TAB PO SCH (20:55)
[2022-06-23] MEDS: Melatonin 3 MG TAB PO SCH (20:56)
[2022-06-24] MEDS: Furosemide 20 MG/2 ML VIAL SLOW IVP SCH (06:31)
[2022-06-24] MEDS: Potassium Chloride 20 MEQ TAB PO SCH ×2 (08:23→17:35)
[2022-06-24] MEDS: Amiodarone 200 MG TAB PO SCH (08:23)
[2022-06-24] MEDS: Docusate 100 MG CAP PO SCH ×2 (08:23→20:09)
[2022-06-24] MEDS: Venlafaxine HCl XR 150 MG CAP PO SCH (08:23)
[2022-06-24] MEDS: Empagliflozin 10 MG TAB PO SCH (08:23)
[2022-06-24] MEDS: Sucralfate 1 GM TAB PO SCH ×4 (08:24→20:09)
[2022-06-24] MEDS: Melatonin 3 MG TAB PO SCH (20:09)
[2022-06-24] MEDS: Atorvastatin Calcium 40 MG TAB PO SCH (20:09)
[2022-06-24] MEDS: QUEtiapine 25 MG TAB PO SCH (20:09)
[2022-06-25] MEDS: Furosemide 20 MG/2 ML VIAL SLOW IVP SCH (05:16)
[2022-06-25 08:01] VITALS: BP 132/70; TEMP 98
[2022-06-25] MEDS: Amiodarone 200 MG TAB PO SCH (08:27)
[2022-06-25] MEDS: Docusate 100 MG CAP PO SCH (08:27)
[2022-06-25] MEDS: Potassium Chloride 20 MEQ TAB PO SCH ×2 (08:27→16:30)
[2022-06-25] MEDS: Venlafaxine HCl XR 150 MG CAP PO SCH (08:27)
[2022-06-25] MEDS: Sucralfate 1 GM TAB PO SCH ×3 (08:27→16:30)
[2022-06-25] MEDS: Empagliflozin 10 MG TAB PO SCH (08:28)
== END 2022-06-25 17:38 | disposition home health service (06) | DRG 280 ==
LOC: ERS 10:50 → 2NO 15:15 → T4-B 06-19 22:21
PROVIDERS: ADMIT Internal Medicine; ATTEND Internal Medicine
DX: I11.0 Hypertensive heart disease with heart failure (principal); Z20.822 Contact with and (suspected) exposure to COVID-19; Z66 Do not resuscitate; I50.33 Acute on chronic diastolic (congestive) heart failure; I21.A1 Myocardial infarction type 2; J96.21 Acute and chronic respiratory failure with hypoxia; R64 Cachexia; Z68.1 Body mass index [BMI] 19.9 or less, adult; F03.90 Unspecified dementia, unspecified severity, without behavioral disturbance, psychotic disturbance, mood disturbance, and anxiety; I48.0 Paroxysmal atrial fibrillation; I71.43 Infrarenal abdominal aortic aneurysm, without rupture; L89.152 Pressure ulcer of sacral region, stage 2; K21.9 Gastro-esophageal reflux disease without esophagitis; E78.5 Hyperlipidemia, unspecified; K59.00 Constipation, unspecified; I27.20 Pulmonary hypertension, unspecified; I08.3 Combined rheumatic disorders of mitral, aortic and tricuspid valves; E87.6 Hypokalemia; Z74.01 Bed confinement status; Z89.422 Acquired absence of other left toe(s); Z89.421 Acquired absence of other right toe(s); Z90.710 Acquired absence of both cervix and uterus; Z79.899 Other long term (current) drug therapy
CPT/HCPCS: 36415; 36600; 71045; 71275; 74022; 80048; 80053; 81003; 82550; 82553; 82805; 83605; 83690; 83735; 83880; 84443; 84484; 85025; 85027; 87040; 87811; 93005; 93010; 93306; 94644; 97139; J1100; J1940; J3475; J7050; J7611; J7620; Q9967

== ENCOUNTER 2022-08-01 14:53 | Inpatient (IN) | payer MEDICARE ==
[~2022-08-01 14:53] MED LIST changes: -Iopamidol-370 76% 500 ML 1 ML ONE; +Iopamidol-370 76% 500 ML MDV (1 ML CHARGE) ONE
[2022-08-01] MEDS ORDERED: cefTRIAXone (ROCEPHIN) 2 GM VIAL ONE (15:32)
[2022-08-01 15:47] LABS: #Basophils 0.1 thou/uL (0.0-0.2); #Eosinphils 0.2 thou/uL (0.0-0.7); #Lymphocytes 2.6 thou/uL (1.20-3.40); #Monocytes 0.7 thou/uL (0.11-0.59); #Neutrophils 4.6 thou/uL (1.40-6.50); %Basophils 0.8 % (0.0-1.0); %Monocytes 8.4 % (0.0-10.0); %Neutrophils 56.9 % (42.0-75.0); Hemoglobin 3.4 g/dL (12.0-16.0); Mean Corpuscular HGB CONC 31.7 g/dL (32.0-36.0); Mean Corpuscular Hemoglobin 28.7 pg (27.0-31.0); Mean Corpuscular Volume 90.5 fl (78.0-98.0); Mean Platelet Volume 7.4 fL (7.4-10.4); Platelet Count 260 10x3/uL (130-400); Red Blood Cell (RBC) Count 1.19 mill/uL (4.20-5.40); White Blood Cell (WBC) Count 8.1 10x3/uL (4.8-10.8)
[2022-08-01 15:48] LABS: SARS-CoV-2 NAA Rapid Test Not Detected (NotDetected)
[2022-08-01 15:59] LABS: INR-International Normal Ratio 1.1; Prothrombin Time 14.5 sec (12.0-14.7)
[2022-08-01 16:02] LABS: Bilirubin Negative (Negative); Blood, Urine Negative (Negative); Clarity Clear (Clear); Glucose, Urine (Dipstick) Normal (Negative); Ketone, Urine Negative (Negative); Leukocyte Negative Leu/uL (Negative); Nitrite Negative (Negative); Protein, Urine (Dipstick) 10 mg/dL (Neg-Trace); Specific Gravity, Urine 1.015 (1.002-1.036); Urobilinogen Normal mg/dL (Less than 2); pH, Urine 6.5 (5.0-9.0)
[2022-08-01 16:06] LABS: PTT 28.8 sec (22.9-36.1)
[2022-08-01 18:15] LABS: Albumin 2.5 g/dL (3.4-4.8)
[2022-08-01 18:16] LABS: Calcium 7.7 mg/dL (7.8-10.44); Chloride 108 mmol/L (98-107); Potassium 4.7 mmol/L (3.5-5.1); Sodium 139 mmol/L (136-145)
[2022-08-01 18:17] LABS: Globulin 2.8 g/dL (2.4-3.5); Glucose 99 mg/dL (83-110); Protein, Total 5.3 g/dL (5.8-8.1)
[2022-08-01 18:19] LABS: Anion Gap 13 mmol/L (10-20); Carbon Dioxide 23 mmol/L (23-31)
[2022-08-01 18:20] LABS: Alkaline Phosphatase 73 U/L (40-110); Calc. Creatinine Clearance 0 mL/min (70-130)
[2022-08-01 18:21] LABS: BUN (Urea Nitrogen) 21 mg/dL (9.8-20.1); Estimated GFR 70
[2022-08-01 18:22] LABS: AST (SGOT) 13 U/L (5-34)
[2022-08-01 18:23] LABS: ALT (SGPT) 9 U/L (8-55)
[2022-08-01 18:24] LABS: Bilirubin, Total 0.2 mg/dL (0.2-1.2)
[2022-08-01] MEDS ORDERED: Ketotifen Fumarate 0.025% Ophth Soln 5 ml Bottle EA EYE PRN (20:42)
[2022-08-01] MEDS ORDERED: Polyethylene Glycol 3350 17 GM Packet PO PRN (20:42)
[2022-08-01] MEDS ORDERED: Ondansetron ODT 4 MG TAB PO PRN (20:42)
[2022-08-01] MEDS ORDERED: ALPRAZolam 0.25 MG TAB PO PRN (20:42)
[2022-08-01] MEDS ORDERED: Pantoprazole 40 MG VIAL IVP SCH (20:45)
[2022-08-01] MEDS ORDERED: Dextrose 5 % And 0.9 % NaCl 1,000 ML IV SCH (20:45)
[2022-08-01] MEDS: Sucralfate 1 GM TAB PO SCH (22:53)
[2022-08-01] MEDS: Acetaminophen 500 MG TAB PO SCH (22:53)
[2022-08-01] MEDS: Simethicone Chewable 80 MG TAB PO SCH (22:53)
[2022-08-01 23:29] LABS: Hemoglobin 6.5 g/dL (12.0-16.0)
[2022-08-01 23:44] LABS: Lactic Acid 2.2 mmol/L (0.5-2.2)
[2022-08-02 03:48] VITALS: BMI 18.5
[2022-08-02] MEDS ORDERED: Piperacillin/Tazobactam 3.375 GM in Sodium Chloride 0.9% 100 ML IVPB SCH ×2 (04:00→06:00)
[2022-08-02] MEDS: Acetaminophen 500 MG TAB PO SCH ×6 (05:12→18:07)
[2022-08-02 05:32] LABS: #Eosinphils 0.1 thou/uL (0.0-0.7); #Lymphocytes 0.4 thou/uL (1.20-3.40); #Monocytes 0.3 thou/uL (0.11-0.59); #Neutrophils 10.5 thou/uL (1.40-6.50); %Basophils 0.3 % (0.0-1.0); %Eosinophils 0.7 % (0.0-10.0); %Lymphocytes 3.8 % (21.0-51.0); %Monocytes 2.9 % (0.0-10.0); %Neutrophils 92.3 % (42.0-75.0); Hemoglobin 7.6 g/dL (12.0-16.0); Mean Corpuscular HGB CONC 33.3 g/dL (32.0-36.0); Mean Corpuscular Hemoglobin 30.6 pg (27.0-31.0); Mean Corpuscular Volume 91.7 fl (78.0-98.0); Platelet Count 211 10x3/uL (130-400); Red Blood Cell (RBC) Count 2.49 mill/uL (4.20-5.40); White Blood Cell (WBC) Count 11.4 10x3/uL (4.8-10.8)
[2022-08-02 06:02] LABS: ALT (SGPT) 9 U/L (8-55); AST (SGOT) 15 U/L (5-34); Albumin 2.5 g/dL (3.4-4.8); Alkaline Phosphatase 63 U/L (40-110); Anion Gap 12 mmol/L (10-20); BUN (Urea Nitrogen) 23 mg/dL (9.8-20.1); Bilirubin, Total 1.1 mg/dL (0.2-1.2); Calc. Creatinine Clearance 34 mL/min (70-130); Calcium 7.6 mg/dL (7.8-10.44); Carbon Dioxide 20 mmol/L (23-31); Chloride 110 mmol/L (98-107); Estimated GFR 69; Globulin 2.7 g/dL (2.4-3.5); Glucose 119 mg/dL (83-110); Potassium 4.4 mmol/L (3.5-5.1); Protein, Total 5.2 g/dL (5.8-8.1); Sodium 138 mmol/L (136-145)
[2022-08-02] MEDS: Sucralfate 1 GM TAB PO SCH ×2 (07:40→10:42)
[2022-08-02] MEDS: Simethicone Chewable 80 MG TAB PO SCH ×2 (07:42→15:32)
[2022-08-02] MEDS: Potassium Chloride 20 MEQ TAB PO SCH (07:53)
[2022-08-02] MEDS: Bisacodyl 10 MG SUPP PR SCH (07:53)
[2022-08-02] MEDS: Folic Acid 1 MG TAB PO SCH (07:54)
[2022-08-02] MEDS: Senokot S 8.6-50 MG TAB PO SCH (07:54)
[2022-08-02] MEDS ORDERED: Ferrous Sulfate 325 MG TAB PO SCH (08:00)
[2022-08-02] MEDS: Piperacillin/Tazobactam 3.375 GM in Sodium Chloride 0.9% 100 ML IVPB SCH ×2 (08:51→18:07)
[2022-08-02] MEDS: Amiodarone 200 MG TAB PO SCH (08:52)
[2022-08-02] MEDS: Pantoprazole 40 MG VIAL IVP SCH (08:56)
[2022-08-02] MEDS ORDERED: Famotidine 20 MG TAB PO SCH (09:00)
[2022-08-02 12:22] LABS: Hemoglobin 8.2 g/dL (12.0-16.0); Platelet Count 243 10x3/uL (130-400)
[2022-08-02] MEDS ORDERED: Lidocaine 1% PF 5 ML VIAL ONE (12:50)
[2022-08-02] MEDS ORDERED: PROPOFOL 200 MG/20 ML VIAL ONE (12:50)
[2022-08-02] MEDS ORDERED: Ondansetron HCl/PF 4 MG/2 ML Vial IVP PRN (13:14)
[2022-08-02] MEDS ORDERED: GoLYTELY 4,000 ml Bottle PO SCH (19:00)
[2022-08-02 19:12] LABS: Hemoglobin 8.4 g/dL (12.0-16.0)
[2022-08-03] MEDS: QUEtiapine 25 MG TAB PO SCH ×2 (00:16→23:06)
[2022-08-03] MEDS: Piperacillin/Tazobactam 3.375 GM in Sodium Chloride 0.9% 100 ML IVPB SCH ×3 (00:16→18:01)
[2022-08-03] MEDS: Atorvastatin Calcium 40 MG TAB PO SCH ×2 (00:17→23:07)
[2022-08-03] MEDS: Acetaminophen 500 MG TAB PO SCH ×8 (00:17→23:07)
[2022-08-03] MEDS: Pantoprazole 40 MG VIAL IVP SCH ×3 (00:18→23:06)
[2022-08-03] MEDS: Simethicone Chewable 80 MG TAB PO SCH ×4 (00:18→23:07)
[2022-08-03 07:28] LABS: #Eosinphils 0.5 thou/uL (0.0-0.7); #Monocytes 0.5 thou/uL (0.11-0.59); #Neutrophils 7.9 thou/uL (1.40-6.50); %Basophils 0.3 % (0.0-1.0); %Eosinophils 4.7 % (0.0-10.0); %Lymphocytes 9.9 % (21.0-51.0); %Monocytes 4.8 % (0.0-10.0); %Neutrophils 80.3 % (42.0-75.0); Hemoglobin 6.4 g/dL (12.0-16.0); Mean Corpuscular HGB CONC 31.8 g/dL (32.0-36.0); Mean Corpuscular Hemoglobin 29.4 pg (27.0-31.0); Mean Corpuscular Volume 92.4 fl (78.0-98.0); Mean Platelet Volume 7.5 fL (7.4-10.4); Platelet Count 213 10x3/uL (130-400); RBC Distribution Width 14.6 % (11.5-14.5); Red Blood Cell (RBC) Count 2.18 mill/uL (4.20-5.40); White Blood Cell (WBC) Count 9.8 10x3/uL (4.8-10.8)
[2022-08-03 07:53] LABS: ALT (SGPT) Less than 7 U/L (8-55); AST (SGOT) 10 U/L (5-34); Albumin 2.3 g/dL (3.4-4.8); Alkaline Phosphatase 47 U/L (40-110); Anion Gap 11 mmol/L (10-20); BUN (Urea Nitrogen) 25 mg/dL (9.8-20.1); Bilirubin, Total 0.7 mg/dL (0.2-1.2); Calc. Creatinine Clearance 37 mL/min (70-130); Calcium 7.5 mg/dL (7.8-10.44); Carbon Dioxide 22 mmol/L (23-31); Chloride 113 mmol/L (98-107); Estimated GFR 72; Globulin 2.5 g/dL (2.4-3.5); Glucose 81 mg/dL (83-110); Protein, Total 4.8 g/dL (5.8-8.1); Sodium 143 mmol/L (136-145)
[2022-08-03] MEDS: Bisacodyl 10 MG SUPP PR SCH (09:51)
[2022-08-03] MEDS: Folic Acid 1 MG TAB PO SCH (09:52)
[2022-08-03] MEDS: Potassium Chloride 20 MEQ TAB PO SCH (09:52)
[2022-08-03] MEDS: Senokot S 8.6-50 MG TAB PO SCH (09:52)
[2022-08-03] MEDS: Amiodarone 200 MG TAB PO SCH (09:54)
[2022-08-03] MEDS: Potassium Chloride 20 MEQ in Premix Bag 1 BAG IVPB SCH ×2 (18:01→23:08)
[2022-08-03] MEDS: Dextrose 5 %-0.45 % NaCl 1,000 ML IV SCH ×2 (18:02→19:27)
[2022-08-03] MEDS ORDERED: GoLYTELY 4,000 ml Bottle PO SCH (19:45)
[2022-08-03 21:40] LABS: Hemoglobin 9.4 g/dL (12.0-16.0); Platelet Count 201 10x3/uL (130-400)
[2022-08-04] MEDS: Acetaminophen 500 MG TAB PO SCH ×6 (01:07→20:28)
[2022-08-04] MEDS: Piperacillin/Tazobactam 3.375 GM in Sodium Chloride 0.9% 100 ML IVPB SCH ×3 (01:19→16:20)
[2022-08-04] MEDS ORDERED: Artificial Tear Sol 15 ML BOT EA EYE PRN (05:01)
[2022-08-04 07:02] LABS: #Eosinphils 0.4 thou/uL (0.0-0.7); #Lymphocytes 0.8 thou/uL (1.20-3.40); #Monocytes 0.6 thou/uL (0.11-0.59); #Neutrophils 7.2 thou/uL (1.40-6.50); %Basophils 0.4 % (0.0-1.0); %Eosinophils 4.9 % (0.0-10.0); %Lymphocytes 8.6 % (21.0-51.0); %Monocytes 6.5 % (0.0-10.0); %Neutrophils 79.6 % (42.0-75.0); Hemoglobin 8.5 g/dL (12.0-16.0); Mean Corpuscular HGB CONC 33.5 g/dL (32.0-36.0); Mean Corpuscular Hemoglobin 30.5 pg (27.0-31.0); Mean Corpuscular Volume 90.9 fl (78.0-98.0); Platelet Count 174 10x3/uL (130-400); RBC Distribution Width 14.7 % (11.5-14.5); Red Blood Cell (RBC) Count 2.79 mill/uL (4.20-5.40)
[2022-08-04 07:22] LABS: Anion Gap 13 mmol/L (10-20); BUN (Urea Nitrogen) 22 mg/dL (9.8-20.1); Calc. Creatinine Clearance 34 mL/min (70-130); Calcium 7.8 mg/dL (7.8-10.44); Carbon Dioxide 21 mmol/L (23-31); Chloride 112 mmol/L (98-107); Estimated GFR 68; Glucose 92 mg/dL (83-110); Potassium 2.7 mmol/L (3.5-5.1); Sodium 143 mmol/L (136-145)
[2022-08-04] MEDS: Bisacodyl 10 MG SUPP PR SCH (08:05)
[2022-08-04] MEDS: Pantoprazole 40 MG VIAL IVP SCH ×2 (08:05→20:28)
[2022-08-04] MEDS: Senokot S 8.6-50 MG TAB PO SCH (08:05)
[2022-08-04] MEDS: Amiodarone 200 MG TAB PO SCH (08:05)
[2022-08-04] MEDS: Simethicone Chewable 80 MG TAB PO SCH ×3 (08:05→20:29)
[2022-08-04] MEDS: Folic Acid 1 MG TAB PO SCH (08:05)
[2022-08-04] MEDS ORDERED: Ketamine 50 MG/ML (10ML VIAL) ONE (10:13)
[2022-08-04] MEDS ORDERED: PROPOFOL 200 MG/20 ML VIAL ONE (10:20)
[2022-08-04] MEDS ORDERED: Ondansetron HCl/PF 4 MG/2 ML Vial IVP PRN (10:33)
[2022-08-04] MEDS ORDERED: Promethazine HCl 25 MG/ML VIAL IM PRN (10:33)
[2022-08-04] MEDS: Dextrose 5 %-0.45 % NaCl 1,000 ML IV SCH ×2 (11:44→20:35)
[2022-08-04] MEDS: Atorvastatin Calcium 40 MG TAB PO SCH (20:28)
[2022-08-04] MEDS: QUEtiapine 25 MG TAB PO SCH (20:28)
[2022-08-05] MEDS: Acetaminophen 500 MG TAB PO SCH ×6 (00:19→20:13)
[2022-08-05] MEDS: Piperacillin/Tazobactam 3.375 GM in Sodium Chloride 0.9% 100 ML IVPB SCH ×3 (00:19→16:39)
[2022-08-05 05:39] LABS: #Basophils 0.1 thou/uL (0.0-0.2); #Eosinphils 0.6 thou/uL (0.0-0.7); #Lymphocytes 0.9 thou/uL (1.20-3.40); #Monocytes 0.4 thou/uL (0.11-0.59); #Neutrophils 5.1 thou/uL (1.40-6.50); %Basophils 0.8 % (0.0-1.0); %Lymphocytes 13.1 % (21.0-51.0); %Neutrophils 72.1 % (42.0-75.0); Hemoglobin 8.4 g/dL (12.0-16.0); Mean Corpuscular HGB CONC 34.2 g/dL (32.0-36.0); Mean Corpuscular Hemoglobin 31.9 pg (27.0-31.0); Mean Corpuscular Volume 93.2 fl (78.0-98.0); Mean Platelet Volume 8.2 fL (7.4-10.4); Platelet Count 161 10x3/uL (130-400); RBC Distribution Width 15.4 % (11.5-14.5); Red Blood Cell (RBC) Count 2.62 mill/uL (4.20-5.40)
[2022-08-05 05:42] LABS: Reticulocyte Count 4.4 % (0.5-1.5)
[2022-08-05 05:59] LABS: ALT (SGPT) 8 U/L (8-55); AST (SGOT) 11 U/L (5-34); Albumin 2.3 g/dL (3.4-4.8); Alkaline Phosphatase 54 U/L (40-110); Anion Gap 10 mmol/L (10-20); BUN (Urea Nitrogen) 20 mg/dL (9.8-20.1); Bilirubin, Total 0.7 mg/dL (0.2-1.2); Calc. Creatinine Clearance 34 mL/min (70-130); Calcium 7.9 mg/dL (7.8-10.44); Carbon Dioxide 21 mmol/L (23-31); Chloride 112 mmol/L (98-107); Estimated GFR 68; Globulin 2.7 g/dL (2.4-3.5); Glucose 79 mg/dL (83-110); Iron 38 ug/dL (50-170); Iron Binding Capacity, Total 188 mcg/dL (265-497); Magnesium 1.7 mg/dL (1.6-2.6); Sodium 141 mmol/L (136-145)
[2022-08-05 06:05] LABS: Potassium 2.4 mmol/L (3.5-5.1)
[2022-08-05] MEDS ORDERED: Electrolyte Replacement Protocol 1 EACH FS SCH (06:28)
[2022-08-05] MEDS ORDERED: Magnesium 2 GM/50 ML(in water) 2 GM in Premix Bag 1 BAG IVPB SCH (08:00)
[2022-08-05] MEDS: Simethicone Chewable 80 MG TAB PO SCH ×3 (08:17→20:14)
[2022-08-05] MEDS: Pantoprazole 40 MG VIAL IVP SCH ×2 (08:17→20:14)
[2022-08-05] MEDS: Potassium Chloride 40 MEQ in Sodium Chloride 0.9% 500 ML IVPB SCH ×2 (08:17→13:09)
[2022-08-05] MEDS: Senokot S 8.6-50 MG TAB PO SCH (08:17)
[2022-08-05] MEDS: Amiodarone 200 MG TAB PO SCH (08:17)
[2022-08-05] MEDS: Bisacodyl 10 MG SUPP PR SCH (08:18)
[2022-08-05] MEDS: Folic Acid 1 MG TAB PO SCH (08:18)
[2022-08-05 13:26] LABS: Anion Gap 12 mmol/L (10-20); BUN (Urea Nitrogen) 20 mg/dL (9.8-20.1); Calc. Creatinine Clearance 36 mL/min (70-130); Carbon Dioxide 20 mmol/L (23-31); Chloride 113 mmol/L (98-107); Estimated GFR 70; Glucose 94 mg/dL (83-110); Potassium 3.4 mmol/L (3.5-5.1); Sodium 142 mmol/L (136-145)
[2022-08-05] MEDS: Dextrose 5 %-0.45 % NaCl 1,000 ML IV SCH (16:40)
[2022-08-05 20:00] LABS: Anion Gap 13 mmol/L (10-20); BUN (Urea Nitrogen) 20 mg/dL (9.8-20.1); Calc. Creatinine Clearance 34 mL/min (70-130); Calcium 8.3 mg/dL (7.8-10.44); Carbon Dioxide 19 mmol/L (23-31); Chloride 112 mmol/L (98-107); Estimated GFR 67; Glucose 117 mg/dL (83-110); Potassium 3.5 mmol/L (3.5-5.1); Sodium 140 mmol/L (136-145)
[2022-08-05] MEDS: Atorvastatin Calcium 40 MG TAB PO SCH (20:13)
[2022-08-05] MEDS: QUEtiapine 25 MG TAB PO SCH (20:14)
[2022-08-06] MEDS: Piperacillin/Tazobactam 3.375 GM in Sodium Chloride 0.9% 100 ML IVPB SCH ×2 (01:28→08:08)
[2022-08-06] MEDS: Acetaminophen 500 MG TAB PO SCH ×7 (01:28→23:46)
[2022-08-06] MEDS: Folic Acid 1 MG TAB PO SCH (08:09)
[2022-08-06] MEDS: Bisacodyl 10 MG SUPP PR SCH (08:09)
[2022-08-06] MEDS: Amiodarone 200 MG TAB PO SCH (08:09)
[2022-08-06] MEDS: Pantoprazole 40 MG VIAL IVP SCH ×2 (08:09→21:10)
[2022-08-06] MEDS: Senokot S 8.6-50 MG TAB PO SCH (08:09)
[2022-08-06] MEDS: Simethicone Chewable 80 MG TAB PO SCH ×3 (08:09→21:10)
[2022-08-06 08:27] LABS: #Eosinphils 0.5 thou/uL (0.0-0.7); #Lymphocytes 1.4 thou/uL (1.20-3.40); #Monocytes 0.5 thou/uL (0.11-0.59); #Neutrophils 5.8 thou/uL (1.40-6.50); %Basophils 0.4 % (0.0-1.0); %Eosinophils 6.3 % (0.0-10.0); %Lymphocytes 16.8 % (21.0-51.0); %Monocytes 6.3 % (0.0-10.0); %Neutrophils 70.2 % (42.0-75.0); Hemoglobin 8.8 g/dL (12.0-16.0); Mean Corpuscular HGB CONC 31.8 g/dL (32.0-36.0); Mean Corpuscular Hemoglobin 30.5 pg (27.0-31.0); Mean Platelet Volume 8.1 fL (7.4-10.4); Platelet Count 185 10x3/uL (130-400); RBC Distribution Width 16.9 % (11.5-14.5); Red Blood Cell (RBC) Count 2.89 mill/uL (4.20-5.40); White Blood Cell (WBC) Count 8.2 10x3/uL (4.8-10.8)
[2022-08-06 08:50] LABS: Anion Gap 12 mmol/L (10-20); BUN (Urea Nitrogen) 18 mg/dL (9.8-20.1); Calc. Creatinine Clearance 37 mL/min (70-130); Calcium 8.2 mg/dL (7.8-10.44); Carbon Dioxide 20 mmol/L (23-31); Chloride 113 mmol/L (98-107); Estimated GFR 73; Glucose 81 mg/dL (83-110); Magnesium 1.8 mg/dL (1.6-2.6); Potassium 3.6 mmol/L (3.5-5.1); Sodium 141 mmol/L (136-145)
[2022-08-06] MEDS ORDERED: Magnesium 2 GM/50 ML(in water) 2 GM in Premix Bag 1 BAG IVPB SCH (09:15)
[2022-08-06] MEDS: QUEtiapine 25 MG TAB PO SCH (21:10)
[2022-08-06] MEDS: Atorvastatin Calcium 40 MG TAB PO SCH (21:10)
[2022-08-06] MEDS: Amoxicillin/Potassium Clav 500 MG TAB PO SCH (21:10)
[2022-08-07] MEDS: Acetaminophen 500 MG TAB PO SCH ×2 (05:18→10:11)
[2022-08-07 07:10] LABS: Hemoglobin 8.5 g/dL (12.0-16.0); Mean Corpuscular HGB CONC 30.9 g/dL (32.0-36.0); Mean Corpuscular Hemoglobin 30.4 pg (27.0-31.0); Mean Corpuscular Volume 98.2 fl (78.0-98.0); Mean Platelet Volume 8.2 fL (7.4-10.4); Platelet Count 187 10x3/uL (130-400); RBC Distribution Width 17.1 % (11.5-14.5); White Blood Cell (WBC) Count 6.4 10x3/uL (4.8-10.8)
[2022-08-07] MEDS: Amiodarone 200 MG TAB PO SCH (10:12)
[2022-08-07] MEDS: Folic Acid 1 MG TAB PO SCH (10:12)
[2022-08-07] MEDS: Simethicone Chewable 80 MG TAB PO SCH (10:12)
[2022-08-07] MEDS: Senokot S 8.6-50 MG TAB PO SCH (10:12)
[2022-08-07] MEDS: Amoxicillin/Potassium Clav 500 MG TAB PO SCH (10:18)
[2022-08-07] MEDS: Pantoprazole 40 MG VIAL IVP SCH (10:18)
[2022-08-07 12:48] VITALS: BP 129/82; TEMP 96.5
[2022-08-07] MEDS: Bisacodyl 10 MG SUPP PR SCH (13:02)
== END 2022-08-07 14:26 | DRG 377 ==
LOC: ERS 14:53 → IMCU/EMU 20:04 → T4-B 08-05 21:57
PROVIDERS: ADMIT Student in an Organized Health Care Education/Training Program; ATTEND Hospitalist
PROC: 3E03329 Introduction of Other Anti-infective into Peripheral Vein, Percutaneous Approach (ICD-10-PCS; principal; 2022-08-01)
PROC: 30233N1 Transfusion of Nonautologous Red Blood Cells into Peripheral Vein, Percutaneous Approach (ICD-10-PCS; 2022-08-01)
PROC: 0DJ08ZZ Inspection of Upper Intestinal Tract, Via Natural or Artificial Opening Endoscopic (ICD-10-PCS; 2022-08-02)
DX: K92.1 Melena (principal); J96.21 Acute and chronic respiratory failure with hypoxia; I50.32 Chronic diastolic (congestive) heart failure; K81.0 Acute cholecystitis; D62 Acute posthemorrhagic anemia; I69.954 Hemiplegia and hemiparesis following unspecified cerebrovascular disease affecting left non-dominant side; Z66 Do not resuscitate; I73.9 Peripheral vascular disease, unspecified; K21.9 Gastro-esophageal reflux disease without esophagitis; F03.90 Unspecified dementia, unspecified severity, without behavioral disturbance, psychotic disturbance, mood disturbance, and anxiety; E83.51 Hypocalcemia; I11.0 Hypertensive heart disease with heart failure; E78.5 Hyperlipidemia, unspecified; D64.9 Anemia, unspecified; I48.0 Paroxysmal atrial fibrillation; K44.9 Diaphragmatic hernia without obstruction or gangrene; F32.A Depression, unspecified; I71.40 Abdominal aortic aneurysm, without rupture, unspecified; E87.6 Hypokalemia; Z90.710 Acquired absence of both cervix and uterus; Z79.82 Long term (current) use of aspirin; Z79.899 Other long term (current) drug therapy
CPT/HCPCS: 36415; 36430; 51701; 71045; 74177; 76705; 80048; 80053; 81003; 82274; 82728; 83540; 83550; 83605; 83615; 83735; 85025; 85027; 85046; 85610; 85730; 86850; 86900; 86901; 87040; 87086; 93005; 94760; 96360; 96361; 96374; C9113; J0696; J2543; J2704; J3475; J3480; J3490; J7030; J7042; P9016; Q0162; Q9967

== ENCOUNTER 2022-08-09 05:28 | Inpatient (IN) | payer MEDICARE ==
[2022-08-09 06:47] LABS: #Eosinphils 0.3 thou/uL (0.0-0.7); #Lymphocytes 1.2 thou/uL (1.20-3.40); #Monocytes 0.5 thou/uL (0.11-0.59); #Neutrophils 5.1 thou/uL (1.40-6.50); %Eosinophils 4.7 % (0.0-10.0); %Neutrophils 71.3 % (42.0-75.0); Hemoglobin 8.6 g/dL (12.0-16.0); Mean Corpuscular HGB CONC 31.5 g/dL (32.0-36.0); Mean Corpuscular Hemoglobin 31.1 pg (27.0-31.0); Mean Corpuscular Volume 98.7 fl (78.0-98.0); Platelet Count 209 10x3/uL (130-400); RBC Distribution Width 17.4 % (11.5-14.5); Red Blood Cell (RBC) Count 2.75 mill/uL (4.20-5.40); White Blood Cell (WBC) Count 7.1 10x3/uL (4.8-10.8)
[2022-08-09 07:09] LABS: ALT (SGPT) Less than 7 U/L (8-55); AST (SGOT) 17 U/L (5-34); Albumin 2.7 g/dL (3.4-4.8); Alkaline Phosphatase 87 U/L (40-110); Anion Gap 13 mmol/L (10-20); BUN (Urea Nitrogen) 20 mg/dL (9.8-20.1); Bilirubin, Total 0.2 mg/dL (0.2-1.2); CK (CPK) 21 U/L (29-168); Calc. Creatinine Clearance 0 mL/min (70-130); Calcium 8.8 mg/dL (7.8-10.44); Carbon Dioxide 20 mmol/L (23-31); Chloride 113 mmol/L (98-107); Estimated GFR 62; Globulin 3.4 g/dL (2.4-3.5); Glucose 97 mg/dL (83-110); Lipase 29 U/L (8-78); Potassium 4.5 mmol/L (3.5-5.1); Protein, Total 6.1 g/dL (5.8-8.1); Sodium 141 mmol/L (136-145)
[2022-08-09 07:31] LABS: CKMB 1.9 ng/mL (0-6.6)
[2022-08-09] MEDS ORDERED: Furosemide 40 MG/4 ML VIAL ONE (07:47)
[2022-08-09 09:47] LABS: Bacteria/HPF 1+ HPF (None Seen); Bilirubin Negative (Negative); Blood, Urine 3+ (Negative); Clarity Clear (Clear); Glucose, Urine (Dipstick) Normal (Negative); Ketone, Urine Negative (Negative); Leukocyte 500 Leu/uL (Negative); Nitrite Negative (Negative); Protein, Urine (Dipstick) Negative (Neg-Trace); RBC/HPF 0-3 HPF (0-3); Specific Gravity, Urine 1.009 (1.002-1.036); Squamous Epithelial 0-3 HPF (0-3); Urobilinogen Normal mg/dL (Less than 2); pH, Urine 5.5 (5.0-9.0)
[2022-08-09] MEDS ORDERED: Acetaminophen 650 MG Suppository PR PRN (09:51)
[2022-08-09] MEDS ORDERED: Ondansetron PF 4 MG/2 ML Vial IVP PRN (09:51)
[2022-08-09 11:04] LABS: CKMB 1.9 ng/mL (0-6.6)
[2022-08-09 14:05] LABS: Iron 92 ug/dL (50-170); Iron Binding Capacity, Total 236 mcg/dL (265-497)
[2022-08-09] MEDS ORDERED: Furosemide 40 MG/4 ML VIAL SLOW IVP SCH (16:00)
[2022-08-09] MEDS: Senokot 8.6 MG TAB PO SCH (16:27)
[2022-08-09 17:23] LABS: CKMB 1.4 ng/mL (0-6.6)
[2022-08-09 17:29] VITALS: BMI 20.7
[2022-08-09] MEDS: QUEtiapine 25 MG TAB PO SCH (21:16)
[2022-08-09] MEDS: Atorvastatin Calcium 40 MG TAB PO SCH (21:17)
[2022-08-09] MEDS: Docusate 100 MG CAP PO SCH (21:17)
[2022-08-10 06:05] LABS: #Eosinphils 0.3 thou/uL (0.0-0.7); #Lymphocytes 1.3 thou/uL (1.20-3.40); #Monocytes 0.5 thou/uL (0.11-0.59); #Neutrophils 3.9 thou/uL (1.40-6.50); %Basophils 0.6 % (0.0-1.0); %Eosinophils 4.3 % (0.0-10.0); %Lymphocytes 22.1 % (21.0-51.0); %Monocytes 8.2 % (0.0-10.0); %Neutrophils 64.8 % (42.0-75.0); Hemoglobin 8.3 g/dL (12.0-16.0); Mean Corpuscular HGB CONC 32.4 g/dL (32.0-36.0); Mean Corpuscular Hemoglobin 31.5 pg (27.0-31.0); Mean Corpuscular Volume 97.3 fl (78.0-98.0); Mean Platelet Volume 7.7 fL (7.4-10.4); Platelet Count 199 10x3/uL (130-400); RBC Distribution Width 17.6 % (11.5-14.5); Red Blood Cell (RBC) Count 2.64 mill/uL (4.20-5.40); White Blood Cell (WBC) Count 6.1 10x3/uL (4.8-10.8)
[2022-08-10 06:25] LABS: ALT (SGPT) Less than 7 U/L (8-55); AST (SGOT) 10 U/L (5-34); Albumin 2.4 g/dL (3.4-4.8); Alkaline Phosphatase 75 U/L (40-110); Anion Gap 12 mmol/L (10-20); BUN (Urea Nitrogen) 16 mg/dL (9.8-20.1); Bilirubin, Total 0.3 mg/dL (0.2-1.2); Calc. Creatinine Clearance 39 mL/min (70-130); Calcium 8.3 mg/dL (7.8-10.44); Carbon Dioxide 28 mmol/L (23-31); Chloride 106 mmol/L (98-107); Estimated GFR 69; Glucose 90 mg/dL (83-110); Potassium 3.2 mmol/L (3.5-5.1); Protein, Total 5.4 g/dL (5.8-8.1); Sodium 143 mmol/L (136-145)
[2022-08-10] MEDS ORDERED: Electrolyte Replacement Protocol 1 EACH FS SCH (07:30)
[2022-08-10] MEDS ORDERED: Potassium Chloride 20 MEQ TAB PO SCH (08:00)
[2022-08-10] MEDS: Cholecalciferol 1,000 UNITS (25 MCG) TAB PO SCH (09:37)
[2022-08-10] MEDS: Amiodarone 200 MG TAB PO SCH (09:37)
[2022-08-10] MEDS: Docusate 100 MG CAP PO SCH ×2 (09:37→20:54)
[2022-08-10] MEDS: Ferrous Sulfate 325 MG TAB PO SCH (09:38)
[2022-08-10] MEDS: Folic Acid 1 MG TAB PO SCH (09:38)
[2022-08-10] MEDS: Pantoprazole 40 MG VIAL IVP SCH (09:38)
[2022-08-10] MEDS ORDERED: Furosemide 40 MG/4 ML VIAL SLOW IVP SCH (10:15)
[2022-08-10] MEDS: Senokot 8.6 MG TAB PO SCH (10:38)
[2022-08-10] MEDS ORDERED: Furosemide 100 MG/10 ML VIAL SLOW IVP SCH (14:00)
[2022-08-10] MEDS: Atorvastatin Calcium 40 MG TAB PO SCH (20:53)
[2022-08-10] MEDS: QUEtiapine 25 MG TAB PO SCH (20:53)
[2022-08-10] MEDS: HYDROcodone/Acetaminophen 5/325 mg Tablet PO PRN (23:12)
[2022-08-11] MEDS: Furosemide 40 MG/4 ML VIAL SLOW IVP SCH ×2 (05:46→12:42)
[2022-08-11 08:13] LABS: #Eosinphils 0.2 thou/uL (0.0-0.7); #Lymphocytes 1.8 thou/uL (1.20-3.40); #Monocytes 0.6 thou/uL (0.11-0.59); #Neutrophils 3.5 thou/uL (1.40-6.50); %Basophils 0.8 % (0.0-1.0); %Eosinophils 3.5 % (0.0-10.0); %Lymphocytes 29.6 % (21.0-51.0); %Monocytes 9.3 % (0.0-10.0); %Neutrophils 56.7 % (42.0-75.0); Hemoglobin 8.9 g/dL (12.0-16.0); Mean Corpuscular HGB CONC 31.6 g/dL (32.0-36.0); Mean Corpuscular Hemoglobin 30.8 pg (27.0-31.0); Mean Corpuscular Volume 97.7 fl (78.0-98.0); Mean Platelet Volume 7.6 fL (7.4-10.4); Platelet Count 214 10x3/uL (130-400); RBC Distribution Width 17.7 % (11.5-14.5); Red Blood Cell (RBC) Count 2.87 mill/uL (4.20-5.40); White Blood Cell (WBC) Count 6.2 10x3/uL (4.8-10.8)
[2022-08-11 08:33] LABS: Anion Gap 12 mmol/L (10-20); BUN (Urea Nitrogen) 15 mg/dL (9.8-20.1); Calc. Creatinine Clearance 40 mL/min (70-130); Calcium 8.4 mg/dL (7.8-10.44); Carbon Dioxide 31 mmol/L (23-31); Chloride 101 mmol/L (98-107); Estimated GFR 72; Glucose 83 mg/dL (83-110); Magnesium 1.7 mg/dL (1.6-2.6); Potassium 3.4 mmol/L (3.5-5.1); Sodium 141 mmol/L (136-145)
[2022-08-11] MEDS ORDERED: Magnesium 2 GM/50 ML(in water) 2 GM in Premix Bag 1 BAG IVPB SCH (09:15)
[2022-08-11] MEDS ORDERED: Potassium Chloride 20 MEQ TAB PO SCH (09:15)
[2022-08-11] MEDS: Amiodarone 200 MG TAB PO SCH (09:22)
[2022-08-11] MEDS: Ferrous Sulfate 325 MG TAB PO SCH (09:22)
[2022-08-11] MEDS: Docusate 100 MG CAP PO SCH ×2 (09:22→20:51)
[2022-08-11] MEDS: Folic Acid 1 MG TAB PO SCH (09:22)
[2022-08-11] MEDS: Cholecalciferol 1,000 UNITS (25 MCG) TAB PO SCH (09:22)
[2022-08-11] MEDS: Pantoprazole 40 MG VIAL IVP SCH (09:23)
[2022-08-11] MEDS: HYDROcodone/Acetaminophen 5/325 mg Tablet PO PRN ×2 (09:28→12:42)
[2022-08-11] MEDS: Senokot 8.6 MG TAB PO SCH (12:42)
[2022-08-11 15:29] LABS: Potassium 3.9 mmol/L (3.5-5.1)
[2022-08-11] MEDS ORDERED: Morphine 2 MG/ML VIAL SLOW IVP SCH (15:30)
[2022-08-11] MEDS: Atorvastatin Calcium 40 MG TAB PO SCH (20:51)
[2022-08-11] MEDS: QUEtiapine 25 MG TAB PO SCH (20:51)
[2022-08-12 04:00] LABS: #Eosinphils 0.2 thou/uL (0.0-0.7); #Lymphocytes 1.4 thou/uL (1.20-3.40); #Monocytes 0.6 thou/uL (0.11-0.59); #Neutrophils 3.5 thou/uL (1.40-6.50); %Basophils 0.8 % (0.0-1.0); %Eosinophils 3.4 % (0.0-10.0); %Neutrophils 61.8 % (42.0-75.0); Hemoglobin 8.5 g/dL (12.0-16.0); Mean Corpuscular HGB CONC 34.4 g/dL (32.0-36.0); Mean Corpuscular Hemoglobin 33.6 pg (27.0-31.0); Mean Corpuscular Volume 97.8 fl (78.0-98.0); Mean Platelet Volume 7.4 fL (7.4-10.4); Platelet Count 205 10x3/uL (130-400); Red Blood Cell (RBC) Count 2.54 mill/uL (4.20-5.40); White Blood Cell (WBC) Count 5.6 10x3/uL (4.8-10.8)
[2022-08-12 04:22] LABS: ALT (SGPT) Less than 7 U/L (8-55); AST (SGOT) 10 U/L (5-34); Albumin 2.4 g/dL (3.4-4.8); Alkaline Phosphatase 65 U/L (40-110); Anion Gap 12 mmol/L (10-20); BUN (Urea Nitrogen) 16 mg/dL (9.8-20.1); Bilirubin, Total 0.4 mg/dL (0.2-1.2); Calc. Creatinine Clearance 39 mL/min (70-130); Calcium 8.4 mg/dL (7.8-10.44); Carbon Dioxide 34 mmol/L (23-31); Chloride 98 mmol/L (98-107); Estimated GFR 69; Globulin 3.2 g/dL (2.4-3.5); Glucose 92 mg/dL (83-110); Protein, Total 5.6 g/dL (5.8-8.1); Sodium 140 mmol/L (136-145)
[2022-08-12] MEDS: Furosemide 40 MG/4 ML VIAL SLOW IVP SCH ×2 (06:12→15:01)
[2022-08-12] MEDS: Cholecalciferol 1,000 UNITS (25 MCG) TAB PO SCH (08:28)
[2022-08-12] MEDS: Docusate 100 MG CAP PO SCH ×2 (08:28→21:53)
[2022-08-12] MEDS: Amiodarone 200 MG TAB PO SCH (08:28)
[2022-08-12] MEDS: Pantoprazole 40 MG VIAL IVP SCH (08:29)
[2022-08-12] MEDS: Ferrous Sulfate 325 MG TAB PO SCH (08:29)
[2022-08-12] MEDS: Folic Acid 1 MG TAB PO SCH (08:29)
[2022-08-12] MEDS ORDERED: Magnesium 2 GM/50 ML(in water) 2 GM in Premix Bag 1 BAG IVPB SCH (09:00)
[2022-08-12] MEDS: Senokot 8.6 MG TAB PO SCH (11:23)
[2022-08-12] MEDS ORDERED: cefTRIAXone\\ROCEPHIN 1 GM in Sodium Chloride 0.9% 100 ML IVPB SCH (14:00)
[2022-08-12] MEDS ORDERED: Sodium Chloride 0.9% 250 ML IV SCH (21:30)
[2022-08-12] MEDS: Atorvastatin Calcium 40 MG TAB PO SCH (21:53)
[2022-08-12] MEDS: QUEtiapine 25 MG TAB PO SCH (21:53)
[2022-08-13 04:51] LABS: #Eosinphils 0.1 thou/uL (0.0-0.7); #Lymphocytes 1.3 thou/uL (1.20-3.40); #Monocytes 0.5 thou/uL (0.11-0.59); #Neutrophils 5.1 thou/uL (1.40-6.50); %Basophils 0.5 % (0.0-1.0); %Eosinophils 1.9 % (0.0-10.0); %Lymphocytes 18.8 % (21.0-51.0); %Monocytes 7.3 % (0.0-10.0); %Neutrophils 71.5 % (42.0-75.0); Mean Corpuscular HGB CONC 32.2 g/dL (32.0-36.0); Mean Corpuscular Hemoglobin 31.3 pg (27.0-31.0); Mean Corpuscular Volume 97.2 fl (78.0-98.0); Mean Platelet Volume 7.6 fL (7.4-10.4); Platelet Count 219 10x3/uL (130-400); Red Blood Cell (RBC) Count 2.55 mill/uL (4.20-5.40); White Blood Cell (WBC) Count 7.1 10x3/uL (4.8-10.8)
[2022-08-13 05:17] LABS: ALT (SGPT) Less than 7 U/L (8-55); AST (SGOT) 10 U/L (5-34); Albumin 2.4 g/dL (3.4-4.8); Alkaline Phosphatase 65 U/L (40-110); Anion Gap 12 mmol/L (10-20); BUN (Urea Nitrogen) 19 mg/dL (9.8-20.1); Bilirubin, Total 0.4 mg/dL (0.2-1.2); Calc. Creatinine Clearance 36 mL/min (70-130); Calcium 8.3 mg/dL (7.8-10.44); Carbon Dioxide 35 mmol/L (23-31); Chloride 96 mmol/L (98-107); Estimated GFR 62; Globulin 3.2 g/dL (2.4-3.5); Glucose 99 mg/dL (83-110); Magnesium 2.5 mg/dL (1.6-2.6); Potassium 4.1 mmol/L (3.5-5.1); Protein, Total 5.6 g/dL (5.8-8.1); Sodium 139 mmol/L (136-145)
[2022-08-13] MEDS: Amiodarone 200 MG TAB PO SCH (09:35)
[2022-08-13] MEDS: Furosemide 20 MG TAB PO SCH (09:35)
[2022-08-13] MEDS: Folic Acid 1 MG TAB PO SCH (09:39)
[2022-08-13] MEDS: Docusate 100 MG CAP PO SCH ×2 (09:39→21:30)
[2022-08-13] MEDS: HYDROcodone/Acetaminophen 5/325 mg Tablet PO PRN (09:40)
[2022-08-13] MEDS: Ferrous Sulfate 325 MG TAB PO SCH (09:42)
[2022-08-13] MEDS: Cholecalciferol 1,000 UNITS (25 MCG) TAB PO SCH (09:54)
[2022-08-13] MEDS ORDERED: Ketorolac Tromethamine 30 MG/ML VIAL IVP SCH (12:15)
[2022-08-13] MEDS: Senokot 8.6 MG TAB PO SCH (12:35)
[2022-08-13] MEDS ORDERED: Sodium Chloride 0.9% 500 ML IV SCH ×2 (13:15→20:00)
[2022-08-13] MEDS ORDERED: Meclizine HCl 12.5 MG TAB PO SCH (14:15)
[2022-08-13 14:59] LABS: Hemoglobin 8.4 g/dL (12.0-16.0)
[2022-08-13] MEDS ORDERED: diphenhydrAMINE 30 GM TUBE TOP PRN (15:01)
[2022-08-13] MEDS ORDERED: Sodium Chloride 0.9% 500 ML IVPB SCH (20:15)
[2022-08-13] MEDS: QUEtiapine 25 MG TAB PO SCH (21:00)
[2022-08-13] MEDS: Atorvastatin Calcium 40 MG TAB PO SCH (21:30)
[2022-08-13] MEDS: Melatonin 3 MG TAB PO PRN (21:30)
[2022-08-14 06:28] LABS: #Eosinphils 0.2 thou/uL (0.0-0.7); #Lymphocytes 1.4 thou/uL (1.20-3.40); #Monocytes 0.5 thou/uL (0.11-0.59); #Neutrophils 6.6 thou/uL (1.40-6.50); %Basophils 0.4 % (0.0-1.0); %Eosinophils 2.5 % (0.0-10.0); %Monocytes 5.9 % (0.0-10.0); %Neutrophils 75.3 % (42.0-75.0); Hemoglobin 8.2 g/dL (12.0-16.0); Mean Corpuscular HGB CONC 31.7 g/dL (32.0-36.0); Mean Corpuscular Hemoglobin 31.2 pg (27.0-31.0); Mean Corpuscular Volume 98.2 fl (78.0-98.0); Mean Platelet Volume 7.5 fL (7.4-10.4); Platelet Count 208 10x3/uL (130-400); RBC Distribution Width 17.1 % (11.5-14.5); Red Blood Cell (RBC) Count 2.62 mill/uL (4.20-5.40); White Blood Cell (WBC) Count 8.8 10x3/uL (4.8-10.8)
[2022-08-14 06:47] LABS: ALT (SGPT) Less than 7 U/L (8-55); AST (SGOT) 11 U/L (5-34); Albumin 2.5 g/dL (3.4-4.8); Alkaline Phosphatase 73 U/L (40-110); Anion Gap 13 mmol/L (10-20); BUN (Urea Nitrogen) 25 mg/dL (9.8-20.1); Bilirubin, Total 0.4 mg/dL (0.2-1.2); Calc. Creatinine Clearance 26 mL/min (70-130); Calcium 8.1 mg/dL (7.8-10.44); Carbon Dioxide 31 mmol/L (23-31); Chloride 99 mmol/L (98-107); Estimated GFR 43; Globulin 3.2 g/dL (2.4-3.5); Glucose 92 mg/dL (83-110); Potassium 4.8 mmol/L (3.5-5.1); Protein, Total 5.7 g/dL (5.8-8.1); Sodium 138 mmol/L (136-145)
[2022-08-14] MEDS: Senokot 8.6 MG TAB PO SCH (11:14)
[2022-08-14] MEDS: Cholecalciferol 1,000 UNITS (25 MCG) TAB PO SCH (11:17)
[2022-08-14] MEDS: Amiodarone 200 MG TAB PO SCH ×2 (11:17→11:48)
[2022-08-14] MEDS: Ferrous Sulfate 325 MG TAB PO SCH (11:18)
[2022-08-14] MEDS: Docusate 100 MG CAP PO SCH ×2 (11:18→20:21)
[2022-08-14] MEDS: Folic Acid 1 MG TAB PO SCH (11:18)
[2022-08-14] MEDS: Furosemide 20 MG TAB PO SCH (12:21)
[2022-08-14] MEDS: HYDROcodone/Acetaminophen 5/325 mg Tablet PO PRN (16:01)
[2022-08-14] MEDS: Atorvastatin Calcium 40 MG TAB PO SCH (20:21)
[2022-08-14] MEDS: QUEtiapine 25 MG TAB PO SCH (20:27)
[2022-08-15 04:53] LABS: #Eosinphils 0.3 thou/uL (0.0-0.7); #Lymphocytes 1.2 thou/uL (1.20-3.40); #Monocytes 0.5 thou/uL (0.11-0.59); #Neutrophils 7.4 thou/uL (1.40-6.50); %Basophils 0.4 % (0.0-1.0); %Eosinophils 3.3 % (0.0-10.0); %Lymphocytes 12.8 % (21.0-51.0); %Monocytes 5.6 % (0.0-10.0); Hemoglobin 8.5 g/dL (12.0-16.0); Mean Corpuscular HGB CONC 31.4 g/dL (32.0-36.0); Mean Corpuscular Hemoglobin 30.9 pg (27.0-31.0); Mean Corpuscular Volume 98.4 fl (78.0-98.0); Mean Platelet Volume 7.5 fL (7.4-10.4); Platelet Count 209 10x3/uL (130-400); RBC Distribution Width 16.9 % (11.5-14.5); Red Blood Cell (RBC) Count 2.75 mill/uL (4.20-5.40); White Blood Cell (WBC) Count 9.5 10x3/uL (4.8-10.8)
[2022-08-15 05:09] LABS: ALT (SGPT) Less than 7 U/L (8-55); AST (SGOT) 12 U/L (5-34); Albumin 2.5 g/dL (3.4-4.8); Alkaline Phosphatase 71 U/L (40-110); Anion Gap 14 mmol/L (10-20); BUN (Urea Nitrogen) 23 mg/dL (9.8-20.1); Bilirubin, Total 0.4 mg/dL (0.2-1.2); Calc. Creatinine Clearance 31 mL/min (70-130); Calcium 8.2 mg/dL (7.8-10.44); Carbon Dioxide 28 mmol/L (23-31); Chloride 100 mmol/L (98-107); Estimated GFR 54; Globulin 3.4 g/dL (2.4-3.5); Glucose 83 mg/dL (83-110); Potassium 4.1 mmol/L (3.5-5.1); Protein, Total 5.9 g/dL (5.8-8.1); Sodium 138 mmol/L (136-145)
[2022-08-15] MEDS: Cholecalciferol 1,000 UNITS (25 MCG) TAB PO SCH (09:27)
[2022-08-15] MEDS: Folic Acid 1 MG TAB PO SCH (09:28)
[2022-08-15] MEDS: Docusate 100 MG CAP PO SCH ×2 (09:28→21:16)
[2022-08-15] MEDS: Furosemide 20 MG TAB PO SCH (09:28)
[2022-08-15] MEDS: Ferrous Sulfate 325 MG TAB PO SCH (09:28)
[2022-08-15] MEDS: Amiodarone 200 MG TAB PO SCH (09:28)
[2022-08-15] MEDS: Senokot 8.6 MG TAB PO SCH (12:17)
[2022-08-15] MEDS: Melatonin 3 MG TAB PO PRN (21:15)
[2022-08-15] MEDS: QUEtiapine 25 MG TAB PO SCH (21:16)
[2022-08-15] MEDS: Atorvastatin Calcium 40 MG TAB PO SCH (21:16)
[2022-08-15] MEDS: HYDROcodone/Acetaminophen 5/325 mg Tablet PO PRN (21:16)
[2022-08-16 04:26] LABS: #Eosinphils 0.2 thou/uL (0.0-0.7); #Lymphocytes 1.3 thou/uL (1.20-3.40); #Monocytes 0.5 thou/uL (0.11-0.59); #Neutrophils 5.1 thou/uL (1.40-6.50); %Basophils 0.6 % (0.0-1.0); %Lymphocytes 18.6 % (21.0-51.0); %Neutrophils 70.8 % (42.0-75.0); Hemoglobin 7.5 g/dL (12.0-16.0); Mean Corpuscular HGB CONC 30.7 g/dL (32.0-36.0); Mean Corpuscular Volume 97.8 fl (78.0-98.0); Mean Platelet Volume 7.6 fL (7.4-10.4); Platelet Count 237 10x3/uL (130-400); RBC Distribution Width 16.4 % (11.5-14.5); White Blood Cell (WBC) Count 7.1 10x3/uL (4.8-10.8)
[2022-08-16 04:56] LABS: ALT (SGPT) Less than 7 U/L (8-55); AST (SGOT) 11 U/L (5-34); Albumin 2.5 g/dL (3.4-4.8); Alkaline Phosphatase 68 U/L (40-110); Anion Gap 12 mmol/L (10-20); BUN (Urea Nitrogen) 21 mg/dL (9.8-20.1); Bilirubin, Total 0.4 mg/dL (0.2-1.2); Calc. Creatinine Clearance 33 mL/min (70-130); Calcium 8.1 mg/dL (7.8-10.44); Carbon Dioxide 29 mmol/L (23-31); Chloride 101 mmol/L (98-107); Estimated GFR 60; Globulin 3.2 g/dL (2.4-3.5); Glucose 84 mg/dL (83-110); Potassium 4.4 mmol/L (3.5-5.1); Protein, Total 5.7 g/dL (5.8-8.1); Sodium 138 mmol/L (136-145)
[2022-08-16] MEDS: Folic Acid 1 MG TAB PO SCH (08:40)
[2022-08-16] MEDS: Amiodarone 200 MG TAB PO SCH (08:40)
[2022-08-16] MEDS: Furosemide 20 MG TAB PO SCH (08:40)
[2022-08-16] MEDS: Docusate 100 MG CAP PO SCH ×2 (08:40→20:22)
[2022-08-16] MEDS: Cholecalciferol 1,000 UNITS (25 MCG) TAB PO SCH (08:41)
[2022-08-16] MEDS: Ferrous Sulfate 325 MG TAB PO SCH (08:41)
[2022-08-16] MEDS: HYDROcodone/Acetaminophen 5/325 mg Tablet PO PRN ×2 (09:36→18:00)
[2022-08-16] MEDS: Senokot 8.6 MG TAB PO SCH (11:20)
[2022-08-16] MEDS: Atorvastatin Calcium 40 MG TAB PO SCH (20:21)
[2022-08-16] MEDS: Melatonin 3 MG TAB PO PRN (20:22)
[2022-08-16] MEDS: QUEtiapine 25 MG TAB PO SCH (20:22)
[2022-08-17 05:53] LABS: #Eosinphils 0.2 thou/uL (0.0-0.7); #Lymphocytes 1.4 thou/uL (1.20-3.40); #Monocytes 0.6 thou/uL (0.11-0.59); #Neutrophils 4.4 thou/uL (1.40-6.50); %Basophils 0.5 % (0.0-1.0); %Eosinophils 2.7 % (0.0-10.0); %Lymphocytes 21.1 % (21.0-51.0); %Monocytes 8.8 % (0.0-10.0); %Neutrophils 66.9 % (42.0-75.0); Hemoglobin 7.5 g/dL (12.0-16.0); Mean Corpuscular HGB CONC 32.1 g/dL (32.0-36.0); Mean Corpuscular Hemoglobin 31.3 pg (27.0-31.0); Mean Corpuscular Volume 97.5 fl (78.0-98.0); Mean Platelet Volume 7.3 fL (7.4-10.4); Platelet Count 229 10x3/uL (130-400); RBC Distribution Width 16.4 % (11.5-14.5); White Blood Cell (WBC) Count 6.5 10x3/uL (4.8-10.8)
[2022-08-17 05:58] LABS: ALT (SGPT) Less than 7 U/L (8-55); AST (SGOT) 11 U/L (5-34); Albumin 2.4 g/dL (3.4-4.8); Alkaline Phosphatase 77 U/L (40-110); Anion Gap 10 mmol/L (10-20); BUN (Urea Nitrogen) 23 mg/dL (9.8-20.1); Bilirubin, Total 0.3 mg/dL (0.2-1.2); Calc. Creatinine Clearance 33 mL/min (70-130); Calcium 8.3 mg/dL (7.8-10.44); Carbon Dioxide 30 mmol/L (23-31); Chloride 102 mmol/L (98-107); Estimated GFR 60; Globulin 3.3 g/dL (2.4-3.5); Glucose 93 mg/dL (83-110); Potassium 4.3 mmol/L (3.5-5.1); Protein, Total 5.7 g/dL (5.8-8.1); Sodium 138 mmol/L (136-145)
[2022-08-17 08:25] VITALS: BP 98/52; TEMP 97.3
[2022-08-17] MEDS: Cholecalciferol 1,000 UNITS (25 MCG) TAB PO SCH (09:08)
[2022-08-17] MEDS: Amiodarone 200 MG TAB PO SCH (09:08)
[2022-08-17] MEDS: Ferrous Sulfate 325 MG TAB PO SCH (09:08)
[2022-08-17] MEDS: Docusate 100 MG CAP PO SCH (09:08)
[2022-08-17] MEDS: Folic Acid 1 MG TAB PO SCH (09:08)
[2022-08-17] MEDS: Furosemide 20 MG TAB PO SCH (09:08)
== END 2022-08-17 10:26 | disposition short-term general hospital (02) | DRG 280 ==
LOC: SUATTDRO 05:28 → ERS 05:28 → ERHOLD 11:34 → IMCU/EMU 15:29 → 2NO 08-12 14:23
PROVIDERS: ADMIT Internal Medicine; ATTEND Internal Medicine
DX: I11.0 Hypertensive heart disease with heart failure (principal); I50.33 Acute on chronic diastolic (congestive) heart failure; I21.A1 Myocardial infarction type 2; J96.21 Acute and chronic respiratory failure with hypoxia; N39.0 Urinary tract infection, site not specified; N17.9 Acute kidney failure, unspecified; E78.5 Hyperlipidemia, unspecified; D64.9 Anemia, unspecified; G47.00 Insomnia, unspecified; F41.9 Anxiety disorder, unspecified; F32.A Depression, unspecified; E87.6 Hypokalemia; F03.A0 Unspecified dementia, mild, without behavioral disturbance, psychotic disturbance, mood disturbance, and anxiety; I48.0 Paroxysmal atrial fibrillation; D63.8 Anemia in other chronic diseases classified elsewhere; Z99.81 Dependence on supplemental oxygen; Z79.899 Other long term (current) drug therapy
CPT/HCPCS: 36415; 71045; 80048; 80053; 81003; 81015; 82274; 82550; 82553; 82728; 83540; 83550; 83690; 83735; 83880; 84484; 85025; 86850; 86900; 86901; 87077; 87086; 87186; 93005; 93306; 96374; C9113; J0696; J1885; J1940; J2272; J3475; J3490; J7030

== ENCOUNTER 2022-12-03 05:33 | Emergency (ER) | payer MEDICARE | END 2022-12-03 09:29 | LOC: ERS 05:33 | DX: S00.83XA Contusion of other part of head, initial encounter (principal); E78.5 Hyperlipidemia, unspecified; I48.91 Unspecified atrial fibrillation; I11.0 Hypertensive heart disease with heart failure; I50.9 Heart failure, unspecified; W18.30XA Fall on same level, unspecified, initial encounter; Z79.899 Other long term (current) drug therapy | CPT/HCPCS: 70450; 71045; 72125; 72170 ==

== ENCOUNTER 2023-02-16 13:40 | Inpatient (IN) | payer MEDICARE ==
[2023-02-16 14:33] LABS: #Eosinphils 0.4 thou/uL (0.0-0.7); #Monocytes 0.6 thou/uL (0.11-0.59); #Neutrophils 8.1 thou/uL (1.40-6.50); %Basophils 0.3 % (0.0-1.0); %Eosinophils 3.6 % (0.0-10.0); %Lymphocytes 8.1 % (21.0-51.0); %Monocytes 5.8 % (0.0-10.0); %Neutrophils 80.8 % (42.0-75.0); Hematocrit 34.4 % (36.0-47.0); Mean Corpuscular HGB CONC 29.1 g/dL (32.0-36.0); Mean Corpuscular Hemoglobin 27.3 pg (27.0-31.0); Mean Platelet Volume 9.7 fL (7.4-10.4); Platelet Count 325 10x3/uL (130-400); RBC Distribution Width 17.5 % (11.5-14.5); Red Blood Cell (RBC) Count 3.66 mill/uL (4.20-5.40); White Blood Cell (WBC) Count 10.1 10x3/uL (4.8-10.8)
[2023-02-16] MEDS ORDERED: Iopamidol-370 76% 500 ML MDV (1 ML CHARGE) ONE (14:40)
[2023-02-16 14:58] LABS: ALT (SGPT) 11 U/L (8-55); AST (SGOT) 22 U/L (5-34); Albumin 3.4 g/dL (3.4-4.8); Alkaline Phosphatase 74 U/L (40-110); Anion Gap 14 mmol/L (10-20); BUN (Urea Nitrogen) 34 mg/dL (9.8-20.1); Bilirubin, Total 0.3 mg/dL (0.2-1.2); Calc. Creatinine Clearance 0 mL/min (70-130); Calcium 9.1 mg/dL (7.8-10.44); Carbon Dioxide 25 mmol/L (23-31); Chloride 110 mmol/L (98-107); Estimated GFR 38; Globulin 4.2 g/dL (2.4-3.5); Glucose 128 mg/dL (83-110); Lipase 24 U/L (8-78); Magnesium 2.2 mg/dL (1.6-2.6); Potassium 4.5 mmol/L (3.5-5.1); Protein, Total 7.6 g/dL (5.8-8.1); Sodium 144 mmol/L (136-145)
[2023-02-16] MEDS ORDERED: fentaNYL 50 mcg/mL 1 mL Vial ONE (15:15)
[2023-02-16] MEDS ORDERED: Furosemide 40 MG/4 ML VIAL ONE (16:57)
[2023-02-16] MEDS ORDERED: Aspirin Chewable 81 MG TAB ONE (16:57)
[2023-02-16 17:43] LABS: Bacteria/HPF None Seen HPF (None Seen); Bilirubin Negative (Negative); Blood, Urine Negative (Negative); CAUTI Indications for Culture Alt mental st,lethar; Clarity Clear (Clear); Glucose, Urine (Dipstick) Normal (Negative); Ketone, Urine Negative (Negative); Leukocyte 75 Leu/uL (Negative); Nitrite Negative (Negative); Protein, Urine (Dipstick) 20 mg/dL (Neg-Trace); Specific Gravity, Urine 1.025 (1.002-1.036); Squamous Epithelial 0-3 HPF (0-3); Urobilinogen Normal mg/dL (Less than 2)
[2023-02-16 17:46] LABS: Urine Culture Reflex Yes Yes
[2023-02-16] MEDS ORDERED: Ondansetron ODT 4 MG TAB PO PRN (18:35)
[2023-02-16] MEDS ORDERED: Ondansetron PF 4 MG/2 ML Vial IVP PRN (18:35)
[2023-02-16] MEDS ORDERED: Mineral Oil ENEMA PR SCH (18:45)
[2023-02-16] MEDS: Ciprofloxacin Lactate/D5W 200 MG in Premix 1 BAG IVPB SCH (21:27)
[2023-02-16] MEDS: Famotidine 20 MG TAB PO SCH (21:27)
[2023-02-16 21:29] VITALS: BMI 19.9
[2023-02-16] MEDS: Lactated Ringer's 1,000 ML IV SCH (21:53)
[2023-02-17 04:40] LABS: #Eosinphils 0.4 thou/uL (0.0-0.7); #Monocytes 0.4 thou/uL (0.11-0.59); #Neutrophils 11.3 thou/uL (1.40-6.50); %Basophils 0.3 % (0.0-1.0); %Eosinophils 3.2 % (0.0-10.0); %Lymphocytes 4.3 % (21.0-51.0); %Neutrophils 88.4 % (42.0-75.0); Hematocrit 33.3 % (36.0-47.0); Hemoglobin 9.7 g/dL (12.0-16.0); Mean Corpuscular HGB CONC 29.1 g/dL (32.0-36.0); Mean Corpuscular Hemoglobin 27.5 pg (27.0-31.0); Mean Corpuscular Volume 94.3 fl (78.0-98.0); Mean Platelet Volume 9.7 fL (7.4-10.4); Platelet Count 279 10x3/uL (130-400); RBC Distribution Width 17.7 % (11.5-14.5); Red Blood Cell (RBC) Count 3.53 mill/uL (4.20-5.40); White Blood Cell (WBC) Count 12.8 10x3/uL (4.8-10.8)
[2023-02-17 05:16] LABS: Anion Gap 17 mmol/L (10-20); BUN (Urea Nitrogen) 32 mg/dL (9.8-20.1); Calc. Creatinine Clearance 29 mL/min (70-130); Calcium 8.5 mg/dL (7.8-10.44); Carbon Dioxide 21 mmol/L (23-31); Chloride 109 mmol/L (98-107); Estimated GFR 49; Glucose 81 mg/dL (83-110); Potassium 3.8 mmol/L (3.5-5.1); Sodium 143 mmol/L (136-145)
[2023-02-17] MEDS ORDERED: FLU VACC QS2023(65UP)/MF59C/PF 60 MCG/0.5 ML SYRINGE IM ONE (09:00)
[2023-02-17] MEDS: Furosemide 20 MG/2 ML VIAL SLOW IVP SCH (09:44)
[2023-02-17] MEDS: Ciprofloxacin Lactate/D5W 200 MG in Premix 1 BAG IVPB SCH ×3 (09:44→20:44)
[2023-02-17] MEDS: Famotidine 20 MG TAB PO SCH ×2 (09:44→20:44)
[2023-02-17] MEDS: Lactated Ringer's 1,000 ML IV SCH (11:25)
[2023-02-18 04:28] LABS: #Eosinphils 0.3 thou/uL (0.0-0.7); #Monocytes 0.5 thou/uL (0.11-0.59); #Neutrophils 9.5 thou/uL (1.40-6.50); %Basophils 0.4 % (0.0-1.0); %Eosinophils 2.5 % (0.0-10.0); %Lymphocytes 6.9 % (21.0-51.0); %Monocytes 4.1 % (0.0-10.0); %Neutrophils 85.5 % (42.0-75.0); Hematocrit 31.4 % (36.0-47.0); Hemoglobin 9.4 g/dL (12.0-16.0); Mean Corpuscular HGB CONC 29.9 g/dL (32.0-36.0); Mean Corpuscular Hemoglobin 27.5 pg (27.0-31.0); Mean Corpuscular Volume 91.8 fl (78.0-98.0); Mean Platelet Volume 9.9 fL (7.4-10.4); Platelet Count 300 10x3/uL (130-400); RBC Distribution Width 17.9 % (11.5-14.5); Red Blood Cell (RBC) Count 3.42 mill/uL (4.20-5.40); White Blood Cell (WBC) Count 11.2 10x3/uL (4.8-10.8)
[2023-02-18 04:58] LABS: Anion Gap 16 mmol/L (10-20); BUN (Urea Nitrogen) 34 mg/dL (9.8-20.1); Calc. Creatinine Clearance 26 mL/min (70-130); Calcium 8.6 mg/dL (7.8-10.44); Carbon Dioxide 23 mmol/L (23-31); Chloride 106 mmol/L (98-107); Estimated GFR 42; Glucose 100 mg/dL (83-110); Sodium 141 mmol/L (136-145)
[2023-02-18] MEDS: Famotidine 20 MG TAB PO SCH ×2 (09:05→22:56)
[2023-02-18] MEDS: Furosemide 20 MG/2 ML VIAL SLOW IVP SCH (09:05)
[2023-02-18] MEDS: Lactated Ringer's 1,000 ML IV SCH (09:17)
[2023-02-18] MEDS: Acetaminophen 325 MG TAB PO PRN (12:51)
[2023-02-18] MEDS ORDERED: Furosemide 20 MG/2 ML VIAL SLOW IVP SCH (16:45)
[2023-02-18] MEDS: Ferrous Sulfate 325 MG TAB PO SCH (17:20)
[2023-02-18] MEDS ORDERED: Cefepime 1 GM in Sodium Chloride 0.9% 100 ML IVPB SCH (21:00)
[2023-02-18] MEDS: QUEtiapine 25 MG TAB PO SCH (22:55)
[2023-02-18] MEDS: Atorvastatin Calcium 40 MG TAB PO SCH (22:55)
[2023-02-18] MEDS: Acetaminophen 500 MG TAB PO SCH (22:56)
[2023-02-19 04:25] LABS: #Eosinphils 0.3 thou/uL (0.0-0.7); #Monocytes 0.5 thou/uL (0.11-0.59); %Basophils 0.3 % (0.0-1.0); %Eosinophils 3.8 % (0.0-10.0); %Lymphocytes 8.4 % (21.0-51.0); %Monocytes 5.7 % (0.0-10.0); %Neutrophils 80.8 % (42.0-75.0); Hematocrit 27.2 % (36.0-47.0); Hemoglobin 8.2 g/dL (12.0-16.0); Mean Corpuscular HGB CONC 30.1 g/dL (32.0-36.0); Mean Corpuscular Hemoglobin 27.5 pg (27.0-31.0); Mean Corpuscular Volume 91.3 fl (78.0-98.0); Mean Platelet Volume 9.4 fL (7.4-10.4); Platelet Count 251 10x3/uL (130-400); RBC Distribution Width 17.8 % (11.5-14.5); Red Blood Cell (RBC) Count 2.98 mill/uL (4.20-5.40); White Blood Cell (WBC) Count 8.7 10x3/uL (4.8-10.8)
[2023-02-19 04:52] LABS: Anion Gap 12 mmol/L (10-20); BUN (Urea Nitrogen) 30 mg/dL (9.8-20.1); Calc. Creatinine Clearance 31 mL/min (70-130); Calcium 8.4 mg/dL (7.8-10.44); Carbon Dioxide 26 mmol/L (23-31); Chloride 108 mmol/L (98-107); Estimated GFR 53; Glucose 93 mg/dL (83-110); Potassium 3.4 mmol/L (3.5-5.1); Sodium 143 mmol/L (136-145)
[2023-02-19] MEDS: Furosemide 20 MG/2 ML VIAL SLOW IVP SCH ×3 (05:37→13:23)
[2023-02-19] MEDS: Acetaminophen 500 MG TAB PO SCH ×2 (09:31→21:08)
[2023-02-19] MEDS: Famotidine 20 MG TAB PO SCH ×2 (09:32→21:08)
[2023-02-19] MEDS: Venlafaxine HCl XR 150 MG CAP PO SCH (09:32)
[2023-02-19] MEDS: Ferrous Sulfate 325 MG TAB PO SCH ×2 (09:32→17:12)
[2023-02-19] MEDS: Amiodarone 200 MG TAB PO SCH (09:32)
[2023-02-19] MEDS ORDERED: Cefepime 1 GM in Sodium Chloride 0.9% 100 ML IVPB SCH ×2 (13:00→21:00)
[2023-02-19] MEDS: Atorvastatin Calcium 40 MG TAB PO SCH (21:07)
[2023-02-19] MEDS: QUEtiapine 25 MG TAB PO SCH (21:07)
[2023-02-19] MEDS ORDERED: Sodium Chloride 0.9% 500 ML IV SCH (23:59)
[2023-02-20 00:28] LABS: #Eosinphils 0.3 thou/uL (0.0-0.7); #Monocytes 0.5 thou/uL (0.11-0.59); #Neutrophils 6.6 thou/uL (1.40-6.50); %Basophils 0.5 % (0.0-1.0); %Eosinophils 3.3 % (0.0-10.0); %Lymphocytes 5.8 % (21.0-51.0); %Monocytes 6.6 % (0.0-10.0); %Neutrophils 83.2 % (42.0-75.0); Hematocrit 25.4 % (36.0-47.0); Hemoglobin 7.7 g/dL (12.0-16.0); Mean Corpuscular HGB CONC 30.3 g/dL (32.0-36.0); Mean Corpuscular Hemoglobin 28.1 pg (27.0-31.0); Mean Corpuscular Volume 92.7 fl (78.0-98.0); Mean Platelet Volume 9.7 fL (7.4-10.4); Platelet Count 233 10x3/uL (130-400); RBC Distribution Width 18.1 % (11.5-14.5); Red Blood Cell (RBC) Count 2.74 mill/uL (4.20-5.40); White Blood Cell (WBC) Count 7.9 10x3/uL (4.8-10.8)
[2023-02-20] MEDS ORDERED: Potassium Chloride 20 MEQ in Premix 1 BAG IVPB SCH (01:00)
[2023-02-20 02:14] LABS: Magnesium 1.9 mg/dL (1.6-2.6)
[2023-02-20 04:06] LABS: #Eosinphils 0.3 thou/uL (0.0-0.7); #Monocytes 0.5 thou/uL (0.11-0.59); #Neutrophils 5.9 thou/uL (1.40-6.50); %Basophils 0.6 % (0.0-1.0); %Eosinophils 3.7 % (0.0-10.0); %Lymphocytes 6.3 % (21.0-51.0); %Monocytes 7.4 % (0.0-10.0); %Neutrophils 81.4 % (42.0-75.0); Hematocrit 26.4 % (36.0-47.0); Hemoglobin 7.9 g/dL (12.0-16.0); Mean Corpuscular HGB CONC 29.9 g/dL (32.0-36.0); Mean Corpuscular Hemoglobin 27.7 pg (27.0-31.0); Mean Corpuscular Volume 92.6 fl (78.0-98.0); Mean Platelet Volume 9.7 fL (7.4-10.4); Platelet Count 235 10x3/uL (130-400); Red Blood Cell (RBC) Count 2.85 mill/uL (4.20-5.40); White Blood Cell (WBC) Count 7.3 10x3/uL (4.8-10.8)
[2023-02-20 04:41] LABS: Anion Gap 16 mmol/L (10-20); BUN (Urea Nitrogen) 28 mg/dL (9.8-20.1); Calc. Creatinine Clearance 34 mL/min (70-130); Calcium 7.9 mg/dL (7.8-10.44); Carbon Dioxide 25 mmol/L (23-31); Chloride 107 mmol/L (98-107); Estimated GFR 60; Glucose 70 mg/dL (83-110); Potassium 3.7 mmol/L (3.5-5.1); Sodium 144 mmol/L (136-145)
[2023-02-20] MEDS: Furosemide 20 MG/2 ML VIAL SLOW IVP SCH ×2 (06:17→13:50)
[2023-02-20] MEDS: Venlafaxine HCl XR 150 MG CAP PO SCH (08:43)
[2023-02-20] MEDS: Famotidine 20 MG TAB PO SCH ×2 (08:43→21:41)
[2023-02-20] MEDS: Acetaminophen 500 MG TAB PO SCH ×2 (08:43→21:42)
[2023-02-20] MEDS: Ferrous Sulfate 325 MG TAB PO SCH ×2 (08:43→16:55)
[2023-02-20] MEDS: Amiodarone 200 MG TAB PO SCH (08:44)
[2023-02-20] MEDS: Acetaminophen 325 MG TAB PO PRN (13:50)
[2023-02-20] MEDS: Cefepime 1 GM in Sodium Chloride 0.9% 100 ML IVPB SCH (16:55)
[2023-02-20] MEDS: Atorvastatin Calcium 40 MG TAB PO SCH (21:40)
[2023-02-20] MEDS: QUEtiapine 25 MG TAB PO SCH (21:41)
[2023-02-20] MEDS: Melatonin 3 MG TAB PO PRN (22:56)
[2023-02-21 02:01] LABS: Lactic Acid 0.8 mmol/L (0.5-2.2)
[2023-02-21 02:05] LABS: ALT (SGPT) 26 U/L (8-55); AST (SGOT) 32 U/L (5-34); Albumin 2.9 g/dL (3.4-4.8); Alkaline Phosphatase 179 U/L (40-110); Anion Gap 12 mmol/L (10-20); BUN (Urea Nitrogen) 29 mg/dL (9.8-20.1); Bilirubin, Total 0.3 mg/dL (0.2-1.2); Calc. Creatinine Clearance 31 mL/min (70-130); Calcium 8.1 mg/dL (7.8-10.44); Carbon Dioxide 28 mmol/L (23-31); Chloride 104 mmol/L (98-107); Estimated GFR 51; Globulin 3.1 g/dL (2.4-3.5); Glucose 97 mg/dL (83-110); Potassium 3.7 mmol/L (3.5-5.1); Sodium 140 mmol/L (136-145)
[2023-02-21 04:46] LABS: #Eosinphils 0.4 thou/uL (0.0-0.7); #Monocytes 0.5 thou/uL (0.11-0.59); %Basophils 0.6 % (0.0-1.0); %Eosinophils 5.2 % (0.0-10.0); %Lymphocytes 11.5 % (21.0-51.0); %Monocytes 7.4 % (0.0-10.0); %Neutrophils 74.6 % (42.0-75.0); Hematocrit 27.1 % (36.0-47.0); Hemoglobin 8.1 g/dL (12.0-16.0); Mean Corpuscular HGB CONC 29.9 g/dL (32.0-36.0); Mean Corpuscular Volume 90.3 fl (78.0-98.0); Mean Platelet Volume 9.7 fL (7.4-10.4); Platelet Count 232 10x3/uL (130-400); White Blood Cell (WBC) Count 6.8 10x3/uL (4.8-10.8)
[2023-02-21] MEDS: Cefepime 1 GM in Sodium Chloride 0.9% 100 ML IVPB SCH ×2 (04:54→15:09)
[2023-02-21 05:08] LABS: Anion Gap 12 mmol/L (10-20); BUN (Urea Nitrogen) 29 mg/dL (9.8-20.1); Calc. Creatinine Clearance 31 mL/min (70-130); Calcium 8.3 mg/dL (7.8-10.44); Carbon Dioxide 29 mmol/L (23-31); Chloride 105 mmol/L (98-107); Estimated GFR 53; Glucose 88 mg/dL (83-110); Potassium 3.6 mmol/L (3.5-5.1); Sodium 142 mmol/L (136-145)
[2023-02-21] MEDS: Furosemide 20 MG/2 ML VIAL SLOW IVP SCH ×2 (06:47→15:16)
[2023-02-21] MEDS: Famotidine 20 MG TAB PO SCH (09:33)
[2023-02-21] MEDS: Ferrous Sulfate 325 MG TAB PO SCH ×2 (09:34→16:52)
[2023-02-21] MEDS: Venlafaxine HCl XR 150 MG CAP PO SCH (09:34)
[2023-02-21] MEDS: Amiodarone 200 MG TAB PO SCH (09:34)
[2023-02-21] MEDS: Acetaminophen 500 MG TAB PO SCH ×2 (09:34→21:54)
[2023-02-21] MEDS: Acetaminophen 325 MG TAB PO PRN (16:52)
[2023-02-21] MEDS: Atorvastatin Calcium 40 MG TAB PO SCH (21:54)
[2023-02-21] MEDS: QUEtiapine 25 MG TAB PO SCH (21:54)
[2023-02-21] MEDS: Melatonin 3 MG TAB PO PRN (21:55)
[2023-02-22] MEDS ORDERED: Sodium Chloride 0.9% 500 ML IV SCH (02:45)
[2023-02-22] MEDS: Cefepime 1 GM in Sodium Chloride 0.9% 100 ML IVPB SCH ×2 (04:28→15:22)
[2023-02-22 04:35] LABS: #Eosinphils 0.4 thou/uL (0.0-0.7); #Monocytes 0.5 thou/uL (0.11-0.59); #Neutrophils 5.6 thou/uL (1.40-6.50); %Basophils 0.5 % (0.0-1.0); %Eosinophils 5.1 % (0.0-10.0); %Lymphocytes 12.6 % (21.0-51.0); %Monocytes 7.2 % (0.0-10.0); %Neutrophils 74.1 % (42.0-75.0); Hematocrit 29.8 % (36.0-47.0); Hemoglobin 8.8 g/dL (12.0-16.0); Mean Corpuscular HGB CONC 29.5 g/dL (32.0-36.0); Mean Corpuscular Hemoglobin 27.2 pg (27.0-31.0); Mean Corpuscular Volume 92.3 fl (78.0-98.0); Mean Platelet Volume 9.9 fL (7.4-10.4); Platelet Count 231 10x3/uL (130-400); RBC Distribution Width 17.9 % (11.5-14.5); Red Blood Cell (RBC) Count 3.23 mill/uL (4.20-5.40); White Blood Cell (WBC) Count 7.5 10x3/uL (4.8-10.8)
[2023-02-22 05:00] LABS: Anion Gap 15 mmol/L (10-20); BUN (Urea Nitrogen) 36 mg/dL (9.8-20.1); Calc. Creatinine Clearance 33 mL/min (70-130); Calcium 8.3 mg/dL (7.8-10.44); Carbon Dioxide 27 mmol/L (23-31); Chloride 103 mmol/L (98-107); Estimated GFR 56; Glucose 77 mg/dL (83-110); Potassium 3.2 mmol/L (3.5-5.1); Sodium 142 mmol/L (136-145)
[2023-02-22] MEDS: Acetaminophen 325 MG TAB PO PRN (05:30)
[2023-02-22] MEDS: Furosemide 20 MG/2 ML VIAL SLOW IVP SCH ×2 (05:36→15:23)
[2023-02-22] MEDS: Acetaminophen 500 MG TAB PO SCH ×2 (09:06→23:01)
[2023-02-22] MEDS: Famotidine 20 MG TAB PO SCH (09:06)
[2023-02-22] MEDS: Amiodarone 200 MG TAB PO SCH (09:07)
[2023-02-22] MEDS: Ferrous Sulfate 325 MG TAB PO SCH ×2 (09:07→15:23)
[2023-02-22] MEDS: Venlafaxine HCl XR 150 MG CAP PO SCH (09:07)
[2023-02-22] MEDS: Atorvastatin Calcium 40 MG TAB PO SCH (23:01)
[2023-02-22] MEDS: QUEtiapine 25 MG TAB PO SCH (23:02)
[2023-02-23] MEDS: Cefepime 1 GM in Sodium Chloride 0.9% 100 ML IVPB SCH ×2 (04:09→16:39)
[2023-02-23] MEDS: Furosemide 20 MG/2 ML VIAL SLOW IVP SCH ×2 (04:09→16:39)
[2023-02-23 04:56] LABS: #Basophils 0.1 thou/uL (0.0-0.2); #Eosinphils 0.3 thou/uL (0.0-0.7); #Monocytes 0.6 thou/uL (0.11-0.59); #Neutrophils 5.6 thou/uL (1.40-6.50); %Basophils 0.7 % (0.0-1.0); %Eosinophils 4.4 % (0.0-10.0); %Lymphocytes 12.4 % (21.0-51.0); %Neutrophils 73.8 % (42.0-75.0); Hematocrit 29.7 % (36.0-47.0); Mean Corpuscular HGB CONC 30.3 g/dL (32.0-36.0); Mean Corpuscular Hemoglobin 27.8 pg (27.0-31.0); Mean Corpuscular Volume 91.7 fl (78.0-98.0); Mean Platelet Volume 10.2 fL (7.4-10.4); Platelet Count 247 10x3/uL (130-400); RBC Distribution Width 17.8 % (11.5-14.5); Red Blood Cell (RBC) Count 3.24 mill/uL (4.20-5.40); White Blood Cell (WBC) Count 7.5 10x3/uL (4.8-10.8)
[2023-02-23 05:19] LABS: Anion Gap 13 mmol/L (10-20); BUN (Urea Nitrogen) 40 mg/dL (9.8-20.1); Calc. Creatinine Clearance 32 mL/min (70-130); Calcium 8.6 mg/dL (7.8-10.44); Carbon Dioxide 31 mmol/L (23-31); Chloride 101 mmol/L (98-107); Estimated GFR 54; Glucose 81 mg/dL (83-110); Sodium 142 mmol/L (136-145)
[2023-02-23] MEDS: Acetaminophen 500 MG TAB PO SCH ×2 (09:41→20:09)
[2023-02-23] MEDS: Famotidine 20 MG TAB PO SCH (09:42)
[2023-02-23] MEDS: Ferrous Sulfate 325 MG TAB PO SCH ×2 (09:42→16:40)
[2023-02-23] MEDS: Venlafaxine HCl XR 150 MG CAP PO SCH (09:42)
[2023-02-23] MEDS: Amiodarone 200 MG TAB PO SCH (09:42)
[2023-02-23] MEDS: Potassium Chloride 20 MEQ TAB PO SCH ×2 (11:28→16:39)
[2023-02-23] MEDS: QUEtiapine 25 MG TAB PO SCH (20:10)
[2023-02-23] MEDS: Atorvastatin Calcium 40 MG TAB PO SCH (20:10)
[2023-02-23] MEDS: Melatonin 3 MG TAB PO PRN (20:11)
[2023-02-24] MEDS: Cefepime 1 GM in Sodium Chloride 0.9% 100 ML IVPB SCH ×2 (04:09→16:20)
[2023-02-24 04:45] LABS: #Eosinphils 0.3 thou/uL (0.0-0.7); #Monocytes 0.6 thou/uL (0.11-0.59); #Neutrophils 6.1 thou/uL (1.40-6.50); %Basophils 0.5 % (0.0-1.0); %Eosinophils 3.8 % (0.0-10.0); %Lymphocytes 10.9 % (21.0-51.0); %Monocytes 7.4 % (0.0-10.0); %Neutrophils 76.6 % (42.0-75.0); Hematocrit 29.4 % (36.0-47.0); Hemoglobin 8.8 g/dL (12.0-16.0); Mean Corpuscular HGB CONC 29.9 g/dL (32.0-36.0); Mean Corpuscular Volume 90.2 fl (78.0-98.0); Mean Platelet Volume 10.7 fL (7.4-10.4); Platelet Count 251 10x3/uL (130-400); RBC Distribution Width 17.7 % (11.5-14.5); Red Blood Cell (RBC) Count 3.26 mill/uL (4.20-5.40)
[2023-02-24 05:08] LABS: Anion Gap 16 mmol/L (10-20); BUN (Urea Nitrogen) 44 mg/dL (9.8-20.1); Calc. Creatinine Clearance 29 mL/min (70-130); Calcium 8.7 mg/dL (7.8-10.44); Carbon Dioxide 29 mmol/L (23-31); Chloride 103 mmol/L (98-107); Estimated GFR 49; Glucose 95 mg/dL (83-110); Potassium 3.8 mmol/L (3.5-5.1); Sodium 144 mmol/L (136-145)
[2023-02-24] MEDS: Furosemide 20 MG/2 ML VIAL SLOW IVP SCH ×2 (05:56→13:24)
[2023-02-24] MEDS: Ferrous Sulfate 325 MG TAB PO SCH ×2 (09:06→16:21)
[2023-02-24] MEDS: Amiodarone 200 MG TAB PO SCH (09:07)
[2023-02-24] MEDS: Acetaminophen 500 MG TAB PO SCH ×2 (09:07→21:48)
[2023-02-24] MEDS: Venlafaxine HCl XR 150 MG CAP PO SCH (09:07)
[2023-02-24] MEDS: Famotidine 20 MG TAB PO SCH (09:07)
[2023-02-24] MEDS ORDERED: AcetaZOLAMIDE 250 MG TAB PO SCH (15:15)
[2023-02-24] MEDS: Atorvastatin Calcium 40 MG TAB PO SCH (21:48)
[2023-02-24] MEDS: QUEtiapine 25 MG TAB PO SCH (21:49)
[2023-02-24] MEDS: Melatonin 3 MG TAB PO PRN (21:49)
[2023-02-25] MEDS: Cefepime 1 GM in Sodium Chloride 0.9% 100 ML IVPB SCH ×2 (04:56→15:10)
[2023-02-25 06:13] LABS: #Basophils 0.1 thou/uL (0.0-0.2); #Eosinphils 0.2 thou/uL (0.0-0.7); #Monocytes 0.7 thou/uL (0.11-0.59); #Neutrophils 6.5 thou/uL (1.40-6.50); %Basophils 0.6 % (0.0-1.0); %Eosinophils 2.4 % (0.0-10.0); %Monocytes 8.3 % (0.0-10.0); %Neutrophils 78.2 % (42.0-75.0); Hematocrit 30.7 % (36.0-47.0); Hemoglobin 9.3 g/dL (12.0-16.0); Mean Corpuscular HGB CONC 30.3 g/dL (32.0-36.0); Mean Corpuscular Hemoglobin 27.5 pg (27.0-31.0); Mean Corpuscular Volume 90.8 fl (78.0-98.0); Mean Platelet Volume 10.3 fL (7.4-10.4); Platelet Count 250 10x3/uL (130-400); RBC Distribution Width 17.6 % (11.5-14.5); Red Blood Cell (RBC) Count 3.38 mill/uL (4.20-5.40); White Blood Cell (WBC) Count 8.3 10x3/uL (4.8-10.8)
[2023-02-25] MEDS: Furosemide 20 MG/2 ML VIAL SLOW IVP SCH ×3 (06:35→15:26)
[2023-02-25 06:36] LABS: Anion Gap 11 mmol/L (10-20); BUN (Urea Nitrogen) 60 mg/dL (9.8-20.1); Calc. Creatinine Clearance 30 mL/min (70-130); Calcium 9.5 mg/dL (7.8-10.44); Carbon Dioxide 34 mmol/L (23-31); Chloride 102 mmol/L (98-107); Estimated GFR 50; Glucose 97 mg/dL (83-110); Potassium 3.2 mmol/L (3.5-5.1); Sodium 144 mmol/L (136-145)
[2023-02-25] MEDS: Acetaminophen 500 MG TAB PO SCH ×2 (09:40→21:53)
[2023-02-25] MEDS: Ferrous Sulfate 325 MG TAB PO SCH ×2 (09:41→17:42)
[2023-02-25] MEDS: Amiodarone 200 MG TAB PO SCH (09:41)
[2023-02-25] MEDS: AcetaZOLAMIDE 250 MG TAB PO SCH (09:41)
[2023-02-25] MEDS: Venlafaxine HCl XR 150 MG CAP PO SCH (09:41)
[2023-02-25] MEDS: Famotidine 20 MG TAB PO SCH (09:41)
[2023-02-25] MEDS: Potassium Chloride 20 MEQ TAB PO SCH ×2 (12:01→15:11)
[2023-02-25] MEDS: Acetaminophen 325 MG TAB PO PRN (17:42)
[2023-02-25] MEDS: QUEtiapine 25 MG TAB PO SCH (21:52)
[2023-02-25] MEDS: Atorvastatin Calcium 40 MG TAB PO SCH (21:52)
[2023-02-25] MEDS: Melatonin 3 MG TAB PO PRN (21:53)
[2023-02-25] MEDS ORDERED: Ketorolac Tromethamine 30 MG/ML VIAL IVP SCH (23:59)
[2023-02-26] MEDS ORDERED: Sodium Chloride 0.9% 500 ML IV SCH (02:15)
[2023-02-26 02:49] LABS: #Basophils 0.1 thou/uL (0.0-0.2); #Eosinphils 0.4 thou/uL (0.0-0.7); #Monocytes 0.8 thou/uL (0.11-0.59); #Neutrophils 5.7 thou/uL (1.40-6.50); %Basophils 0.6 % (0.0-1.0); %Eosinophils 5.3 % (0.0-10.0); %Lymphocytes 12.5 % (21.0-51.0); %Monocytes 9.6 % (0.0-10.0); %Neutrophils 71.4 % (42.0-75.0); Hematocrit 30.7 % (36.0-47.0); Hemoglobin 9.2 g/dL (12.0-16.0); Mean Corpuscular Hemoglobin 27.6 pg (27.0-31.0); Mean Corpuscular Volume 92.2 fl (78.0-98.0); Mean Platelet Volume 10.2 fL (7.4-10.4); Platelet Count 273 10x3/uL (130-400); RBC Distribution Width 17.7 % (11.5-14.5); Red Blood Cell (RBC) Count 3.33 mill/uL (4.20-5.40); White Blood Cell (WBC) Count 7.9 10x3/uL (4.8-10.8)
[2023-02-26 04:25] LABS: Anion Gap 17 mmol/L (10-20); BUN (Urea Nitrogen) 56 mg/dL (9.8-20.1); Calc. Creatinine Clearance 26 mL/min (70-130); Calcium 9.1 mg/dL (7.8-10.44); Carbon Dioxide 26 mmol/L (23-31); Chloride 106 mmol/L (98-107); Estimated GFR 42; Glucose 87 mg/dL (83-110); Magnesium 2.2 mg/dL (1.6-2.6); Potassium 4.8 mmol/L (3.5-5.1); Sodium 144 mmol/L (136-145)
[2023-02-26] MEDS ORDERED: Furosemide 40 MG TAB PO SCH (09:00)
[2023-02-26] MEDS ORDERED: Furosemide 20 MG/2 ML VIAL SLOW IVP SCH ×2 (09:45→14:00)
[2023-02-26] MEDS: Acetaminophen 500 MG TAB PO SCH ×2 (10:01→21:03)
[2023-02-26] MEDS: Ferrous Sulfate 325 MG TAB PO SCH ×2 (10:01→17:02)
[2023-02-26] MEDS: Amiodarone 200 MG TAB PO SCH (10:02)
[2023-02-26] MEDS: Famotidine 20 MG TAB PO SCH (10:02)
[2023-02-26] MEDS: Venlafaxine HCl XR 150 MG CAP PO SCH (10:02)
[2023-02-26] MEDS: AcetaZOLAMIDE 250 MG TAB PO SCH (10:02)
[2023-02-26] MEDS: Melatonin 3 MG TAB PO PRN (21:03)
[2023-02-26] MEDS: Atorvastatin Calcium 40 MG TAB PO SCH (21:03)
[2023-02-26] MEDS: QUEtiapine 25 MG TAB PO SCH (21:03)
[2023-02-27] MEDS ORDERED: Sodium Chloride 0.9% 250 ML IV SCH (00:30)
[2023-02-27 04:24] LABS: #Basophils 0.1 thou/uL (0.0-0.2); #Eosinphils 0.5 thou/uL (0.0-0.7); #Monocytes 0.7 thou/uL (0.11-0.59); #Neutrophils 5.1 thou/uL (1.40-6.50); %Eosinophils 6.3 % (0.0-10.0); %Lymphocytes 13.8 % (21.0-51.0); %Monocytes 8.9 % (0.0-10.0); %Neutrophils 69.2 % (42.0-75.0); Hemoglobin 8.7 g/dL (12.0-16.0); Mean Corpuscular Hemoglobin 27.1 pg (27.0-31.0); Mean Corpuscular Volume 93.5 fl (78.0-98.0); Mean Platelet Volume 10.1 fL (7.4-10.4); Platelet Count 258 10x3/uL (130-400); RBC Distribution Width 17.6 % (11.5-14.5); Red Blood Cell (RBC) Count 3.21 mill/uL (4.20-5.40); White Blood Cell (WBC) Count 7.3 10x3/uL (4.8-10.8)
[2023-02-27 04:51] LABS: Anion Gap 14 mmol/L (10-20); BUN (Urea Nitrogen) 52 mg/dL (9.8-20.1); Calc. Creatinine Clearance 30 mL/min (70-130); Calcium 9.1 mg/dL (7.8-10.44); Carbon Dioxide 27 mmol/L (23-31); Chloride 106 mmol/L (98-107); Estimated GFR 50; Glucose 79 mg/dL (83-110); Potassium 3.9 mmol/L (3.5-5.1); Sodium 143 mmol/L (136-145)
[2023-02-27] MEDS: Acetaminophen 500 MG TAB PO SCH ×2 (08:22→21:00)
[2023-02-27] MEDS: AcetaZOLAMIDE 250 MG TAB PO SCH (08:22)
[2023-02-27] MEDS: Amiodarone 200 MG TAB PO SCH (08:22)
[2023-02-27] MEDS: Furosemide 40 MG TAB PO SCH ×2 (08:22→14:13)
[2023-02-27] MEDS: Famotidine 20 MG TAB PO SCH (08:22)
[2023-02-27] MEDS: Ferrous Sulfate 325 MG TAB PO SCH ×2 (08:22→18:15)
[2023-02-27] MEDS: Venlafaxine HCl XR 150 MG CAP PO SCH (08:22)
[2023-02-27] MEDS: Atorvastatin Calcium 40 MG TAB PO SCH (21:00)
[2023-02-27] MEDS: Melatonin 3 MG TAB PO PRN (21:02)
[2023-02-27] MEDS: QUEtiapine 25 MG TAB PO SCH (21:02)
[2023-02-28 04:01] LABS: #Basophils 0.1 thou/uL (0.0-0.2); #Eosinphils 0.4 thou/uL (0.0-0.7); #Monocytes 0.6 thou/uL (0.11-0.59); #Neutrophils 5.4 thou/uL (1.40-6.50); %Basophils 0.8 % (0.0-1.0); %Eosinophils 4.7 % (0.0-10.0); %Lymphocytes 12.8 % (21.0-51.0); %Monocytes 8.5 % (0.0-10.0); %Neutrophils 72.7 % (42.0-75.0); Hematocrit 30.6 % (36.0-47.0); Hemoglobin 8.9 g/dL (12.0-16.0); Mean Corpuscular HGB CONC 29.1 g/dL (32.0-36.0); Mean Corpuscular Hemoglobin 27.2 pg (27.0-31.0); Mean Corpuscular Volume 93.6 fl (78.0-98.0); Mean Platelet Volume 10.3 fL (7.4-10.4); Platelet Count 274 10x3/uL (130-400); RBC Distribution Width 17.2 % (11.5-14.5); Red Blood Cell (RBC) Count 3.27 mill/uL (4.20-5.40); White Blood Cell (WBC) Count 7.4 10x3/uL (4.8-10.8)
[2023-02-28 04:26] LABS: Anion Gap 15 mmol/L (10-20); BUN (Urea Nitrogen) 49 mg/dL (9.8-20.1); Calc. Creatinine Clearance 26 mL/min (70-130); Carbon Dioxide 27 mmol/L (23-31); Chloride 108 mmol/L (98-107); Estimated GFR 42; Glucose 80 mg/dL (83-110); Sodium 146 mmol/L (136-145)
[2023-02-28] MEDS: Acetaminophen 500 MG TAB PO SCH ×2 (09:06→22:37)
[2023-02-28] MEDS: Famotidine 20 MG TAB PO SCH (09:08)
[2023-02-28] MEDS: Furosemide 40 MG TAB PO SCH ×2 (09:08→12:43)
[2023-02-28] MEDS: Amiodarone 200 MG TAB PO SCH (09:08)
[2023-02-28] MEDS: Ferrous Sulfate 325 MG TAB PO SCH ×2 (09:08→18:40)
[2023-02-28] MEDS: AcetaZOLAMIDE 250 MG TAB PO SCH ×2 (09:09→12:42)
[2023-02-28] MEDS ORDERED: Sodium Chloride 0.9% 1,000 ML IV SCH (11:15)
[2023-02-28] MEDS: Venlafaxine HCl XR 150 MG CAP PO SCH (12:51)
[2023-02-28] MEDS: Acetaminophen 325 MG TAB PO PRN (15:38)
[2023-02-28] MEDS: QUEtiapine 25 MG TAB PO SCH (22:37)
[2023-02-28] MEDS: Atorvastatin Calcium 40 MG TAB PO SCH (22:38)
[2023-03-01 08:12] VITALS: TEMP 97.8
[2023-03-01] MEDS: Ferrous Sulfate 325 MG TAB PO SCH (08:22)
[2023-03-01] MEDS ORDERED: Furosemide 40 MG TAB PO SCH (09:00)
[2023-03-01 09:59] VITALS: BP 116/54
[2023-03-01] MEDS: Venlafaxine HCl XR 150 MG CAP PO SCH (09:59)
[2023-03-01] MEDS: AcetaZOLAMIDE 250 MG TAB PO SCH (09:59)
[2023-03-01] MEDS: Acetaminophen 500 MG TAB PO SCH (10:00)
[2023-03-01] MEDS: Amiodarone 200 MG TAB PO SCH (10:00)
[2023-03-01] MEDS: Famotidine 20 MG TAB PO SCH (10:00)
== END 2023-03-01 12:22 | DRG 280 ==
LOC: ERS 13:40 → 2NO 17:29
PROVIDERS: ADMIT Hospitalist; ATTEND Internal Medicine
DX: I11.0 Hypertensive heart disease with heart failure (principal); I50.33 Acute on chronic diastolic (congestive) heart failure; I21.A1 Myocardial infarction type 2; L89.153 Pressure ulcer of sacral region, stage 3; J96.21 Acute and chronic respiratory failure with hypoxia; I48.20 Chronic atrial fibrillation, unspecified; N17.9 Acute kidney failure, unspecified; N39.0 Urinary tract infection, site not specified; E87.0 Hyperosmolality and hypernatremia; E78.5 Hyperlipidemia, unspecified; F03.90 Unspecified dementia, unspecified severity, without behavioral disturbance, psychotic disturbance, mood disturbance, and anxiety; F41.9 Anxiety disorder, unspecified; F32.A Depression, unspecified; K59.00 Constipation, unspecified; Z66 Do not resuscitate; I08.3 Combined rheumatic disorders of mitral, aortic and tricuspid valves; I71.40 Abdominal aortic aneurysm, without rupture, unspecified; I95.9 Hypotension, unspecified; T50.1X5A Adverse effect of loop [high-ceiling] diuretics, initial encounter; E87.6 Hypokalemia; D63.8 Anemia in other chronic diseases classified elsewhere; I25.2 Old myocardial infarction; Z90.710 Acquired absence of both cervix and uterus; Z98.890 Other specified postprocedural states; Z99.81 Dependence on supplemental oxygen; Z79.899 Other long term (current) drug therapy
CPT/HCPCS: 36415; 71045; 71275; 74174; 74177; 80048; 80053; 81001; 83605; 83690; 83735; 83880; 84484; 85025; 86850; 86900; 86901; 87086; 93005; 96374; 96375; 97139; J0692; J0744; J1885; J1940; J2405; J3010; J3480; J3490; J7030; J7050; J7120; Q9967